=== PATIENT | female | born 1950 | race Caucasian/White ===

== ENCOUNTER → 2018-09-29 12:41 | Outpatient (CLI) | payer MEDICARE, SELFPAY ==
[2018-10-01 11:48] LABS: HPV Reflexed? NOT INDICATED
== END ==
PROVIDERS: Family Provider Internal Medicine Infectious Disease; PCP Internal Medicine Infectious Disease; Referring Provider Obstetrics & Gynecology; Visit Provider Obstetrics & Gynecology
DX: Z01.419 Encounter for gynecological examination (general) (routine) without abnormal findings (principal)
CPT/HCPCS: 87624; 88175; G0145

== ENCOUNTER → 2021-11-19 | Outpatient (CLI) | payer MEDICARE, SELFPAY ==
--- NOTE | 2021-11-19 07:07 | ECHOD_ITS ---
Reason For Study: Arrhythmia Procedure This was a 2D Doppler, Color Flow transthoracic echocardiogram. The exam was of adequate technical quality. Exam performed in department. Left Ventricle Normal LV size. Apical false tendon noted. Left ventricular systolic function is normal. The estimated ejection fraction is 60 %. Diastolic function is indeterminate. No regional wall motion abnormalities noted. Right Ventricle Normal RV size. Normal systolic function. Atria Normal left atrium. Normal right atrium. No doppler evidence for ASD. Mitral Valve There is no mitral annular calcification. Normal mitral valve. Mild (1+) mitral valve insufficiency. Tricuspid Valve Normal tricuspid valve. Trivial tricuspid valve insufficiency. Unable to estimate RV systolic pressure due to insufficient tricuspid regurgitant envelope. Aortic Valve Trisinus/trileaflet aortic valve. Moderate focal aortic valve calcification. Pulmonic Valve The pulmonic valve is not well visualized. Trivial pulmonic valve insufficiency. Great Vessels Normal sized aortic root. Pericardium/Pleural No pericardial effusion. MMode/2D Measurements & Calculations LVIDd: 4.5 cm IVSd: 0.94 cm Ao root diam: 3.2 cm LVIDs: 2.9 cm LVPWd: 0.91 cm RVDd: 2.5 cm FS: 35.4 % LAV(MOD-bp): 35.9 ml LVAd ap4: 25.7 cm2 LVAd ap2: 23.1 cm2 LAV(MOD-bp) Indexed: 20.4 ml/m2 LVLd ap4: 7.1 cm LVLd ap2: 7.1 cm LAV(MOD-sp2): 35.5 ml EDV(MOD-sp4): 77.2 ml EDV(MOD-sp2): 63.6 ml LAV(MOD-sp4): 36.0 ml EDV(sp4-el): 78.7 ml EDV(sp2-el): 63.5 ml LVAs ap4: 14.6 cm2 LVAs ap2: 13.4 cm2 LVLs ap4: 6.1 cm LVLs ap2: 6.2 cm ESV(MOD-sp4): 30.4 ml ESV(MOD-sp2): 25.7 ml ESV(sp4-el): 29.5 ml ESV(sp2-el): 24.5 ml EF(MOD-sp4): 60.6 % EF(MOD-sp2): 59.6 % EF(sp4-el): 62.5 % SV(MOD-sp4): 46.8 ml SV(MOD-sp2): 37.9 ml SV(sp4-el): 49.1 ml LA dimension(2D): 3.7 cm LA A4 area: 14.5 cm2 RA A4 area: 10.5 cm2 Time Measurements MV dec time: 0.19 sec Doppler Measurements & Calculations MV E max tommy: 86.9 cm/sec Lat Peak E' Tommy: 8.2 cm/sec Med Peak E' Tommy: 7.5 cm/sec MV A max tommy: 86.9 cm/sec E/E' lat: 10.5 E/E' med: 11.6 MV E/A: 1.0 MV dec slope: 454.5 cm/sec2 Ao V2 max: 135.6 cm/sec LV V1 max: 114.3 cm/sec Ao max P.4 mmHg LV V1 max P.2 mmHg Ao V2 mean: 92.9 cm/sec LV V1 mean P.8 mmHg Ao mean P.0 mmHg LV V1 mean: 79.5 cm/sec Ao V2 VTI: 32.9 cm LV V1 VTI: 26.6 cm PA V2 max: 106.9 cm/sec PA V2 mean: 74.6 cm/sec ECHO/Echo Complete Interpretation Summary Left ventricular systolic function is normal. The estimated ejection fraction is 60 %. Apical false tendon noted. Mild (1+) mitral valve insufficiency. Trivial tricuspid valve insufficiency. Moderate focal aortic valve calcification. Trivial pulmonic valve insufficiency. Unable to estimate RV systolic pressure due to insufficient tricuspid regurgita nt envelope. Diastolic function is indeterminate. Ordering Physician: Kevin De Leon Referring Physician: Poly Barrow Performed By: Sonya Kerr RDCS
== END | disposition home or self-care (01) ==
PROVIDERS: PCP Internal Medicine Infectious Disease; Referring Provider Internal Medicine Cardiovascular Disease; Visit Provider Internal Medicine Cardiovascular Disease
DX: R00.2 Palpitations (principal); I45.5 Other specified heart block; R00.0 Tachycardia, unspecified; E78.00 Pure hypercholesterolemia, unspecified; R94.31 Abnormal electrocardiogram [ECG] [EKG]
CPT/HCPCS: 78452; 93017; 93306; A9500; A4216

== ENCOUNTER → 2022-04-01 | Outpatient (CLI) | payer MEDICARE, SELFPAY ==
--- NOTE | 2022-04-01 13:26 | VDUE_ITS ---
Reason For Study: LUE SWELLING Right Proximal Left Proximal Right subclavian vein is spontaneous, widely Left jugular vein is spontaneous, widely patent, phasic, with no intraluminal patent, phasic, with no intraluminal echogenicity noted. echogenicity noted. Left Arm Left axillary vein is spontaneous, patent, phasic, competent, compressible and demonstrates augmentation. Left brachial vein is compressible. Left cephalic vein is compressible. Left basilic vein is compressible. Left Lower Arm Left radial vein is compressible. Left ulnar vein is compressible. VL/Venous Duplex US, Unilateral Interpretation Summary No evidence for acute deep venous thrombosis[left] upper extremity with patent and compressible cephalic and basilic veins. Normal flow patterns right subclavian vein Ordering Physician: Nay Welsh Referring Physician: Poly Barrow Performed By: Felicita Rios, RDHEATHER, RVT ???
== END | disposition home or self-care (01) ==
LOC: CVS 13:25
PROVIDERS: PCP Internal Medicine Infectious Disease; Visit Provider Nurse Practitioner Gerontology
DX: M79.89 Other specified soft tissue disorders (principal)
CPT/HCPCS: 36415; 80048; 93971

== ENCOUNTER → 2022-04-01 | Outpatient (CLI) | payer MEDICARE, SELFPAY ==
[2022-04-01 15:14] LABS: Anion Gap 9 (5-15); BUN 23 mg/dL (7-18); BUN/Creat Ratio 23.8 RATIO (10-20); Calcium,Total 9.3 mg/dL (8.5-10.1); Chloride 103 mmol/L (98-107); Creatinine, Serum 0.96 mg/dL (0.55-1.02); EST Glomerular Filtration Rate 61 mL/min (>60); Est Glom Filt Rate - Afr Amer 74 mL/min (>60); Glucose 128 mg/dL (74-106); Potassium 3.6 mmol/L (3.5-5.1); Sodium Level 138 mmol/L (136-145)
== END | disposition home or self-care (01) ==
LOC: LAB 12:13
PROVIDERS: PCP Internal Medicine Infectious Disease; Referring Provider Nurse Practitioner Gerontology; Visit Provider Nurse Practitioner Gerontology
DX: E87.6 Hypokalemia (principal)
CPT/HCPCS: 36415; 80048

== ENCOUNTER → 2024-04-06 | Outpatient (CLI) | payer MEDICARE, SELFPAY ==
[2024-04-06 14:58] LABS: Absolute Lymphocyte Count 2.53 X10^3/uL (0.83-4.51); Absolute Neutrophil Count 4.9 X10^3/uL (2.0-7.7); Basophil# 0.06 X10^3/uL; Basophil% 0.7 % (0-1); Eosinophil# 0.41 X10^3/uL; Eosinophils% 4.8 % (0-5); Hematocrit 35.9 % (37-47); Lymphocyte # 2.53 X10^3/ul (0.83-4.51); Lymphocyte % 29.8 % (19-41); Mean Corp Hgb Conc 30.6 g/dL (32-36); Mean Corpuscular Hgb 23.8 pg (27.0-32.0); Mean Corpuscular Volume 77.5 fL (81-99); Mean Platelet Vol. 10.7 fl (6.2-12.0); Monocyte# 0.61 X10^3/uL; Monocyte% 7.2 % (0-10); NRBC Flagged by Analyzer 0 % (0-5); Neutrophil # 4.86 X10^3/uL (2.7-7.7); Neutrophil % 57.1 % (47-70); Platelet Count 325 K/mm3 (150-450); RBC Distribution Width CV 16.1 % (11.6-14.6); RBC Distribution Width SD 45.3 fl (35.1-43.9); Red Blood Count 4.63 M/mm3 (4.2-5.4); White Blood Count 8.5 K/mm3 (4.4-11.0)
[2024-04-06 15:39] LABS: Anion Gap 3 (5-15); BUN 29 mg/dL (7-18); BUN/Creat Ratio 35.5 RATIO (10-20); Calcium,Total 9.5 mg/dL (8.5-10.1); Chloride 105 mmol/L (98-107); Creatinine, Serum 0.82 mg/dL (0.55-1.02); EST Glomerular Filtration Rate 73 mL/min (>60); Est Glom Filt Rate - Afr Amer 89 mL/min (>60); Glucose 102 mg/dL (74-106); Potassium 3.9 mmol/L (3.5-5.1); Sodium Level 138 mmol/L (136-145)
== END | disposition home or self-care (01) ==
LOC: LAB 14:37
PROVIDERS: PCP Internal Medicine Infectious Disease; Referring Provider Nurse Practitioner Family; Visit Provider Nurse Practitioner Family
DX: R00.2 Palpitations (principal); E11.9 Type 2 diabetes mellitus without complications; R00.0 Tachycardia, unspecified; E03.9 Hypothyroidism, unspecified; E87.6 Hypokalemia
CPT/HCPCS: 36415; 80048; 83735; 84443; 85025

== ENCOUNTER → 2024-04-08 | Outpatient (CLI) | payer MEDICARE, SELFPAY | END | disposition home or self-care (01) | LOC: PSN 08:15 | PROVIDERS: PCP Internal Medicine Infectious Disease; Referring Provider Nurse Practitioner Family; Visit Provider Nurse Practitioner Family | DX: R00.2 Palpitations (principal); I48.0 Paroxysmal atrial fibrillation; R00.0 Tachycardia, unspecified | CPT/HCPCS: 93225; 93226 ==

== ENCOUNTER → 2024-11-08 | Outpatient (CLI) | payer MEDICARE, SELFPAY ==
[2024-11-08 14:40] LABS: Hematocrit 34.5 % (37-47); Hemoglobin 10.4 g/dL (12.0-15.0); Immature Granulocytes Count 0.030 X10^3/uL (0.0-0.0); Mean Corp Hgb Conc 30.1 g/dL (32-36); Mean Corpuscular Volume 75.2 fL (81-99); Mean Platelet Vol. 10.6 fl (6.2-12.0); NRBC Flagged by Analyzer 0 % (0-5); Platelet Count 348 K/mm3 (150-450); RBC Distribution Width CV 17.0 % (11.6-14.6); RBC Distribution Width SD 45.3 fl (35.1-43.9); Red Blood Count 4.59 M/mm3 (4.2-5.4); White Blood Count 8.1 K/mm3 (4.4-11.0)
[2024-11-08 16:33] LABS: Anion Gap 15 (5-15); BUN 16 mg/dL (4-19); BUN/Creat Ratio 20.1 RATIO (10-20); Calcium,Total 9.6 mg/dL (7.6-11.0); Carbon Dioxide 22.9 mmol/L (21.0-32.0); Chloride 102 mmol/L (98-108); Glucose 140 mg/dL (70-99); Potassium 3.7 mmol/L (3.3-5.1)
== END | disposition home or self-care (01) ==
LOC: LAB 14:10
PROVIDERS: PCP Internal Medicine Infectious Disease; Referring Provider Nurse Practitioner Gerontology; Visit Provider Nurse Practitioner Gerontology
DX: R00.0 Tachycardia, unspecified (principal); R00.2 Palpitations
CPT/HCPCS: 36415; 80048; 84443; 85025

== ENCOUNTER → 2024-11-25 | Outpatient (CLI) | payer MEDICARE, SELFPAY ==
--- NOTE | 2024-11-25 15:51 | ECHOD_ITS ---
Reason For Study Reason For Study: MURMUR Procedure This was a 2D Doppler, Color Flow transthoracic echocardiogram. Exam performed in department. Left Ventricle Normal LV size. The estimated ejection fraction is 55 %. Stage 1 diastolic dysfunction. No regional wall motion abnormalities noted. Right Ventricle Normal RV size. Normal systolic function. Atria Normal left atrium. Normal right atrium. Mitral Valve Normal mitral valve. Tricuspid Valve Normal tricuspid valve. Aortic Valve Normal aortic valve. Trisinus/trileaflet aortic valve. Pulmonic Valve Normal pulmonic valve. Great Vessels Normal aortic root. The pulmonary artery is normal size. Inferior vena cava collapse with respiration. Pericardium/Pleural No pericardial effusion. MMode/2D Measurements & Calculations LVIDd: 4.5 cm IVSd: 0.86 cm Ao root diam: 3.0 cm LVIDs: 3.0 cm LVPWd: 0.93 cm RVDd: 2.2 cm FS: 33.8 % LAV(MOD-bp): 47.6 ml LVAd ap4: 21.0 cm2 SV(MOD-sp4): 33.4 ml LAV(MOD-bp) Indexed: 27.5 ml/m2 LVLd ap4: 6.0 cm SI(MOD-sp4): 19.4 ml/m2 LAV(MOD-sp2): 43.9 ml EDV(MOD-sp4): 61.8 ml LAV(MOD-sp4): 46.0 ml EDV(sp4-el): 62.6 ml LVAs ap4: 12.9 cm2 LVLs ap4: 5.0 cm ESV(MOD-sp4): 28.3 ml ESV(sp4-el): 28.3 ml EF(MOD-sp4): 54.2 % EF(sp4-el): 54.9 % SV(sp4-el): 34.4 ml LA A4 area: 16.9 cm2 LA dimension(2D): 4.0 cm RA A4 area: 9.9 cm2 Time Measurements MV dec time: 0.16 sec Doppler Measurements & Calculations MV E max tommy: 82.7 cm/sec Lat Peak E' Tommy: 10.2 cm/sec Med Peak E' Tommy: 8.6 cm/sec MV A max tommy: 103.7 cm/sec E/E' lat: 8.1 E/E' med: 9.6 MV E/A: 0.80 MV V2 max: 108.9 cm/sec MV P1/2t max tommy: 90.1 cm/sec Ao V2 max: 156.2 cm/sec MV max P.7 mmHg MV P1/2t: 46.1 msec Ao max P.8 mmHg MV V2 mean: 60.1 cm/sec Ao V2 mean: 113.8 cm/sec MV mean P.7 mmHg MV dec slope: 571.7 cm/sec2 Ao mean P.5 mmHg MV V2 VTI: 24.1 cm MVA(P1/2t): 4.8 cm2 Ao V2 VTI: 30.0 cm AV (velocity ratio): 0.70 LV V1 max: 100.5 cm/sec PA V2 max: 115.1 cm/sec PI end-d tommy: 129.2 cm/sec LV V1 max P.0 mmHg PA V2 mean: 84.2 cm/sec LV V1 mean P.0 mmHg LV V1 mean: 66.8 cm/sec LV V1 VTI: 20.9 cm ECHO/Echo Complete Interpretation Summary Normal LV size. The estimated ejection fraction is 55 %. Stage 1 diastolic dysfunction. Structurally normal valves. Ordering Physician: Nay Welsh Referring Physician: Poly Barrow Performed By: Felicita Rios RDCS, RVT
== END | disposition home or self-care (01) ==
LOC: CVS 15:50
PROVIDERS: PCP Internal Medicine Infectious Disease; Referring Provider Nurse Practitioner Gerontology; Visit Provider Nurse Practitioner Gerontology
DX: R01.1 Cardiac murmur, unspecified (principal)
CPT/HCPCS: 93306

== ENCOUNTER → 2024-12-02 | Outpatient (CLI) | payer MEDICARE, SELFPAY ==
--- OUTSIDE RECORDS SUMMARY | 2024-12-02 07:51 | XMS RPT_ITS | CCD ---
Author Organization [facility] Care Team Providers Care Predictive Maintenance Specialist Name Role Phone Dr. Poly Sutherland Primary Care Provider [phone] Maranda Vargas Attending Provider Unavailable Dr. Poly Sutherland Referring Provider Dr. Kevin De Leon Attending Provider [phone] Dr. Kevin De Leon Referring Provider Dr. Kevin De Leon Other Provider Dr. Poly Sutherland Primary Care Provider [phone] Poly Sutherland Referring Provider [phone] Blaise TAO, DRUG INSPECTOR-C Nay Attending Provider Dr. Jose F Ignacio Attending Provider Poly Sutherland MD Primary Care Provider DR POLY SUTHERLAND MD Primary Care Physician Poly Sutherland MD Primary Care Provider Dr. Poly Sutherland MD Primary Care Provider Dr. Poly Sutherland MD Referring Provider [phone] Blaise TAO-CNay Attending Provider ERASMO TAO, GABRIELLE BARKER Attending Unavaila FRANTZ Khan DO Unavailable DR POLY SUTHERLAND MD Primary Care Unavailable MILES, CHRISTEL Attending Unavailable POLY SUTHERLAND Primary Care Unavailable POLY SUTHERLAND Primary Care Unavailable MILES, CHRISTEL Attending Unavailable MILES, CHRISTEL Attending Unavailable POLY SUTHERLAND Primary Care Unavailable MILES, CHRISTEL Attending Unavailable POLY SUTHERLAND Primary Care Unavailable Blaise CABRALC, aNy Referring Provider [phone] MILES, CHRISTEL [facility] Primary Care Unavailable MILES, CHRISTEL BAG MACHINE OPERATOR Attending Unavailable POLY SUTHERLAND MD Consulting Unavailable MILES, CHRISTEL BAG MACHINE OPERATOR Admitting Unavailable PROVIDER, UNKNOWN Consulting Unavailable PROVIDER, UNKNOWN Consulting Unavailable PROVIDER, UNKNOWN Consulting Unavailable MILES, CHRISTEL BAG MACHINE OPERATOR Admitting Unavailable MILES, CHRISTEL BAG MACHINE OPERATOR Primary Care Unavailable MILES, CHRISTEL BAG MACHINE OPERATOR Attending Unavailable POLY SUTHERLAND MD Consulting Unavailable PROVIDER, UNKNOWN Consulting Unavailable PROVIDER, UNKNOWN Consulting Unavailable PROVIDER, UNKNOWN Consulting Unavailable POLY SUTHERLAND MD Consulting Unavailable ERASMO, GABRIELLE M Primary Care Unavailable ERASMO, GABRIELLE M Admitting Unavailable ERASMO, GABRIELLE M Attending Unavailable PROVIDER, UNKNOWN Consulting Unavailable PROVIDER, UNKNOWN Consulting Unavailable PROVIDER, UNKNOWN Consulting Unavailable MILES, CHRISTEL BAG MACHINE OPERATOR Admitting Unavailable MILES, CHRISTEL BAG MACHINE OPERATOR Primary Care Unavailable MILES, CHRISTEL BAG MACHINE OPERATOR Attending Unavailable POLY SUTHERLAND MD Consulting Unavailable PROVIDER, UNKNOWN Consulting Unavailable PROVIDER, UNKNOWN Consulting Unavailable PROVIDER, UNKNOWN Consulting Unavailable OPLY SUTHERLAND MD Primary Care Unavailable POLY SUTHERLAND MD Admitting Unavailable POLY SUTHERLAND MD Consulting Unavailable POLY SUTHERLAND MD Attending Unavailable PROVIDER, UNKNOWN Consulting Unavailable PROVIDER, UNKNOWN Consulting Unavailable PROVIDER, UNKNOWN Consulting Unavailable POLY SUTHERLAND MD Admitting Unavailable POLY SUTHERLAND MD Primary Care Unavailable POLY SUTHERLAND MD Consulting Unavailable POLY SUTHERLAND MD Attending Unavailable PROVIDER, UNKNOWN Consulting Unavailable PROVIDER, UNKNOWN Consulting Unavailable PROVIDER, UNKNOWN Consulting Unavailable POLY SUTHERLAND MD Primary Care Unavailable POLY SUTHERLAND MD Admitting Unavailable POLY SUTHERLAND MD Consulting Unavailable POLY SUTHERLAND MD Attending Unavailable PROVIDER, UNKNOWN Consulting Unavailable PROVIDER, UNKNOWN Consulting Unavailable PROVIDER, UNKNOWN Consulting Unavailable POLY SUTHERLAND MD Consulting Unavailable ERASMO, GABRIELLE M Primary Care Unavailable ERASMO, GABRIELLE M Admitting Unavailable ERASMO, GABRIELLE M Attending Unavailable PROVIDER, UNKNOWN Consulting Unavailable PROVIDER, UNKNOWN Consulting Unavailable PROVIDER, UNKNOWN Consulting Unavailable POLY SUTHERLAND MD Consulting Unavailable ERASMO, GABRIELLE M Admitting Unavailable ERASMO, GABRIELLE M Primary Care Unavailable ERASMO, GABRIELLE M Attending Unavailable PROVIDER, UNKNOWN Consulting Unavailable PROVIDER, UNKNOWN Consulting Unavailable PROVIDER, UNKNOWN Consulting Unavailable POLY SUTHERLAND MD Primary Care Unavailable POLY SUTHERLAND MD Admitting Unavailable POLY SUTHERLAND MD Consulting Unavailable POLY SUTHERLAND MD Attending Unavailable PROVIDER, UNKNOWN Consulting Unavailable PROVIDER, UNKNOWN Consulting Unavailable PROVIDER, UNKNOWN Consulting Unavailable POLY SUTHERLAND MD Primary Care Unavailable POLY SUTHERLAND MD Admitting Unavailable POLY SUTHERLAND MD Consulting Unavailable POLY SUTHERLAND MD Attending Unavailable GABRIELLE ZIMMERMAN Referring Unavailable PROVIDER, UNKNOWN Consulting Unavailable PROVIDER, UNKNOWN Consulting Unavailable PROVIDER, UNKNOWN Consulting Unavailable POLY SUTHERLAND MD Consulting Unavailable MIKE ZIMMERMANIDI M Admitting Unavailable ERASMO GABRIELLE M Attending Unavailable ERASMO GABRIELLE M Primary Care Unavailable PROVIDER, UNKNOWN Consulting Unavailable PROVIDER, UNKNOWN Consulting Unavailable PROVIDER, UNKNOWN Consulting Unavailable POLY SUTHERLAND MD Referring Unavailable POLY SUTHERLAND MD Consulting Unavailable ML HANKINS DO Attending Unavailable ML HANKINS DO Admitting Unavailable ML HANKINS DO Primary Care Unavailable PROVIDER, UNKNOWN Consulting Unavailable PROVIDER, UNKNOWN Consulting Unavailable PROVIDER, UNKNOWN Consulting Unavailable Omran, Yasser Primary Care Unavailable Roof DRUG INSPECTOR, Gordy H Attending Unavailable Omran, Yasser Primary Care Unavailable Axel, Jesse Attending Unavailable Roof DRUG INSPECTOR, Gordy H Referring Unavailable Omran, Yasser Referring Unavailable Welsh DRUG INSPECTOR, Nay Attending Unavailable Omran, Yasser Primary Care Unavailable Omran, Yasser Referring Unavailable Omran, Yasser Primary Care Unavailable Welsh DRUG INSPECTOR, Nay Attending Unavailable Welsh DRUG INSPECTOR, Nay Referring Unavailable Omran, Yasser Primary Care Unavailable Welsh DRUG INSPECTOR, Nay Attending Unavailable Welsh DRUG INSPECTOR, Nay Attending Unavailable Omran, Yasser Primary Care Unavailable Welsh DRUG INSPECTOR, Nay Referring Unavailable Omran, Yasser Primary Care Unavailable Welsh DRUG INSPECTOR, Nay Attending Unavailable Welsh DRUG INSPECTOR, Nay Referring Unavailable Omran, Yasser Primary Care Unavailable Roof DRUG INSPECTOR, Gordy H Attending Unavailable Roof DRUG INSPECTOR, Gordy H Referring Unavailable Omran, Yasser Primary Care Unavailable Roof DRUG INSPECTOR, Gordy H Attending Unavailable Roof DRUG INSPECTOR, Gordy H Referring Unavailable Axel, Belton Attending Unavailable Omran, Yasser Primary Care Unavailable Welsh DRUG INSPECTOR, Nay Attending Unavailable Omran, Yasser Primary Care Unavailable Allergies Allergy Classification Reported Allergen(s) Allergy Type Date of Onset Reaction(s) Facility (20 sources) Azithromycin; Translations: [azithromycin] Drug Allergy 3 Rash [facility] Work Phone: (20 sources) Erythromycin; Translations: [ERYTHROMYCIN BASE] Drug Allergy 3 Rash and Hives [facility] Work Phone: (1 source) Azithromycin Drug Allergy [facility] Repository (1 source) Erythromycin Drug Allergy [facility] Repository (1 source) Azithromycin Drug Allergy 5 [facility] Repository (1 source) Erythromycin Drug Allergy 5 [facility] Repository Medications Current Medications Medication Drug Class(es) Dates Sig (Normalized) Sig (Original) aspirin 81 mg delayed release oral tablet (20 sources) Platelet Aggregation Inhibitor, Nonsteroidal Anti-inflammatory Drug Start: 10-28-2021 Aspirin (Adult Low Dose Aspirin) 81 mg tablet,delayed release (DR/EC) Active 81 mg PO DAILY October 28, 2021 12:00am atenolol 50 mg oral tablet (20 sources) beta-Adrenergic Ashley Start: 10-29-2021 take 25 mg by mouth once daily Atenolol Active 25 MG PO DAILY October 29, 2021 3:51pm Start: 10-28-2021 End: 10-29-2021 take 1 tablet by mouth once daily Atenolol 50 mg tablet Discontinued 50 mg PO DAILY October 28, 2021 12:00am October 29, 2021 4:55pm Start: 11-17-2009 take 1 dose by mouth once beth y atenolol Dose : 25 mg =, PO, Daily, 0 Refill(s), current med (Hx) Start Date: 11/17/09 Status: Ordered Repeat number: 1 Start: 08-23-2008 Atenolol 50 mg tablet Active 25 mg PO DAILY October 29, 2021 4:51pm cholecalciferol 0.025 mg oral tablet (8 sources) Vitamin D Start: 11-08-2024 take 1 tablet by mouth every other day Cholecalciferol (Vitamin D3) 25 mcg (1,000 unit) tablet Active 25 ug PO .qod November 08, 2024 1:31pm Start: 10-28-2021 End: 11-08-2024 take 1 tablet by mouth once daily Cholecalciferol (Vitamin D3) 25 mcg (1,000 unit) tablet Discontinued 25 ug PO DAILY October 28, 2021 12:00am November 08, 2024 1:32pm clobetasol propionate 0.5 mg/ml topical cream (19 sources) Corticosteroid Start: 01-19-2023 clobetasol (TE MOVATE) 0.05 % cream Apply to affected area 1-3x/week for maintenance. 60 g 01/19/2023 Active Start: 10-28-2021 End: 10-29-2021 Clobetasol 0.05 % ointment D iscontinued 1 NMA TOPICAL DAILY as needed October 28, 2021 12:00am October 29, 2021 3:43pm estradiol 0.01 mg vaginal insert (20 sources) Estrogen Start: 07-11-2024 Yuvafem 10 mcg vaginal insert 0 Refill(s) Start Date: 07/11/24 Status: Ordered Repeat number: 1 Start: 12-04-2023 End: 01-22-2024 Estradiol (YUVAFEM) 10 mcg v aginal tablet Use 1 tablet vaginally once daily for 7 days. 7 tablet 12/04/2023 01/22/2024 Discontinued Start: 10-29-2021 End: 12-03-2024 Estradiol (Yuvafem) 10 mcg t ablet Active 10 ug VAGINAL TWICE A WEEK October 29, 2021 12:00am Start: 10-29-2021 Estradiol (Yuv afem) 10 mcg tablet Active 10 MCG VAGINAL TWICE A WEEK October 28, 2021 11:00pm fluconazole 150 mg oral tablet (11 sources) Azole Antifungal Start: 10-29-2021 End: 04-01-2022 Fluconazole 150 mg tablet Active 150 mg PO Q4D as needed April 01, 2022 12:43pm hydroCHLOROthiazide 25 mg oral tablet (20 sources) Thiazide Diuretic Start: 10-28-2021 take 1 tablet by mouth once daily Hydrochlorothiazide 25 mg tablet Active 25 mg PO DAILY October 28, 2021 12:00am ibuprofen 200 mg oral tablet (19 sources) Nonsteroidal Anti-inflammator y Drug Start: 10-28-2021 take 1 tablet by mouth every six hours as needed Ibuprofen (Advil) 200 mg tablet Active 200 mg PO EVERY 6 HOURS as needed October 28, 2021 12:00am ibuprofen (ADVIL ORAL) Take by mouth. Active ibuprofen (ADVIL ORAL) Take by mouth. 0 Active levothyroxine sodium 0.05 mg oral tablet (20 sources) l-Thyroxine Start: 07-11-2024 Synthroid 75 m cg (0.075 mg) oral tablet Dose : 75 mcg = 1 tab(s), Oral, qDay, # 30 tab(s), 0 Refill(s) Start Date: 07/11/24 Status: Ordered Quantity: 30.0 Unit: tab(s) Repeat number: 1 Start: 11-24-2022 SYNTHROID 75 m cg tablet 11/24/2022 Active Start: 10-28-2021 End: 09-19-2024 Levothyroxine 50 mcg tablet Discontinued 75 ug PO .COMPLEX September 04, 2022 11:19am September 19, 2024 3:16pm 75 mcg orally 1 tab daily except take 2 tabs on Thursday; LORazepam 0.5 mg oral tablet (20 sources) Benzodiazepine Start: 10-28-2021 take 1 tablet by mouth twice daily as needed Lorazepam 0.5 mg tablet Active 0.5 mg PO TWICE A DAY as needed October 28, 2021 12:00am lutein 20 mg oral capsule (7 sources) Start: 10-28-2021 take 1 capsule by mouth once daily Lutein 20 mg capsule Active 20 mg PO DAILY October 28, 2021 12:00am give with meal/snack metFORMIN hydrochloride 500 mg oral tablet (20 sources) Biguanide Start: 11-08-2024 take 2 tablets by mouth twice daily Metformin 500 mg tablet Active 1000 mg PO TWICE A DAY November 08, 2024 1:31pm Start: 12-25-2022 take 1 tablet by carito twice daily metFORMIN ER (GLUCOPHAGE XR) 500 mg 24 hr tablet Take 1,000 mg by mouth two times a day. 12/25/2022 Active Start: 10-28-2021 End: 11-08-2024 take 1 tablet by mouth twice daily Metformin 500 mg tablet Discontinued 500 mg PO TWICE A DAY October 28, 2021 12:00am November 08, 2024 1:32pm omega3/dha/epa/fish oil/vit D3 (OMEGA-3 PLUS VITAMIN D3 ORAL) (13 sources) omega3/dha/epa/f louisa oil/vit D3 (OMEGA-3 PLUS VITAMIN D3 ORAL) Take by mouth. Active omega3/dha/epa/f louisa oil/vit D3 (OMEGA-3 PLUS VITAMIN D3 ORAL) Take by mouth. 0 Active omeprazole 40 mg delayed release oral capsule (20 sources) Proton Pump Inhibitor Start: 10-28-2021 take 1 capsule by mouth once daily Omeprazole 40 mg capsule,delayed release(DR/EC) Active 40 mg PO DAILY October 28, 2021 12:00am potassium chloride 20 meq oral tablet (20 sources) Start: 07-11-2024 Potassium Chlo ride (Eqv-K-Tab) 20 mEq oral tablet, extended release Dose : 20 mEq = 1 tab(s), Oral, BID, # 60 tab(s), 0 Refill(s) Start Date: 07/11/24 Status: Ordered Quantity: 60.0 Unit: tab(s) Repeat number: 1 Start: 10-28-2021 take 1 tablet by carito th twice daily Potassium Chloride 20 mEq tablet extended release Active 20 meq PO TWICE A DAY October 28, 2021 12:00am rosuvastatin calcium 5 mg oral tablet (20 sources) HMG-CoA Reductase Inhibitor Start: 07-11-2024 rosuvastatin 5 mg or al tablet Dose : 5 mg = 1 tab(s), Oral, Daily, 0 Refill(s) Start Date: 07/11/24 Status: Ordered Repeat number: 1 Start: 09-04-2022 take 5 mg by mouth once daily Rosuvastatin 20 mg tablet Active 5 mg PO DAILY September 04, 2022 11:19am Start: 10-29-2021 End: 09-04-2022 take 1 tablet by mouth once daily Rosuvastatin 20 mg tablet Discontinued 20 mg PO DAILY October 29, 2021 12:00am September 04, 2022 11:19am Start: 10-28-2021 End: 10-29-2021 take 1 tablet by mouth once daily Rosuvastatin 5 mg tablet Discontinued 5 mg PO DAILY October 28, 2021 12:00am October 29, 2021 3:42pm sulfamethoxazole 800 mg / trimethoprim 160 mg oral tablet (6 sources) Dihydrofolate Reductase Inhibitor Antibacterial, Sulfonamide Antimicrobial Start: 02-04-2024 End: 08-05-2024 take 1 tablet by mouth every twelve hours sulfamethoxazole-trimethoprim (BACTRIM DS) 800-160 mg per tablet Take 1 tablet by mouth every 12 hours. 02/04/2024 08/05/2024 Discontinued (Other) triamcinolone acetonide 1 mg/ml topical cream (19 sources) Corticosteroid Start: 10-29-2021 Triamcinolone Acetonide 0.1 % cream Active 1 NMA TOPICAL DAILY as needed October 29, 2021 12:00am triamcinolone (K ENALOG) 0.1 % lotion Apply to affected area as needed. Active ubidecarenone 100 mg oral capsule (9 sources) Start: 10-28-2021 take 10 capsules by mouth once daily Coenzyme Q10 100 mg capsule Active 100 mg PO DAILY October 28, 2021 12:00am End: 01-22-2024 ubidecarenone Q-10 (CO Q-10) 10 mg cap Take by mouth two times a day. 01/22/2024 Discontinued Vitamin D3 25 mcg (1000 intl units) oral capsule (1 source) Start: 07-11-2024 Vitamin D3 25 mcg (1000 intl units) oral capsule Dose : 25 mcg = 1 cap(s), Oral, Daily, 0 Refill(s) Start Date: 07/11/24 Status: Ordered Repeat number: 1 Completed/Discontinued Medications Medication Drug Class(es) Dates Sig (Normalized) Sig (Original) clobetasol propionate/emoll (CLOBETASOL E TOPICAL) (3 sources) End: 01-22-2024 clobetasol propionate/emoll (CLOBETASOL E TOPICAL) Apply to affected area. 01/22/2024 Discontinued clobetasol propi billy/emoll (CLOBETASOL E TOPICAL) Apply to affected area. Active clobetasol propi billy/emoll (CLOBETASOL E TOPICAL) Apply to affected area. 0 Active cloNIDine hydrochloride 0.1 mg oral tablet (3 sources) Central alpha-2 Adrenergic Agonist End: 01-22-2024 cloNIDine HCl (CATAPRES) 0.1 mg tablet Take 0.1 mg by mouth as needed. 01/22/2024 Discontinued metroNIDAZOLE 0.0075 mg/mg vaginal gel (5 sources) Nitroimidazole Antimicrobial Start: 08-08-2024 End: 08-13-2024 metroNIDAZOLE (METROGEL) 0.75 % (37.5mg/5 gram) Vaginal Gel Use 1 applicatorful vaginally daily at bedtime for 5 days. 70 g 08/08/2024 08/13/2024 Start: 02-22-2024 End: 02-27-2024 metroNIDAZOLE (METROGEL VAGI NAL) 0.75 % (37.5mg/5 gram) Vaginal Gel Use 1 Applicatorful vaginally daily at bedtime for 5 days. 70 g 02/22/2024 02/27/2024 Active Start: 02-22-2024 End: 02-22-2024 take 1 tablet by mouth twice daily metroNIDAZOLE (FLAGYL) 500 mg tablet Take 1 tablet by mouth two times a day for 7 days. 14 tablet 02/22/2024 02/22/2024 Discontinued Start: 01-23-2024 End: 01-30-2024 take 1 tablet by mouth twice daily metroNIDAZOLE (FLAGYL) 500 mg tablet Take 1 tablet by mouth two times a day for 7 days. 14 tablet 01/23/2024 01/30/2024 Active Start: 12-07-2023 End: 12-14-2023 take 1 tablet by mouth twice daily metroNIDAZOLE (FLAGYL) 500 mg tablet Indications: Bacterial vaginosis Take 1 tablet by mouth two times a day for 7 days. 14 tablet 12/07/2023 12/14/2023 Active vit C/vit E acet/lutein/min (OCUVITE LUTEIN ORAL) (3 sources) End: 01-22-2024 vit C/vit E acet/lutein/min (OCUVITE LUTEIN ORAL) Take by mouth. 01/22/2024 Discontinued vit C/vit E acet /lutein/min (OCUVITE LUTEIN ORAL) Take by mouth. Active vit C/vit E acet /lutein/min (OCUVITE LUTEIN ORAL) Take by mouth. 0 Active Problems Active Problems Problem Classification Problem Date Documented Date Episodic/Chronic Acute cerebrovascular disease (6 sources) Cerebrovascular accident; Translations: [Cerebral infarction, unspecified] 10-28-2021 Chronic Asthma (6 sources) Asthma; Translations: [Unspecified asthma, uncomplicated] 10-28-2021 Chronic Cardiac dysrhythmias (20 sources) Palpitations; Translations: [Palpitations] Onset: 11-08-2024 Episodic Conduction disorders (15 sources) Sinus node dysfunction; 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 specified heart block] Onset: 11-08-2024 Chronic Deficiency and other anemia (1 source) Anemia, unspecified; Translations: [Anemia, unspecified] Onset: 11-16-2024 Episodic Diabetes mellitus with complications (3 sources) Type 2 diabetes mellitus with hyperglycemia; Translations: [Type 2 diabetes mellitus with hyperglycemia] Onset: 08-19-2024 Chronic Diabetes mellitus without complication (10 sources) Type 2 diabetes mellitus; Translations: [Type 2 diabetes mellitus without complications] Onset: 04-28-2024 10-28-2021 Chronic Disorders of lipid metabolism (20 sources) Pure hypercholesterolemia; Translations: [Pure hypercholesterolemia, unspecified] Onset: 08-18-2002 Chronic Esophageal disorders (6 sources) Gastroesophageal reflux disease; Translations: [Gastro-esophageal reflux disease without esophagitis] 10-28-2021 Chronic Essential hypertension (13 sources) Essential hypertension; Translations: [Essential (primary) hypertension] Onset: 08-18-2002 10-29-2023 Chronic Fluid and electrolyte disorders (11 sources) Hypokalemia; Translations: [Hypokalemia] Episodic Heart valve disorders (2 sources) Cardiac murmur, unspecified; Translations: [Cardiac murmur, unspecified] Onset: 11-08-2024 Episodic Inflammatory diseases of female pelvic organs (1 source) Bacterial vaginosis; Translations: [Acute vaginitis] 12-07-2023 Episodic Menopausal disorders (13 sources) Menopausal symptom; Translations: [Menopausal and female climacteric states] Onset: 08-18-2002 10-29-2023 Chronic Nutritional deficiencies (1 source) Vitamin D deficiency, unspecified; Translations: [Vitamin D deficiency, unspecified] Onset: 08-19-2024 Chronic Other circulatory disease (4 sources) Elevated blood pressure; Translations: [Elevated blood-pressure reading, without diagnosis of hypertension] 09-04-2022 Episodic Other female genital disorders (2 sources) Vaginal irritation; 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 specified noninflammatory disorders of vagina] 12-04-2023 Episodic Other female genital disorders (2 sources) Vulval irritation; 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 specified noninflammatory disorders of vulva and perineum] 01-22-2024 Episodic Other female genital disorders (1 source) Pruritus of vagina; 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 specified noninflammatory disorders of vagina] 08-05-2024 Episodic Residual codes; unclassified (5 sources) Edema of right upper arm; Translations: [Localized edema] 04-01-2022 Episodic Residual codes; unclassified (2 sources) Localized edema; Translations: [Edema] Episodic Thyroid disorders (13 sources) Hypothyroidism; Translations: [Hypothyroidism, unspecified] Onset: 05-16-2024 10-28-2021 Chronic Unclassified (2 sources) Dense breasts, unspecified; Translations: [Dense breasts, unspecified] Onset: 05-10-2024 Unclassified (1 source) Unspecified lump in the right breast, overlapping quadrants; Translations: [Unspecified lump in the right breast, overlapping quadrants] Onset: 05-10-2024 Past or Other Problems Problem Classification Problem Date Documented Date Episodic/Chronic Allergic reactions (13 sources) Radiation-induced dermatosis; 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 skin changes due to chronic exposure to nonionizing radiation] Onset: 03-25-2006 10-29-2023 Episodic Other circulatory disease (13 sources) Non-neoplastic nevus; Translations: [Nevus, non-neoplastic] Onset: 03-25-2006 10-29-2023 Episodic Other circulatory disease (13 sources) Disorder of capillaries; Translations: [Disease of capillaries, unspecified] Onset: 03-25-2006 10-29-2023 Episodic Other female genital disorders (1 source) Other specified noninflammatory disorders of vagina; Translations: [Vaginal itching] Onset: 08-05-2024 Episodic Other lower respiratory disease (13 sources) Cough; Translations: [Cough] Onset: 01-02-2006 10-29-2023 Episodic Other screening for suspected conditions (not mental disorders or infectious disease) (7 sources) Patient encounter status; Translations: [Encounter for screening mammogram for malignant neoplasm of breast] Onset: 05-06-2024 01-22-2024 Episodic Other skin disorders (13 sources) Actinic keratosis; Translations: [Actinic keratosis] Onset: 03-25-2006 10-29-2023 Episodic Other skin disorders (13 sources) Disorder of skin pigmentation; Translations: [Disorder of pigmentation, unspecified] Onset: 03-25-2006 10-29-2023 Episodic Residual codes; unclassified (3 sources) Procedure and treatment not carried out due to patient leaving prior to being seen by health care provider; Translations: [Procedure and treatment not carried out due to patient leaving prior to being seen by health care provider] Onset: 05-04-2024 Episodic Unclassified (1 source) Dense breasts, unspecified; Translations: [Dense breasts, unspecified] Onset: 05-10-2024 Results Test Name Value Interpretation Reference Range Facil itlucrecia Echo Completeon 11-25-2024 Echo Complete [facility] [place] [address] Echo Complete 11/25/24 1557 MR#: [id number] Acct: [id number] Name: GEMA ROMERO Rep #: [id number] : [id number] 73 From: Jesse Reyna MD Attending Dr: Nay Welsh DRUG INSPECTOR-C Status: JIM CLOUD Ordering Dr: Nay Welsh DRUG INSPECTOR DRUG INSPECTOR-C Date: 11/25/24 Location: [facility] Sex: F C Admitted: Reason For Study Reason For Study: MURMUR Procedure This was a 2D Doppler, Color Flow transthoracic echocardiogram. Exam performed in department. Left Ventricle Normal LV size. The estimated ejection fraction is 55 %. Stage 1 diastolic dysfunction. No regional wall motion abnormalities noted. Right Ventricle Normal RV size. Normal systolic function. Atria Normal left atrium. Normal right atrium. Mitral Valve Normal mitral valve. Tricuspid Valve Normal tricuspid valve. Aortic Valve Normal aortic valve. Trisinus/trileaflet aortic valve. Pulmonic Valve Normal pulmonic valve. Great Vessels Normal aortic root. The pulmonary artery is normal size. Inferior vena cava collapse with respiration. Pericardium/Pleural No pericardial effusion. MMode/2D Measurements Calculations LVIDd: 4.5 cm IVSd: 0.86 cm Ao root diam: 3.0 cm LVIDs: 3.0 cm LVPWd: 0.93 cm RVDd: 2.2 cm FS: 33.8 % LAV(MOD-bp): 47.6 ml LVAd ap4: 21.0 cm2 SV(MOD-sp4): 33.4 ml LAV(MOD-bp) Indexed: 27.5 ml/m2 LVLd ap4: 6.0 cm SI(MOD-sp4): 19.4 ml/m2 LAV(MOD-sp2): 43.9 ml EDV(MOD-sp4): 61.8 ml LAV(MOD-sp4): 46.0 ml EDV(sp4-el): 62.6 ml LVAs ap4: 12.9 cm2 LVLs ap4: 5.0 cm ESV(MOD-sp4): 28.3 ml ESV(sp4-el): 28.3 ml EF(MOD-sp4): 54.2 % EF(sp4-el): 54.9 % SV(sp4-el): 34.4 ml LA A4 area: 16.9 cm2 LA dimension(2D): 4.0 cm RA A4 area: 9.9 cm2 Time Measurements MV dec time: 0.16 sec Doppler Measurements Calculations MV E max jose angel: 82.7 cm/sec Lat Peak E' Jose Angel: 10.2 cm/sec Med Peak E' Jose Angel: 8.6 cm/sec MV A max jose angel: 103.7 cm/sec E/E' lat: 8.1 E/E' med: 9.6 MV E/A: 0.80 MV V2 max: 108.9 cm/sec MV P1/2t max jose angel: 90.1 cm/sec Ao V2 max: 156.2 cm/sec MV max P.7 mmHg MV P1/2t: 46.1 msec Ao max P.8 mmHg MV V2 mean: 60.1 cm/sec Ao V2 mean: 113.8 cm/sec MV mean P.7 mmHg MV dec slope: 571.7 cm/sec2 Ao mean P.5 mmHg MV V2 VTI: 24.1 cm MVA(P1/2t): 4.8 cm2 Ao V2 VTI: 30.0 cm AV (velocity ratio): 0.70 LV V1 max: 100.5 cm/sec PA V2 max: 115.1 cm/sec PI end-d jose angel: 129.2 cm/sec LV V1 max P.0 mmHg PA V2 mean: 84.2 cm/sec LV V1 mean P.0 mmHg LV V1 mean: 66.8 cm/sec LV V1 VTI: 20.9 cm ECHO/Echo Complete Interpretation Summary Normal LV size. The estimated ejection fraction is 55 %. Stage 1 diastolic dysfunction. Structurally normal valves. Ordering Physician: Nay Welsh Referring Physician: Poly Sutherland Performed By: Felicita Rios, JAZZ, RVT 11/28/24 133 Date Jesse Reyna MD CC: DRUG INSPECTOR-C Nay Welsh; Dr. Poly Sutherland MD Date Dictated: 11/25/241556 Date Transcribed: 11/28/241330 [place]: Signed Normal [facility] FOLATESon 11-16-2024 FOLATES 14.1 ng/ml Normal 8.6 - 58.9 [facility] Comment on above: Performed By: #### 2 [id number] #### [address] [address] IRON AND TIBCon 11-16-2024 %SATURATION 5 % Normal [facility] Comment on above: Performed By: #### 2 [id number] #### [address] [address] Iron [Mass/Vol] 22 ug/dL Low 50 - 170 [facility] Comment on above: Performed By: #### 2 76468 #### [address] [address] TIBC 480 ug/dl High 250 - 450 [facility] Comment on above: Performed By: #### 2 63947 #### [address] [address] UIBC >450 High 155 - 355 [facility] Comment on above: Performed By: #### 2 06852 #### [facility],[address] [place] [address] VITAMIN B-12on 11-16-2024 Cobalamin (Vitamin B12) [Mass/Vol] 331 pg/mL Normal 193 - 986 [facility] Comment on above: Performed By: #### 2 36794 ####[facility],[address] [place], [place] [id number] 3D MAMM UNILAT RT DIAGNOSTIC on 11-08-2024 3D MAMM UNILAT RT DIAGNOSTIC [address] [address] Patient: GEMA ROMERO Phone#: : 1950 Age: 73 Gender: F Pt. Type: Out Account: [id number] Location: [facility] Ordering: CHRISTEL SANCHES Exam Date: 11/08/2024/10:11 Family Phys: POLY SUTHERLAND Charge Code: [id number] Physician: [place] Order #: [id number] Dose#: PROCEDURE: RIGHT DIAGNOSTIC BREAST TOMOSYNTHESIS MAMMOGRAM WITH CAD COMPARISON: [facility], RT UNILAT DIAGNOSTIC, 05/10/2024, 10:04. INDICATIONS: Six month follow-up. BREAST COMPOSITION: The breasts are extremely dense, which lowers the sensitivity of mammography FINDINGS: DIAGNOSTIC CATEGORY 3--PROBABLY BENIGN: FINDING(S) HAS A HIGH PROBABILITY OF A BENIGN; RIGHT BREAST: FOCAL CALCIFICATIONS, characterized by amorphous mildly suspicious morphology, posterior depth, seen only on the craniocaudal view in the lateral position, and 5- 10 in number. RECOMMENDATIONS: SHORT TERM FOLLOW-UP DIAGNOSTIC MAMMOGRAM RIGHT BREAST IN 6 MONTHS at the time of annual bilateral screening. PLEASE NOTE: A NORMAL MAMMOGRAM DOES NOT EXCLUDE THE POSSIBILITY OF BREAST CANCER. A CLINICALLY SUSPICIOUS PALPABLE LUMP SHOULD BE BIOPSIED. THIS FACILITY UTILIZES A REMINDER SYSTEM TO ENSURE THAT ALL PATIENTS RECEIVE REMINDER LETTERS FOR APPOINTMENTS. THIS INCLUDES REMINDERS FOR ROUTINE MAMMOGRAMS, DIAGNOSITC MAMMOGRAMS, OR OTHER BREAST IMAGING INTERVENTIONS WHEN APPROPRIATE. THIS PATIENT WILL BE PLACED IN THE APPROPRIATE REMINDER SYSTEM. Dictated by: Vee Huynh MD on 11/08/2024 at 12:54 Approved by: Vee Huynh MD on 11/08/2024 at 12:58 Normal [facility] Absolute lymphocyte countOrd ered By: Nay Welsh on 11-08-2024 Lymphocytes Auto (Unsp spec) [#/Vol] 2.09 10*3/uL 0.83-4.51 [facility] Absolute neutrophil countOrd ered By: Nay Welsh on 11-08-2024 Neutrophils (Bld) [#/Vol] 4.9 10*3/uL 2.0-7.7 [facility] Anion gap in Serum or Plasma Ordered By: Nay Welsh on 11-08-2024 Anion gap [Moles/Vol] 15 mmol/L 5-15 [facility] Automated lymphocyte count a s percentage of total leukocytesOrdered By: Nay Welsh on 11-08-2024 Lymphocytes/100 WBC Auto (Unsp spec) 25.9 % 19-41 [facility] BUN/creatinine ratioOrdered By: Nay Welsh on 11-08-2024 Urea nitrogen/Creatinine [Mass ratio] 20.1 mg/mg High 10-20 [facility] Basic Metabolic Profile (BMP )on 11-08-2024 BUN/CRE 20.1 RATIO High 10- [facility] Comment on above: Performed By: #### L 100.0100, L501.9520, L500.2500 #### [facility] [address] [place], [address] Calcium [Mass/Vol] 9.6 mg/dL Normal 7.6-11.0 [facility] Comment on above: Performed By: #### L 100.0100, L501.9520, L500.2500 #### [facility] [address] [place], [address] Chloride [Moles/Vol] 102 mmol/L Normal 98-108 [facility] Comment on above: Performed By: #### L 100.0100, L501.9520, L500.2500 #### [facility] [address] [place], [address] CO2 [Moles/Vol] 22.9 mmol/L Normal 21.0-32.0 [facility] Comment on above: Performed By: #### L 100.0100, L501.9520, L500.2500 #### [facility] [address] [place], [address] Creatinine [Mass/Vol] 0.79 mg/dL Normal 0.70-1.20 [facility] Comment on above: Performed By: #### L 100.0100, L501.9520, L500.2500 #### [facility] [address] [place], [address] GAP 15 Normal 5-15 [facility] Comment on above: Performed By: #### L 100.0100, L501.9520, L500.2500 #### [facility] [address] [place], [address] GFR/1.73 sq M.predicted among non-blacks MDRD (S/P/Bld) [Vol rate/Area] 80 mL/min/{1.73_m2} Normal >60 [facility] Comment on above: Result Comment: mL/m in/1.73m2 CKD-EPI Creatinine Equation (2020) Performed By: #### L 100.0100, L501.9520, L500.2500 #### [facility] [address] [place], [address] Glucose [Mass/Vol] 140 mg/dL High 70-99 [facility] Comment on above: Performed By: #### L 100.0100, L501.9520, L500.2500 #### [facility] [address] [place], [address] Potassium [Moles/Vol] 3.7 mmol/L Normal 3.3-5.1 [facility] Comment on above: Performed By: #### L 100.0100, L501.9520, L500.2500 #### [facility] [address] [place], [address] Sodium [Moles/Vol] 140 mmol/L Normal 133-145 [facility] Comment on above: Performed By: #### L 100.0100, L501.9520, L500.2500 #### [facility] [address] [place], [address] Urea nitrogen [Mass/Vol] 16 mg/dL Normal 4-19 [facility] Comment on above: Performed By: #### L 100.0100, L501.9520, L500.2500 #### [facility] [address] [place], [address] Basophil percentageOrdered B y: Nay Welsh on 11-08-2024 Basophils/100 WBC (Bld) 0.6 % 0-1 [facility] CBC W/Diff, Automatedon 10-19 Absolute Lymph 2.09 X10 3/uL Normal 0.83-4.51 [facility] Comment on above: Performed By: #### L 100.0100, L501.9520, L500.2500 #### [facility] [address] [place], [address] Absolute Neut 4.9 X10 3/uL Normal 2.0-7.7 [facility] Comment on above: Performed By: #### L 100.0100, L501.9520, L500.2500 #### [facility] [address] [place], [address] Basophils/100 WBC (Bld) 0.6 % Normal 0-1 [facility] Comment on above: Performed By: #### L 100.0100, L501.9520, L500.2500 #### [facility] [address] [place], [address] Eosinophils/100 WBC (Bld) 4.1 % Normal 0-5 [facility] Comment on above: Performed By: #### L 100.0100, L501.9520, L500.2500 #### [facility] [address] [place], [address] Erythrocyte distribution width (RBC) [Ratio] 17.0 % High 11.6-14.6 [facility] Comment on above: Performed By: #### L 100.0100, L501.9520, L500.2500 #### [facility] [address] [place], [address] Hematocrit (Bld) [Volume fraction] 34.5 % Low 37-47 [facility] Comment on above: Performed By: #### L 100.0100, L501.9520, L500.2500 #### [facility] [address] [place], [address] Hemoglobin (Bld) [Mass/Vol] 10.4 g/dL Low 12.0-15.0 [facility] Comment on above: Performed By: #### L 100.0100, L501.9520, L500.2500 #### [facility] [address] [place], [address] IG% 0.400 Normal 0.0-0.9 [facility] Comment on above: Result Comment: IG% - Immature Granulocytes (promyelocytes, myelocytes and metamyelocytes) > 1% indicates that a LEFT SHIFT is Present. Performed By: #### L 100.0100, L501.9520, L500.2500 #### [facility] [address] [place], [address] Lymphocytes/100 WBC (Bld) 25.9 % Normal 19-41 [facility] Comment on above: Performed By: #### L 100.0100, L501.9520, L500.2500 #### [facility] [address] [place], [address] MCH (RBC) [Entitic mass] 22.7 pg Low 27.0-32.0 [facility] Comment on above: Performed By: #### L 100.0100, L501.9520, L500.2500 #### [facility] [address] [place], [address] MCHC (RBC) [Mass/Vol] 30.1 g/dL Low 32-36 [facility] Comment on above: Performed By: #### L 100.0100, L501.9520, L500.2500 #### [facility] [address] [place], [address] MCV (RBC) [Entitic vol] 75.2 fL Low 81-99 [facility] Comment on above: Performed By: #### L 100.0100, L501.9520, L500.2500 #### [facility] [address] [place], [address] Monocytes/100 WBC (Bld) 7.7 % Normal 0-10 [facility] Comment on above: Performed By: #### L 100.0100, L501.9520, L500.2500 #### [facility] [address] [place], [address] Neutrophils/100 WBC (Bld) 61.3 % Normal 47-70 [facility] Comment on above: Performed By: #### L 100.0100, L501.9520, L500.2500 #### [facility] [address] [place], [address] Nucleated RBC (Bld) [#/Vol] 0 10*3/uL Normal 0-5 [facility] Comment on above: Performed By: #### L 100.0100, L501.9520, L500.2500 #### [facility] [address] [place], [address] Platelet mean volume (Bld) [Entitic vol] 10.6 fL Normal 6.2-12.0 [facility] Comment on above: Performed By: #### L 100.0100, L501.9520, L500.2500 #### [facility] [address] [place], [address] Platelets (Bld) [#/Vol] 348 10*3/uL Normal 150-450 [facility] Comment on above: Performed By: #### L 100.0100, L501.9520, L500.2500 #### [facility] [address] [place], [address] RBC (Bld) [#/Vol] 4.59 10*6/uL Normal 4.2-5.4 [facility] Comment on above: Performed By: #### L 100.0100, L501.9520, L500.2500 #### [facility] [address] [place], [address] RDW SD 45.3 fl High 35.1-43.9 [facility] Comment on above: Performed By: #### L 100.0100, L501.9520, L500.2500 #### [facility] [address] [place], [address] WBC (Bld) [#/Vol] 8.1 10*3/uL Normal 4.4-11.0 [facility] Comment on above: Performed By: #### L 100.0100, L501.9520, L500.2500 #### [facility] [address] [place], [address] [facility] ([id number]) 1950 F Date Time Provider Department 11/08/24 CHRISTEL SANCHES OBFAIHT During your visit today, we recorded the following information about you: Janelle Rivera LPN 11/08/2024 2:23 PM Signed Right diagnostic mammogram and right breast ultrasound results received from [facility]. Results scanned into chart and copy to provider to review. Christel Sanches APRN.CNP 11/08/2024 3:38 PM Signed Orders filed. Please faxed to [facility]. Christel Sanches APRN.Bing Weber RN 11/08/2024 3:44 PM Signed Order faxed to [facility]. Bing Kellogg RN Allergies As of Date: 11/08/2024 Noted Allergy Reaction AZITHROMYCIN 08/18/2002 2 - Rash Comments: z pack nausea ERYTHROMYCIN BASE 08/18/2002 Comments: nausea Date Reviewed: 08/05/2024 Reviewed by: Macy Wright MA - Fully Assessed Reason for Visit: Results [95] Primary Visit Diagnosis:Category 3 mammography result with short follow-up interval suggested for probably benign finding [R92.8] Order(s):US BREAST LTD RIGHT [[id number]] Order #: [id number] FUTURE BOB DIAGNOSTIC RIGHT [[id number]] Order #: [id number] FUTURE Prescriptions as of 11/08/2024 - LORazepam (ATIVAN) 0.5 mg 0.5 mg as needed. - ibuprofen (ADVIL ORAL) Take by mouth. - triamcinolone (KENALOG) 0.1 % lotion Apply to affected area as needed. - Estradiol (YUVAFEM) 10 mcg vaginal tablet Use 1 tablet vaginally two times a week. - omeprazole (PRILOSEC) 40 mg capsule - potassium chloride 20 mEq TbER - metFORMIN ER (GLUCOPHAGE XR) 500 mg 24 hr tablet Take 1,000 mg by mouth two times a day. - SYNTHROID 75 mcg tablet - hydroCHLOROthiazide 25 mg tablet - rosuvastatin (CRESTOR) 5 mg tablet Take 5 mg by mouth once daily. - aspirin, enteric coated (ASPIRIN, ENTERIC COATED) 81 mg EC tablet Take 81 mg by mouth once daily. - omega3/dha/epa/fish oil/vit D3 (OMEGA-3 PLUS VITAMIN D3 ORAL) Take by mouth. - clobetasol (TEMOVATE) 0.05 % cream Apply to affected area 1-3x/week for maintenance. - ATENOLOL 50 MG TAB Take 25 mg by mouth once daily. 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 [place], [place] [address] OFFICE VISIT Date of Service: 11/08/24 MR#: [id number] Acct: [id number] Name: GEMA ROMERO Rep #: [id number] : 1950 Provider: RUDY aparicio Age/Sex: 73/F Location: [facility] Status: Signed HPI HPI History of Present Illness Details: This is a 73-year-old white female who presents to the office today for a cardiovascular follow-up visit. She was seen previously for concerns of palpitations and findings of an abnormal event monitor raising concerns of a sinus pause. The patient states that she has been evaluated for concerns of palpitations and feelings of an increased heart rate with feelings of being jittery and somewhat dizzy . She was evaluated in her local emergency department on 08-30-2021. At that time her evaluation with respect to laboratory studies was reported as unremarkable. She had an ECG performed at that time that demonstrated sinus rhythm with no acute ECG changes. A chest x-ray was reported as no acute changes. She states she underwent evaluation with a transthoracic echocardiogram in 2009 during evaluation for CVA. According to a report from [facility] in [place], [place], she was evaluated for a CVA. There is a comment in the report that she had a transthoracic echocardiogram performed. Her LVEF was reported at 60 to 65%, the left atrium was normal, there was no PFO present. She believes that she underwent evaluation with a diagnostic cardiac catheterization in the past as well for chest pain. This was also performed at [facility] several years ago. To the best of her knowledge this was unremarkable as it did not lead to additional cardiac diagnostic studies or procedures at the time. She did have an event monitor. Reviewing the event monitor rhythm strips available it appears that she has underlying sinus rhythm with episodes of PACs/repetitive PACs and brief episodes of a slightly irregular narrow complex rhythm potentially compatible with an ectopic atrial rhythm, PVCs, and an approximate 3.6-second pause. The official recording states that her underlying rhythm was thought to be atrial fibrillation and there were no pauses present. The symptoms she reported with respect to skipped beats and heart racing sensations appeared to occur with sinus rhythm, sinus tachycardia, PVCs, and episode of the somewhat irregular narrow complex rhythm that lasted approximately 6 beats in duration, however, the episode appearing compatible with a sinus pause lasting approximately 3.6 seconds and the duration was auto recorded. This episode appeared to occur at approximately 4:30 PM. She states she may have been taking a nap during that time. From a cardiac standpoint, the patient is doing well. She does acknowledge faster heart rates over the last few weeks, and worsening. She states her heart rate has been in the 140's and 170's per her apple watch. She does acknowledge occasional fluttering sensation in her epigastric area. She denies chest pain, pressure or heaviness. She does have SOB with faster heart rates. She denies Orthopnea, and PND. She does not have bleeding issues; no blood in urine, stool, or nosebleeds. She does acknowledge occasional fatigue. She denies myalgias, or claudication. She does not have edema, or sudden weight gain. She denies lightheadedness, dizziness, syncopal or near syncopal episodes, and headaches. Intake Vital Signs 09/19/24 07:03 11/08/24 07:40 Height 5 ft 1 in 5 ft 1 in Weight: 162 lb BMI 30.6 BP 166/86 H Blood Pressure Location Lt brachial Position Sitting Respiration 18 Pulse 78 Pulse Source Monitor Pulse Oximetry (%) 96 Intake Visit Reasons: Tachycardia/See Clinical Note Pt Escort Required: No Is patient in pain?: No Allergies azithromycin (From Zithromax) Allergy (Unknown, Verified 11/08/24 16:17) Rash erythromycin base Allergy (Unknown, Verified 11/08/24 16:17) Rash and Hives Medications ???Medication ???Instructions ???Recorded ???Confirmed ???Type aspirin 81 mg tablet,delayed 81 mg PO DAILY 10/28/21 11/08/24 H istory release (Adult Low Dose Aspirin) coenzyme Q10 100 mg capsule 100 mg PO DAILY 10/28/21 11/08/24 History hydrochlorothiazide 25 mg tablet 25 mg PO DAILY 10/28/21 11/08/24 H istory ibuprofen 200 mg tablet (Advil) 200 mg PO Q6H PRN 10/28/21 5 History lorazepam 0.5 mg tablet 0.5 mg PO BID PRN 10/28/21 5 History lutein 20 mg capsule 20 mg PO DAILY 10/28/21 11/08/24 H istory omeprazole 40 mg capsule,delayed 40 mg PO DAILY 10/28/21 11/08/24 H istory release potassium chloride 20 mEq 20 meq PO BID 10/28/21 11/08/24 Hi story tablet,extended release atenolol 50 mg tablet 25 mg PO DAILY 10/29/21 11/08/24 H istory es (more content not included)... Normal [facility] Chloride assayOrdered By: Mj Welsh on 11-08-2024 Chloride [Moles/Vol] 102 mmol/L 98-108 [facility] Eosinophil percentageOrdered By: Nay Welsh on 11-08-2024 Eosinophils/100 WBC (Bld) 4.1 % 0-5 [facility] Erythrocyte distribution wid th ratioOrdered By: Nay Welsh on 11-08-2024 Erythrocyte distribution width (RBC) [Ratio] 17.0 % High 11.6-14.6 [facility] Erythrocyte distribution wid th standard deviationOrdered By: Nay Welsh on 11-08-2024 Erythrocyte distribution width (RBC) [Ratio] 45.3 fl High 35.1-43.9 [facility] Glomerular filtration rate ( GFR) estimation/1.73 sq m using serum, plasma, or whole bOrdered By: Nay Welsh on 11-08-2024 GFR/1.73 sq M.predicted among non-blacks MDRD (S/P/Bld) [Vol rate/Area] 80 mL/min/{1.73_m2} >60 [facility] Comment on above: mL/min/1.73m2 CKD-EP I Creatinine Equation (2020) Hematocrit Auto (Bld) [Volum e fraction]Ordered By: Nay Welsh on 11-08-2024 Hematocrit (Bld) [Volume fraction] 34.5 % Low 37-47 [facility] Hemoglobin measurementOrdere d By: Nay Welsh on 11-08-2024 Hemoglobin (Bld) [Mass/Vol] 10.4 g/dL Low 12.0-15.0 [facility] Immature granulocytes/100 WB C Auto (Bld)Ordered By: Nay Welsh on 11-08-2024 Immature granulocytes/100 WBC (Bld) 0.400 % 0.0-0.9 [facility] Comment on above: IG% - Immature Granu locytes (promyelocytes, myelocytes and metamyelocytes) > 1% indicates that a LEFT SHIFT is Present. MCV (mean corpuscular volume ) determinationOrdered By: Nay Welsh on 11-08-2024 MCV (RBC) [Entitic vol] 75.2 fL Low 81-99 [facility] Mean corpuscular hemoglobin (MCH) determinationOrdered By: Nay Welsh on 11-08-2024 MCH (RBC) [Entitic mass] 22.7 pg Low 27.0-32.0 [facility] Mean corpuscular hemoglobin concentration (MCHC) determinationOrdered By: Nay Welsh on 11-08-2024 MCHC (RBC) [Mass/Vol] 30.1 g/dL Low 32-36 [facility] Mean platelet volume determi nationOrdered By: Nay Welsh on 11-08-2024 Platelet mean volume (Bld) [Entitic vol] 10.6 fL 6.2-12.0 [facility] Monocyte percentageOrdered B y: Nay Welsh on 11-08-2024 Monocytes/100 WBC (Bld) 7.7 % 0-10 [facility] Neutrophil percentageOrdered By: Nay Welsh on 11-08-2024 Neutrophils/100 WBC (Bld) 61.3 % 47-70 [facility] Nucleated red blood cell per centageOrdered By: Nay Welsh on 11-08-2024 Nucleated RBC/100 WBC (Bld) [Ratio] 0 % 0-5 [facility] Platelet countOrdered By: Mj Welsh on 11-08-2024 Platelets (Bld) [#/Vol] 348 10*3/uL 150-450 [facility] Potassium measurement (mass/ volume)Ordered By: Nay Welsh on 11-08-2024 Potassium (Unsp spec) [Mass/Vol] 3.7 mmol/L 3.3-5.1 [facility] RBC Auto (Bld) [#/Vol]Ordere d By: Nay Welsh on 11-08-2024 RBC (Bld) [#/Vol] 4.59 10*6/uL 4.2-5.4 [facility] Serum creatinine measurement (mass/volume)Ordered By: Nay Welsh on 11-08-2024 Creatinine [Mass/Vol] 0.79 mg/dL 0.70-1.20 [facility] Serum glucose measurement (m ass/volume)Ordered By: Nay Welsh on 11-08-2024 Glucose [Mass/Vol] 140 mg/dL High 70-99 [facility] Serum or plasma calcium nir urement (mass/volume)Ordered By: Nay Welsh on 11-08-2024 Calcium [Mass/Vol] 9.6 mg/dL 7.6-11.0 [facility] Serum or plasma urea nitroge n measurement (mass/volume)Ordered By: Nay Welsh on 11-08-2024 Urea nitrogen [Mass/Vol] 16 mg/dL 4-19 [facility] Sodium levelOrdered By: Tawny Welsh on 11-08-2024 Sodium [Moles/Vol] 140 mmol/L 133-145 [facility] TSH DL <= 0.005 mIU/L QnOrde red By: Nay Welsh on 11-08-2024 TSH Qn 1.490 uIU/mL 0.300-4.200 [facility] Thyroid Stim Hormone (TSH)on 11-08-2024 TSH 1.490 uIU/mL Normal 0.300-4.200 [facility] Comment on above: Performed By: #### L 100.0100, L501.9520, L500.2500 #### [facility] [address] [place], [address] US BREAST RT UNILATERAL COMP LETEon 11-08-2024 US BREAST RT UNILATERAL [facility] [address] [place], [place] [address] Patient: GEMA ROMERO Phone#: : 1950 Age: 73 Gender: F Pt. Type: Out Account: [id number] Location: [facility] Ordering: CHRISTEL SANCHES Exam Date: 11/08/2024/10:28 Family Phys: POLY SUTHERLAND Charge Code: [id number] Physician: [place] Order #: [id number] Dose#: PROCEDURE: ULTRASOUND BREAST RT COMPARISON: None. INDICATIONS: Follow up mamm TECHNIQUE: Breast ultrasound was performed, with evaluation focusing on all four quadrants. FINDINGS: DIAGNOSTIC CATEGORY 3--PROBABLY BENIGN: FINDING(S) HAS A HIGH PROBABILITY OF A BENIGN; RIGHT BREAST: Non-specific dilated subareolar ducts with no visible mass. No significant suspicious finding. RECOMMENDATIONS: SHORT TERM FOLLOW-UP DIAGNOSTIC MAMMOGRAM RIGHT BREAST IN 6 MONTHS to follow-up calcifications seen on diagnostic mammogram. PLEASE NOTE: A NORMAL MAMMOGRAM DOES NOT EXCLUDE THE POSSIBILITY OF BREAST CANCER. A CLINICALLY SUSPICIOUS PALPABLE LUMP SHOULD BE BIOPSIED. Dictated by: Vee Huynh MD on 11/08/2024 at 12:58 Approved by: Vee Huynh MD on 11/08/2024 at 13:00 Normal [facility] White blood cell (WBC) count Ordered By: Nay Welsh on 11-08-2024 WBC (Bld) [#/Vol] 8.1 10*3/uL 4.4-11.0 [facility] T4-FREE (FREE THYROXINE)on 0 10-11-2024 Free T4 [Mass/Vol] 1.48 ng/dL High 0.76 - 1.46 [facility] Comment on above: Result Comment: P otential of falsely elevated results when biotin concentrations are > 10 ng/mL. Performed By: #### 2 96193 #### [facility],[address] [place] [address] TSHon 10-11-2024 TSH Qn 2.97 m[IU]/L Normal 0.35 - 3.74 [facility] Comment on above: Performed By: #### 2 95929 ####[facility],[address] [place] [address] CNPNon 09-27-2024 CNPN Telephone (OBGWSR) GEMA ROMERO ([id number]) 1950 F Date Time Provider Department 09/27/24 CHRISTEL SANCHES During your visit today, we recorded the following information about you: Lucrecia Lucero 09/27/2024 2:59 PM Signed Patient calling to report that she was advised to have repeat diagnostic mammogram performed six months later around 11/03/24). Please submit necessary order then fax to [facility] at [phone]. Please notify patient when order has been faxed so she may follow up with [facility] schedulers. Ghislaine Monahan RN 09/27/2024 3:18 PM Signed Radiology order form to to sign. Click on link below to view last [facility] mammogram result. Ghislaine Monahan RN View External Imaging - Mammography [ID [id number]] Ghislaine Monahan RN 09/27/2024 3:26 PM Signed Order signed by and faxed to [facility]. Left detailed message on identified voicemail that order was faxed to [place]. Ghislaine Monahan RN Allergies As of Date: 09/27/2024 Noted Allergy Reaction AZITHROMYCIN 08/18/2002 2 - Rash Comments: z pack nausea ERYTHROMYCIN BASE 08/18/2002 Comments: nausea Date Reviewed: 08/05/2024 Reviewed by: Macy Wright MA - Fully Assessed Reason for Visit: Orders [681] Cmt: Repeat Diagnostic Mammogram Prescriptions as of 09/27/2024 - LORazepam (ATIVAN) 0.5 mg 0.5 mg as needed. - ibuprofen (ADVIL ORAL) Take by mouth. - triamcinolone (KENALOG) 0.1 % lotion Apply to affected area as needed. - Estradiol (YUVAFEM) 10 mcg vaginal tablet Use 1 tablet vaginally two times a week. - omeprazole (PRILOSEC) 40 mg capsule - potassium chloride 20 mEq TbER - metFORMIN ER (GLUCOPHAGE XR) 500 mg 24 hr tablet Take 1,000 mg by mouth two times a day. - SYNTHROID 75 mcg tablet - hydroCHLOROthiazide 25 mg tablet - rosuvastatin (CRESTOR) 5 mg tablet Take 5 mg by mouth once daily. - aspirin, enteric coated (ASPIRIN, ENTERIC COATED) 81 mg EC tablet Take 81 mg by mouth once daily. - omega3/dha/epa/fish oil/vit D3 (OMEGA-3 PLUS VITAMIN D3 ORAL) Take by mouth. - clobetasol (TEMOVATE) 0.05 % cream Apply to affected area 1-3x/week for maintenance. - ATENOLOL 50 MG TAB Take 25 mg by mouth once daily. 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 [place] [address] OFFICE VISIT Date of Service: 09/19/24 MR#: [id number] Acct: [id number] Name: GEMA ROMERO Rep #: [id number] : 1950 Provider: RUDY aparicio Age/Sex: 73/F Location: [facility] Status: Signed HPI HPI History of Present Illness Details: This is a 73-year-old white female who presents to the office today for a cardiovascular follow-up visit. She was seen previously for concerns of palpitations and findings of an abnormal event monitor raising concerns of a sinus pause. The patient states that she has been evaluated for concerns of palpitations and feelings of an increased heart rate with feelings of being jittery and somewhat dizzy . She was evaluated in her local emergency department on 08-30-2021. At that time her evaluation with respect to laboratory studies was reported as unremarkable. She had an ECG performed at that time that demonstrated sinus rhythm with no acute ECG changes. A chest x-ray was reported as no acute changes. She states she underwent evaluation with a transthoracic echocardiogram in 2009 during evaluation for CVA. According to a report from [facility] in [place], [place], she was evaluated for a CVA. There is a comment in the report that she had a transthoracic echocardiogram performed. Her LVEF was reported at 60 to 65%, the left atrium was normal, there was no PFO present. She believes that she underwent evaluation with a diagnostic cardiac catheterization in the past as well for chest pain. This was also performed at [facility] several years ago. To the best of her knowledge this was unremarkable as it did not lead to additional cardiac diagnostic studies or procedures at the time. She did have an event monitor. Reviewing the event monitor rhythm strips available it appears that she has underlying sinus rhythm with episodes of PACs/repetitive PACs and brief episodes of a slightly irregular narrow complex rhythm potentially compatible with an ectopic atrial rhythm, PVCs, and an approximate 3.6-second pause. The official recording states that her underlying rhythm was thought to be atrial fibrillation and there were no pauses present. The symptoms she reported with respect to skipped beats and heart racing sensations appeared to occur with sinus rhythm, sinus tachycardia, PVCs, and episode of the somewhat irregular narrow complex rhythm that lasted approximately 6 beats in duration, however, the episode appearing compatible with a sinus pause lasting approximately 3.6 seconds and the duration was auto recorded. This episode appeared to occur at approximately 4:30 PM. She states she may have been taking a nap during that time. From a cardiac standpoint, the patient is doing well. She does have occasional palpitations. She describes this as a fast heart beat. She states this usually occurs with exertion. She denies chest pain, pressure or heaviness. She does have occasional SOB with exertion-this is nothing new or worsening. She denies Orthopnea, and PND. She does not have bleeding issues; no blood in urine, stool, or nosebleeds. She denies any decrease in energy level, myalgias, or claudication. She does not have edema, or sudden weight gain. She denies lightheadedness, dizziness, syncopal or near syncopal episodes, and headaches. Intake Vital Signs 11/30/23 15:13 09/19/24 07:03 Height 5 ft 1 in 5 ft 1 in Weight: 164 lb BMI 30.9 BP 129/81 H Blood Pressure Location Lt brachial Position Sitting Respiration 18 Pulse 83 Pulse Source Monitor Pulse Oximetry (%) 92 Intake Visit Reasons: 9 M Pt Escort Required: No Is patient in pain?: No Allergies azithromycin (From Zithromax) Allergy (Unknown, Verified 09/19/24 15:07) Rash erythromycin base Allergy (Unknown, Verified 09/19/24 15:07) Rash and Hives Medications ???Medication ???Instructions ???Recorded ???Confirmed ???Type aspirin 81 mg tablet,delayed 81 mg PO DAILY 10/28/21 09/19/24 H istory release (Adult Low Dose Aspirin) cholecalciferol (vitamin D3) 25 25 mcg PO DAILY 10/28/21 09/19/24 History mcg (1,000 unit) tablet coenzyme Q10 100 mg capsule 100 mg PO DAILY 07/11/22 06/02/25 History hydrochlorothiazide 25 mg tablet 25 mg PO DAILY 10/28/21 09/19/24 H istory ibuprofen 200 mg tablet (Advil) 200 mg PO Q6H PRN 10/28/21 5 History lorazepam 0.5 mg tablet 0.5 mg PO BID PRN 10/28/21 5 History lutein 20 mg capsule 20 mg PO DAILY 10/28/21 09/19/24 H istory metformin 500 mg tablet 500 mg PO BID 10/28/21 09/19/24 Hi story omeprazole 40 mg capsule,delayed 40 mg PO DAILY 10/28/21 09/19/24 H istory release potassium chloride 20 mEq 20 meq PO BID 10/28/21 09/19/24 Hi story tablet,extended release ateno (more content not included)... Normal [facility] CBC + DIFFon 08-19-2024 BANDS 1 % Normal 0 - 5 [facility] Comment on above: Performed By: #### 2 17449 ####[place] [address] Baso # 0.02 x10EE3/UL Normal 0.00 - 0.10 [facility] Comment on above: Performed By: #### 2 66464 ####[place] [address] Basophils/100 WBC (Bld) 0.3 % Normal 0.0 - 2.0 [facility] Comment on above: Performed By: #### 2 74950 ####[place] [address] CBC + DIFF Normal [facility] Comment on above: Result Comment: CBC- COMPLETE BLOOD COUNT Performed By: #### 2 80414 ####[place] [address] CELL COUNT 100 Normal [facility] Comment on above: Performed By: #### 2 44710 ####[place] [address] EO 3.0 % Normal 0.0 - 7.0 [facility] Comment on above: Performed By: #### 2 98448 ####[place] [address] EO # 0.28 x10EE3/UL Normal 0.00 - 0.50 [facility] Comment on above: Performed By: #### 2 98907 ####[place] [address] Eosinophils/100 WBC (Bld) 4.3 % Normal 0.0 - 7.0 [facility] Comment on above: Performed By: #### 2 30509 ####[place] [address] Erythrocyte distribution width (RBC) [Ratio] 16.6 % High 12.0 - 15.6 [facility] Comment on above: Performed By: #### 2 16493 ####[place] [address] Hematocrit (Bld) [Volume fraction] 32.7 % Low 34.0 - 46.0 [facility] Comment on above: Performed By: #### 2 37856 ####[place] [address] Hemoglobin (Bld) [Mass/Vol] 11.1 g/dL Low 12.0 - 16.0 [facility] Comment on above: Performed By: #### 2 21918 ####[facility],[address] [place], [place] [address] Lymph # 1.96 x10EE3/UL Normal 0.80 - 2.80 [facility] Comment on above: Performed By: #### 2 77797 ####[place] [id number] Lymphocytes/100 WBC (Bld) 30.0 % Normal 20.0 - 45.0 [facility] Comment on above: Performed By: #### 2 32659 ####[facility],[address] [place] [address] Lymphocytes/100 WBC (Bld) 30 % Normal 20 - 45 [facility] Comment on above: Performed By: #### 2 91788 ####[facility],[address] [place] [address] MANUAL DIFF SEE BELOW Normal [facility] Comment on above: Performed By: #### 2 87994 ####[facility],[address] [place] [address] MCH (RBC) [Entitic mass] 25 pg Low 27 - 33 [facility] Comment on above: Performed By: #### 2 42389 ####[facility],[address] [place] [address] MCHC 34 X10 3 Normal 32 - 36 [facility] Comment on above: Performed By: #### 2 44678 ####[facility],[address] [place] [address] MCV (RBC) [Entitic vol] 72 fL Low 80 - 99 [facility] Comment on above: Performed By: #### 2 72018 ####[facility],[address] [place] [address] MICROCYTES 1+ Normal [facility] Comment on above: Performed By: #### 2 43421 ####[facility],[address] [place] [address] [place] # 0.46 x10EE3/UL Normal 0.20 - 1.00 [facility] Comment on above: Performed By: #### 2 68289 ####[facility],[address] [place] [address] MONOS 7 % Normal 0 - 10 [facility] Comment on above: Performed By: #### 2 90692 ####[facility],[address] [place] [address] MONOS % 7.0 % Normal 0.0 - 10.0 [facility] Comment on above: Performed By: #### 2 62792 ####[facility],[address] [place] [address] 51774 Morphology Aniket (Bld) [Interp] SEE BELOW Normal [facility] Comment on above: Performed By: #### 2 77910 ####[facility],[address] [place] [address] 23994 Neut # 3.81 x10EE3/UL Normal 1.50 - 7.10 [facility] Comment on above: Performed By: #### 2 78008 ####[facility],[address] [place] [address] 44566 Neutrophils/100 WBC (Bld) 58.4 % Normal 46.0 - 76.0 [facility] Comment on above: Performed By: #### 2 45342 ####[facility],[address] [place] [address] 97301 PLATELET 334 x10EE3/UL Normal 150 - 450 [facility] Comment on above: Performed By: #### 2 81286 ####[facility],[address] [place] [address] 87102 Platelet mean volume (Bld) [Entitic vol] 9.2 fL Normal 6.6 - 10.5 [facility] Comment on above: Result Comment: AUTO MATED DIFFERENTIAL Performed By: #### 2 19716 ####[facility],[address] [place] [address] 48143 RBC 4.53 x 10EE6/UL Normal 4.10 - 5.30 [facility] Comment on above: Performed By: #### 2 53195 ####[facility],[address] [place] [address] 90718 SEGS 59 % Normal 46 - 76 [facility] Comment on above: Performed By: #### 2 73552 ####[facility],[address] [place] [address] 63814 WBC 6.5 x 10EE3/UL Normal 4.5 - 10.8 [facility] Comment on above: Performed By: #### 2 89446 ####[facility],[address] [place] [address] 31050 CMP with eGFRon 08-19-2024 AGE 73 years Normal [facility] Comment on above: Performed By: #### 2 13756 ####[facility],[address] [place] [address] 39212 Albumin [Mass/Vol] 3.4 g/dL Normal 3.4 - 5.0 [facility] Comment on above: Performed By: #### 2 56036 ####[facility],[address] [place] [address] 06691 Albumin/Globulin [Mass ratio] 0.8 {ratio} Low 0.9 - 1.6 [facility] Comment on above: Performed By: #### 2 25880 ####[facility],[address] [place] [address] 73039 ALK PHOS 68 U/L Normal 46 - 116 [facility] Comment on above: Performed By: #### 2 36132 ####[facility],[address] [place] [address] 76472 ALT [Catalytic activity/Vol] 21 U/L Normal 16 - 63 [facility] Comment on above: Performed By: #### 2 63709 ####[facility],[address] [place] [address] 07344 Anion gap [Moles/Vol] 13 mmol/L Normal 10 - 20 [facility] Comment on above: Performed By: #### 2 23371 ####[facility],[address] [place] [address] 74922 AST [Catalytic activity/Vol] 18 U/L Normal 13 - 39 [facility] Comment on above: Performed By: #### 2 20203 ####[facility],[address] [place] [address] 02318 B/C RATIO 25 ratio Normal 0 - 30 [facility] Comment on above: Performed By: #### 2 05065 ####[facility],[address] [place] [address] 86131 Bilirubin [Mass/Vol] 0.5 mg/dL Normal 0.2 - 1.0 [facility] Comment on above: Performed By: #### 2 83406 ####[facility],[address] [place] [address] 57372 Calcium [Mass/Vol] 9.1 mg/dL Normal 8.5 - 10.1 [facility] Comment on above: Performed By: #### 2 72986 ####[facility],[address] [place] [address] 68486 Chloride [Moles/Vol] 102 mmol/L Normal 98 - 107 [facility] Comment on above: Performed By: #### 2 90739 ####[facility],[address] [place] [address] 63323 CMP with eGFR Normal [facility] Comment on above: Result Comment: COMP REHENSIVE METABOLIC PANEL Performed By: #### 2 61649 ####[facility],[address] [place] [address] 26425 CO2 [Moles/Vol] 29.6 mmol/L Normal 21.0 - 32.0 [facility] Comment on above: Performed By: #### 2 31682 ####[facility],[address] [place] [address] 76339 Creatinine [Mass/Vol] 0.85 mg/dL Normal 0.55 - 1.02 [facility] Comment on above: Performed By: #### 2 22309 ####[facility],[address] [place] [address] 07906 GFR/1.73 sq M.predicted among non-blacks MDRD (S/P/Bld) [Vol rate/Area] mL/min/{1.73_m2} Normal 60 - 999 [facility] Comment on above: Performed By: #### 2 52066 ####[facility],[address] [place] [address] 56126 Result Comment: ACCO RDING TO THE NATIONAL KIDNEY DISEASE EDUCATION PROGRAM(NKDE), A NORMAL eGFR IS A VALUE GREATER THAN OR EQUAL TO 60 ML/MIN/1.73 SQ METERS. CHRONIC KIDNEY DISEASE: <60mL/MIN/1.73 SQ METERS KIDNEY FAILURE: <15mL/MIN/1.73 SQ METERS THIS TEST SHOULD ONLY BE USED FOR PATIENTS 18 YEARS OF AGE AND OLDER. Globulin (S) [Mass/Vol] 4.1 g/dL High 1.5 - 3.8 [facility] Comment on above: Performed By: #### 2 23986 ####[address] [address] Glucose [Mass/Vol] 99 mg/dL Normal 74 - 106 [facility] Comment on above: Performed By: #### 2 86571 ####[address] [address] Potassium [Moles/Vol] 3.7 mmol/L Normal 3.5 - 5.1 [facility] Comment on above: Performed By: #### 2 88977 ####[facility],[address] [place] [address] 82503 Protein [Mass/Vol] 7.5 g/dL Normal 6.4 - 8.2 [facility] Comment on above: Performed By: #### 2 07269 ####[facility],[address] [place] [address] 30747 Sodium [Moles/Vol] 141 mmol/L Normal 136 - 145 [facility] Comment on above: Performed By: #### 2 28696 ####[facility],[address] [place] [address] 96953 Urea nitrogen [Mass/Vol] 21 mg/dL High 7 - 18 [facility] Comment on above: Performed By: #### 2 13859 ####[address] [address] HEMOGLOBIN A1C (POM)on 08-19 Glucose [Mass/Vol] 148.5 mg/dL High 0.0 - 0.0 [facility] Comment on above: Result Comment: BLDo HEMOGLOBIN A1C REFERENCE RANGESBLDo Suggested Diagnosis HbA1c(%) HbA1C (mmol/mol Diabetic >/=6.5 >/=48 Prediabetes 5.7 - 6.4 39 - 47 Normal <5.7 <39 Performed By: #### 2 16867 ####[facility],[address] [place] [address] 41717 HbA1c (Bld) [Mass fraction] 6.8 % High 0.0 - 6.5 [facility] Comment on above: Performed By: #### 2 43489 ####[facility],[address] [place] [address] 64415 LIPID PROFILEon 08-19-2024 Cholesterol [Mass/Vol] 220 mg/dL Normal 0 - 240 [facility] Comment on above: Performed By: #### 2 91961 #### [facility],[address] [place] [address] 83348 Cholesterol in HDL [Mass/Vol] 57 mg/dL Normal 40 - 60 [facility] Comment on above: Performed By: #### 2 57169 #### [facility],[address] [place] [address] 17529 Cholesterol in LDL [Mass/Vol] 128 mg/dL Normal 0 - 129 [facility] Comment on above: Performed By: #### 2 80306 #### [facility],[address] [place] [address] 84916 Cholesterol.total/Chol esterol in HDL [Mass ratio] 3.9 {ratio} Normal 0.0 - 5.0 [facility] Comment on above: Performed By: #### 2 91576 #### [facility],[address] [place] [address] 63532 Lipid 1996 panel Normal [facility] Comment on above: Result Comment: LIPI D PROFILE Performed By: #### 2 85005 #### [facility],[address] [place], [place] [address] Triglyceride [Mass/Vol] 173 mg/dL High 0 - 150 [facility] Comment on above: Performed By: #### 2 38169 #### [facility],[address] [place], [place] [address] T4-FREE (FREE THYROXINE)on 0 08-19-2024 Free T4 [Mass/Vol] 1.28 ng/dL Normal 0.76 - 1.46 [facility] Comment on above: Result Comment: P otential of falsely elevated results when biotin concentrations are > 10 ng/mL. Performed By: #### 2 98751 #### [facility],[address] [place] [address] TSHon 08-19-2024 TSH Qn 4.37 m[IU]/L High 0.35 - 3.74 [facility] Comment on above: Performed By: #### 2 20478 ####[facility],[address] [place] [address] URINALYSISon 08-19-2024 Amorphous 2+ Normal [facility] Comment on above: Performed By: #### 2 09882 #### [facility],[address] [place] [address] Bacteria 1+ Normal [facility] Comment on above: Performed By: #### 2 10903 #### [facility],[address] [place], [place] [address] Bilirubin Ql (U) Negative Normal NORMAL: NEGATIVE [facility] Comment on above: Performed By: #### 2 84146 #### [facility],[address] [place] [address] Casts NONE Normal [facility] Comment on above: Performed By: #### 2 77108 #### [facility],[address] [place] [address] 23034 Clarity (U) very cloudy Normal NORMAL: CLEAR [facility] Comment on above: Performed By: #### 2 09505 #### [facility],[address] [place] [address] 35096 Color (U) yellow Normal NORMAL: YELLOW [facility] Comment on above: Performed By: #### 2 19286 #### [facility],[address] [place] [address] 73969 Crystals LM Nom (Urine sed) NONE Normal [facility] Comment on above: Performed By: #### 2 25801 #### [facility],[address] [place] [address] 94099 Epi Cells OCC Normal [facility] Comment on above: Performed By: #### 2 52006 #### [facility],[address] [place], [place] [address] Glucose Ql (U) NORM Normal NORMAL: NORMAL [facility] Comment on above: Performed By: #### 2 83882 #### [facility],[address] [place] [address] 04347 Hemoglobin Ql (U) Negative Normal NORMAL: NEGATIVE [facility] Comment on above: Performed By: #### 2 13704 #### [facility],[address] [place] [address] 53248 Ketone Negative Normal NORMAL: NEGATIVE [facility] Comment on above: Performed By: #### 2 26098 #### [facility],[address] [place] [address] 86021 Leukocytes 100 Abnormal NORMAL: NEGATIVE [facility] Comment on above: Performed By: #### 2 17097 #### [facility],[address] [place] [address] 85793 Mucous NONE Normal [facility] Comment on above: Performed By: #### 2 79974 #### [facility],[address] [place] [address] 83843 Nitrite Ql (U) Negative Normal NORMAL: NEGATIVE [facility] Comment on above: Performed By: #### 2 10710 #### [facility],[address] [place] [address] pH (U) 6 [pH] Normal NORMAL: 5.0-8.0 [facility] Comment on above: Performed By: #### 2 03042 #### [facility],[address] [place] [address] Protein Ql (U) 15 Abnormal NORMAL: NEGATIVE [facility] Comment on above: Performed By: #### 2 06349 #### [facility],[address] [place] [address] Rbc NONE Normal 0-3/hpf [facility] Comment on above: Performed By: #### 2 09841 #### [facility],[address] [place] [address] Sp Fine 1.025 Normal NORMAL: 1.010-1.030 [facility] Comment on above: Performed By: #### 2 62677 #### [facility],[address] [place] [address] Specimen Type R Normal [facility] Comment on above: Performed By: #### 2 28686 #### [facility],[address] [place] [address] Urinalysis dipstick W Reflex Microscopic panel (U) SEE BELOW Normal [facility] Comment on above: Result Comment: MICR OSCOPIC Performed By: #### 2 05913 #### [facility],[address] [place] [address] Urobilinog NORM Normal NORMAL: NORMAL [facility] Comment on above: Performed By: #### 2 [id number] #### [facility],[address] [place] [address] Wbc 1-5 Normal 0-5/hpf [facility] Comment on above: Performed By: #### 2 [id number] #### [facility],[address] [place] [address] Yeast NONE Normal [facility] Comment on above: Performed By: #### 2 [id number] #### [facility],[address] [place] [address] 38084 URINE MICROALBUMIN W/CREATIN INE, RANDOMon 08-19-2024 CREATININE UR 167.98 mg/dl Normal [facility] Comment on above: Performed By: #### 2 [id number] #### [facility],[address] [place] [address] 33675 MICROALBUMIN UR 4.6 mg/dL Normal 0.1 - 11.6 [facility] Comment on above: Performed By: #### 2 [id number] #### [facility],[address] [place] [address] 02688 UACR 27 mg/g Normal [facility] Comment on above: Performed By: #### 2 [id number] #### [facility],[address] [place] [address] 67057 VITAMIN D, 25 HYDROXYon VitD 57.90 ng/mL Normal 30.00 - 100 [facility] Comment on above: Result Comment: 25-O HD3 indicates both endogenous production and supplementation. 25-OHD2 is an indicator of exogenous sources, such as diet or supplementation. Therapy is based on measurement of Total 25-OHD, with levels <20 ng/mL indicative of Vitamin D deficiency, while levels between 20 ng/mL and 30 ng/mL suggest insufficiency. Optimal levels are >=30ng/mL. Vitamin D, 25-OH D3 Not Established Vitamin D, 25-OH D2 Not Established Performed By: #### 2 [id number] ####[facility],[address] [place] [address] 32827 BACTERIAL VAGINOSIS NAATon 0 08-05-2024 Lactobacillus crispatus+gasseri+estuardo enii + Gardnerella vaginalis + Atopobium vaginae rRNA LACI+probe Ql (Vag fld) Detected Abnormal Not detected [facility] Comment on above: Order Comment: Speci men Type: SWABOrdering Facility: [facility] Address: [address] [place], [place] [address] [address] Performed By: #### B VAMP, CVTV ####[facility] [id number] [place] [address] [place] CINDY/TRICHOMONAS NAATon 0 08-05-2024 C. glabrata RNA LACI+probe Ql (Vag fld) Not detected Normal Not detected [facility] Comment on above: Order Comment: Speci men Type: SWABOrdering Facility: [facility] Address: [address] [place] [address] Performed By: #### Bertin VAMP, CVTV ####[facility] LABIA [id number] [place] [address] [place] Cindy sp DNA LACI+probe Ql (Vag fld) Not detected Normal Not detected [facility] Comment on above: Order Comment: Speci men Type: SWABOrdering Facility: [facility] Address: [address] [place] [address] Result Comment: The Cindy species group target includes C. albicans, C. tropicalis, C. parapsilosis, and C. dubliniensis. Performed By: #### Bertin VAMP, CVTV ####[facility] [id number] [address] [place] T. vaginalis DNA LACI+probe Ql (Unsp spec) Not detected Normal Not detected [facility] Comment on above: Order Comment: Speci men Type: SWABOrdering Facility: [facility] Address: [address] [place] [address] Performed By: #### Bertin VAMP, CVTV ####[facility] [id number] [place] [address] [place] CNOVon 08-05-2024 CNOV Office Visit (OBGYWM ) GEMA ROMERO ([id number]) 1950 F Date Time Provider Department 08/05/24 8:00 AM CHRISTEL SANCHES OBGYWJayne During your visit today, we recorded the following information about you: Blood pressure Weight 126/78 73.5 kg Christel Sanches APRN.CNP 08/05/2024 8:24 AM Signed Gema Romero is a 73 year old female who presents for vaginal pruritis for several week(s). Vaginal discharge: none. Itching: YES Dyspareunia: N/A Fever/chills: No Abdominal pain: No Bladder: Negative for dysuria or frequency Bowel: No blood in stool, pain with BM, tarry stool, persistent diarrhea or constipation Are you currently taking any medications to treat vaginitis: No Do you use feminine sprays, douches or deodorants: No Past medical, surgical, social history, medications and allergies reviewed and updated. OBJECTIVE: SENSITIVE EXAM: The sensitive examination was discussed with the Patient or Patient's Authorized Table Games Supervisor. As applicable, any other physician, advance practice provider, medical student, or other health professional student that will be observing or involved in the sensitive examination for educational or training purposes was discussed with the Patient or Authorized Table Games Supervisor. The Patient or Authorized Table Games Supervisor has agreed to proceed with the sensitive examination. (Sensitive examination includes inspection and/or palpation of the breasts, pelvis, prostate and anorectal regions). BP 126/78 Wt 162 lb (73.5kg) GENERAL: Well developed, well nourished in no apparent distress PELVIC: external genitalia normal, normal Bartholin's glands, urethra, Smyr[place]'s glands, no vulvar lesions, physiologic discharge present, normal appearing perineal body and perianal region ASSESSMENT/PLAN: 1. Vaginal itching - ICD9: 698.1, ICD10: N89.8 Will notify patient of test results. - CINDY/TRICHOMONAS NAAT - BACTERIAL VAGINOSIS NAAT If BV+ want metrogel Clobetasol 2x/day x 2 wks, then 3x/wk, if irritation is not resolving will try estrace cream externally Christel Sanches APRN.CNP Medical Decision Making: Problems: Low: Acute, uncomplicated illness or injury Data: Unique test(s) ordered: 2 Risk: Moderate: Drug management Medical Decision Making Level: 3 - Low Allergies As of Date: 08/05/2024 Noted Allergy Reaction AZITHROMYCIN 08/18/2002 2 - Rash Comments: z pack nausea ERYTHROMYCIN BASE 08/18/2002 Comments: nausea Date Reviewed: 08/05/2024 Reviewed by: Macy Wright MA - Fully Assessed Reason for Visit: Vaginal Problem [117] Primary Visit Diagnosis:Vaginal itching [N89.8] Order(s):CINDY/TRIC HOMONAS NAAT [SQCVTV] Order #: [id number] BACTERIAL VAGINOSIS NAAT [SQBVAMP] Order #: [id number] Prescriptions as of 08/05/2024 - LORazepam (ATIVAN) 0.5 mg 0.5 mg as needed. - ibuprofen (ADVIL ORAL) Take by mouth. - triamcinolone (KENALOG) 0.1 % lotion Apply to affected area as needed. - Estradiol (YUVAFEM) 10 mcg vaginal tablet Use 1 tablet vaginally two times a week. - omeprazole (PRILOSEC) 40 mg capsule - potassium chloride 20 mEq TbER - metFORMIN ER (GLUCOPHAGE XR) 500 mg 24 hr tablet Take 1,000 mg by mouth two times a day. - SYNTHROID 75 mcg tablet - hydroCHLOROthiazide 25 mg tablet - rosuvastatin (CRESTOR) 5 mg tablet Take 5 mg by mouth once daily. - aspirin, enteric coated (ASPIRIN, ENTERIC COATED) 81 mg EC tablet Take 81 mg by mouth once daily. - omega3/dha/epa/fish oil/vit D3 (OMEGA-3 PLUS VITAMIN D3 ORAL) Take by mouth. - clobetasol (TEMOVATE) 0.05 % cream Apply to affected area 1-3x/week for maintenance. - ATENOLOL 50 MG TAB Take 25 mg by mouth once daily. 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 Pathology Reports Accession: Collected Date/Time: Received Date/Time: Pathologist: [id number] 07/11/2024 10:50 EDT 07/11/2024 12:30 EDT HAMIDA MAN MD Non-Web Operations Administrator Cytology Report CLINICAL INFORMATION: right thyroid nodule DIAGNOSTIC CATEGORY: BENIGN. Consistent with chronic lymphocytic (Brenden) thyroiditis. SPECIMEN: Thyroid FNA, RML GROSS DESCRIPTION: # of Monolayers: 1 # of spray fixed Smears: 2 # of air dried smears :2 Volume (ml) 30 Color: fixed clear pink needle rinse in CytoLyt Afirma sample collected for reflex testing SUGGESTION/EDUCATIONA L NOTES: This specimen was evaluated using criteria described in The [employer] System for Reporting Thyroid Cytopathology, Second Edition (2018). The following risk of malignancy rates are estimates based on published studies and includes data extrapolation. Individual institutions may have different rates. Actual management may depend on other factors (e.g., clinical. Sonographic) besides the FNA interpretation. Diagnostic Category Risk of Usual management malignancy (%) Non diagnostic or Unsatisfactory 5-10 Repeat FNA with US guidance Benign 0-3 Clinical and US follow up Atypia of Undetermined 10-30 Repeat FNA, molecular Significance testing or lobectomy Follicular neoplasm or Suspicious 25-40 Molecular testing, for follicular neoplasm lobectomy Suspicious for Malignancy 50-75 Near-total thyroidectomy or lobectomy Malignant 97-99 Near-total thyroidectomy or lobectomy Verified by Pathology Report verified by [facility] Screened by: TC MURILLO Electronically signed by HAMIDA MAN Sign-Out Date: 07/12/2024 10:30 Performing Lab: [facility], [address] [place] [address] Pathology Dept Disclaimer If ancillary studies were utilized, the following Laboratory Developed Test (LDT) disclaimer will apply: Under CLIA requirements, [facility]ology Laboratory is qualified to perform high complexity testing. For all ancillary stains, positive and negative controls stain Pathology Reports Accession: Collected Date/Time: Received Date/Time: Pathologist: [id number] 07/11/2024 10:50 EDT 07/11/2024 12:30 EDT HAMIDA MAN MD Disclaimer appropriately. Performance characteristics of immunohistochemical and chromogenic in-situ hybridization tests have been determined by [facility]ology Laboratory. These tests are used for clinical purposes, They should not be regarded as investigational or for research. Normal [facility] THYROIDon 05-16-2024 THYROID [place] [address] Patient: GEMA ROMERO Phone#: : 1950 Age: 73 Gender: F Pt. Type: Out Account: [id number] Location: [facility] Ordering: GABRIELLE ZIMMERMAN Exam Date: 05/16/2024/11:28 Family Phys: POLY SUTHERLAND Charge Code: [id number] Physician: [place] Order #: [id number] Dose#: PROCEDURE: THYROID ULTRASOUND COMPARISON: [facility], THYROID, 05/12/2022, 10:31. INDICATIONS: Nontoxic multinodular goiter. TECHNIQUE: High-resolution ultrasound was performed of the thyroid gland. FINDINGS: RIGHT LOBE: Thyroid is heterogeneous in echogenicity. Small nodule in the upper thyroid measures 13 x 8 x 8 mm, previously 8 x 7 x 7 mm, TR 4 nodule. Heterogeneous nodule in the mid thyroid measures 19 x 16 x 16 mm, TR 4 nodule. Right thyroid measures 4.5 x 1.4 x 1.6 cm. LEFT LOBE: Left lobe is heterogeneous in echogenicity. It measures 4.3 x 2.1 x 1.4 cm ISTHMUS: Heterogenius echogenicity of the thyroid isthmus. Isthmus measures 0.5 cm. OTHER: None. CONCLUSION: 1. Two right TR 4 nodules. Recommend fine needle aspiration. Dictated by: Vee Huynh MD on 05/16/2024 at 17:39 Approved by: Vee Huynh MD on 05/16/2024 at 17:50 Normal [facility] MAMM DIGITAL UNILAT DIAGNOST IC RTon 05-10-2024 MAMM DIGITAL UNILAT DIAGNOSTIC RT [place] [address] Patient: GEMA ROMERO Phone#: : 1950 Age: 73 Gender: F Pt. Type: Out Account: [id number] Location: [facility] Ordering: CHRISTEL SANCHES Exam Date: 05/10/2024/10:04 Family Phys: POLY SUTHERLAND Charge Code: [id number] Physician: [place] Order #: [id number] Dose#: PROCEDURE: MAMM RT UNILAT DIGITAL DIAGNOSITC WITH CAD COMPARISON: [facility], , 3D BILAT SCREEN, 02/12/2023, 13:35. [facility], 3D BILAT SCREEN, 05/06/2024, 9:03. INDICATIONS: Calcifications. BREAST COMPOSITION: Extremely dense, which lowers the sensitivity of mammography. FINDINGS: DIAGNOSTIC CATEGORY 3--PROBABLY BENIGN: FINDING(S) HAS A HIGH PROBABILITY OF A BENIGN; RIGHT BREAST: FOCAL CALCIFICATIONS, characterized by coarse benign-appearing morphology, mid-breast depth, 3 o'clock position, and <5 in number. RIGHT BREAST: FOCAL CALCIFICATIONS, characterized by amorphous mildly suspicious morphology, mid-breast depth, seen only on the craniocaudal view in the lateral position, and 5- 10 in number. RECOMMENDATIONS: SHORT TERM FOLLOW-UP DIAGNOSTIC MAMMOGRAM RIGHT BREAST IN 6 MONTHS. PLEASE NOTE: A NORMAL MAMMOGRAM DOES NOT EXCLUDE THE POSSIBILITY OF BREAST CANCER. A CLINICALLY SUSPICIOUS PALPABLE LUMP SHOULD BE BIOPSIED. THIS FACILITY UTILIZES A REMINDER SYSTEM TO ENSURE THAT ALL PATIENTS RECEIVE REMINDER LETTERS FOR APPOINTMENTS. THIS INCLUDES REMINDERS FOR ROUTINE MAMMOGRAMS, DIAGNOSITC MAMMOGRAMS, OR OTHER BREAST IMAGING INTERVENTIONS WHEN APPROPRIATE. THIS PATIENT WILL BE PLACED IN THE APPROPRIATE REMINDER SYSTEM. Dictated by: Vee Huynh MD on 05/10/2024 at 20:20 Approved by: Vee Huynh MD on 05/10/2024 at 20:24 Normal [facility] 3D MAMM BILAT SCREENon 05-06 3D MAMM BILAT SCREEN [place] [id number] Patient: GEMA ROMERO Phone#: : 1950 Age: 73 Gender: F Pt. Type: Out Account: [id number] Location: 052 Ordering: CHRISTEL SANCHES Exam Date: 05/06/2024/9:03 Family Phys: POLY SUTHERLAND Charge Code: [id number] Physician: [place] Order #: [id number] Dose#: PROCEDURE: BILATERAL SCREENING BREAST TOMOSYNTHESIS MAMMOGRAM WITH CAD COMPARISON: [facility], 3D BILAT SCREEN, 11/26/2021, 11:02. [facility], 3D BILAT SCREEN, 02/12/2023, 13:35. INDICATIONS: Screening. BREAST COMPOSITION: Extremely dense, which lowers the sensitivity of mammography. FINDINGS: DIAGNOSTIC CATEGORY 0--INCOMPLETE: NEED ADDITIONAL IMAGING EVALUATION. RIGHT BREAST: FOCAL CALCIFICATIONS, characterized by uncertain morphology, mid-breast depth, 8 o'clock position, and 5-10 in number. LEFT BREAST: No significant suspicious finding. No significant change has occurred. RECOMMENDATIONS: ADDITIONAL MAMMOGRAPHIC VIEWS REQUIRED: RIGHT BREAST --We will call the patient back for additional views and issue an additional report. PLEASE NOTE: A NORMAL MAMMOGRAM DOES NOT EXCLUDE THE POSSIBILITY OF BREAST CANCER. A CLINICALLY SUSPICIOUS PALPABLE LUMP SHOULD BE BIOPSIED. THIS FACILITY UTILIZES A REMINDER SYSTEM TO ENSURE THAT ALL PATIENTS RECEIVE REMINDER LETTERS FOR APPOINTMENTS. THIS INCLUDES REMINDERS FOR ROUTINE MAMMOGRAMS, DIAGNOSITC MAMMOGRAMS, OR OTHER BREAST IMAGING INTERVENTIONS WHEN APPROPRIATE. THIS PATIENT WILL BE PLACED IN THE APPROPRIATE REMINDER SYSTEM. Dictated by: Vee Huynh MD on 05/06/2024 at 14:31 Approved by: Vee Huynh MD on 05/06/2024 at 14:56 [facility] ED MED ADMINISTRATION DETAIL on 05-04-2024 ED MED ADMINISTRATION DETAIL Gate Guard Medication Administration Record [address] [address] [id number] 05/04/2024 Patient: GEMA ROMERO Sex: Female : 1950 Age: 73y MEASUREMENTS: Wt: 71.2 kg, Ht/Liu: 61.0 in, BMI: 29.66 ALLERGIES: Erythrocin, Zithromax Z-Pierce Medication Ordered Medication Administration Date/Time 1 of 1 Normal [facility] ED NURSES CLINICAL NOTEon ED NURSES CLINICAL NOTE Nurse Narrative Nurse Clinical Narrative [place] [address] [facility] [place] [address] [id number] 05/04/2024 Patient: GEMA ROMERO Sex: Female : 1950 Age: 73y Disposition: Left W/O Being Seen Disposition Decision Time: 15:05/04/2024 Departure Time: 15:05/04/2024 TRIAGE Arrived by private vehicle. Historian: patient. Accompanied by family. Triage time: 15:02 05/04/2024. Acuity: LEVEL 3. Chief Complaint: MIGRAINE HEADACHE and (aura, double vision). This started today Thursday. SEPSIS SCREEN: NEGATIVE. SIRS criteria negative. No possible sources of infection. -- 15:05/04/24 MICHAELA Ugarte R.N. 15:05/04/24. BP: 169/83 MAP: 112. HR: 76. RR: 17. O2 saturation: 97% Temperature: 98.1 F. Pain level now 8/10. Describes the pain as throbbing. -- 15:05/04/24 MICHAELA Ugarte R.N. Measurements: 15:05/04/24 Wt: 71.2 kg, Ht/Liu: 61.0 in, BMI: 29.66 -- 15:05/04/24 MICHAELA Ugarte R.N. Medications: Synthroid 75 mcg tablet: 1 tablet once a day. -- 15:05/04/24 MICHAELA Ugarte R.N. rosuvastatin 5 mg tablet: 1 tablet once a day. -- 15:12 05/04/24 MICHAELA Ugarte R.N. potassium chloride ER 20 mEq tablet,extended release: 1 tablet twice a day. -- 15:05/04/24 MICHAELA Ugarte R.N. 1 of 3 Nurse Narrative omeprazole 40 mg capsule,delayed release: 1 capsule once a day. -- 15:12 05/04/24 MICHAELA Ugarte R.N. metformin ER 500 mg tablet,extended release 24 hr: 1000 mg twice a day. -- 15:12 05/04/24 MICHAELA Ugarte R.N. hydrochlorothiazide 25 mg tablet: 1 tablet once a day. -- 15:05/04/24 MICHAELA Ugarte R.N. atenolol 25 mg tablet: 1 tablet once a day. -- 15:05/04/24 MICHAELA Ugarte R.N. Allergies: Erythrocin -- 15:05/04/24 MICHAELA Ugarte R.N. Zithromax Z-Pierce -- 15:05/04/24 MICHAELA Ugarte R.N. Home Medications/Allergy Information Source: patient -- 15:05/04/24 MICHAELA Ugarte R.N. Problems: Hypertension -- 15:05/04/24 MICHAELA Ugarte R.N. Diabetes Mellitus -- 15:05/04/24 MICHAELA Ugarte R.N. Migraine Headache -- 15:05/04/24 MICHAELA Ugarte R.N. CVA - Cerebrovascular Accident -- 15:05/04/24 MICHAELA Ugarte R.N. Gastroesophageal Reflux Disease -- 15:05/04/24 MICHAELA Ugarte R.N. Hypothyroidism -- 15:05/04/24 MICHAELA Ugarte R.N. ADDITIONAL SURGERIES: Tubal Ligation -- 15:05/04/24 MICHAELA Ugarte R.N. Carpal Tunnel Surgery. right -- 15:05/04/24 MICHAELA Ugarte R.N. History 15:02 05/04/24. PAST MEDICAL HX: Immunizations: up-to-date. No menstrual periods. SOCIAL HX: Never smoker. No alcohol use or drug use. The patient has not traveled outside the [place] Infectious disease exposure: No infectious disease exposure. ABUSE ASSESSMENT: The patient answered yes to the question(s) Do you feel safe in your home? and no to the question(s) Are you afraid to go home?. Abuse denied. No suspicion of abuse. 2 of 3 Nurse Narrative SELF HARM ASSESSMENT: Self harm assessment was performed. The patient answered no to the question(s) Have you recently felt down, depressed, or hopeless? and Do you have thoughts of harming or killing yourself?. FALL RISK ASSESSMENT: Fall risk assessment completed. Risk factors identified include patient age greater than 65 years. -- 15:05/04/24 MICHAELA Ugarte R.N. Interventions 15:02 05/04/24. Advanced care plan (Full Code). -- 15:05/04/24 MICHAELA Ugarte R.N. DISPOSITION / DISCHARGE Departure time: 15:35 05/04/2024. Condition at departure: unchanged. The patient left the Emergency Department without being seen by a physician. The patient appears to be alert and oriented x4. The patient stated is leaving due to personal reasons. The patient left the Emergency Department ambulatory and via private vehicle. -- 15:54 05/04/24 MICHAELA Ugarte R.N. (Electronically signed by Shanna Ugarte R.N. 05/04/24 15:54:52 EST) Generated by [facility] 3 of 3 [facility] ED ORDER SHEET (CPOE ONLY)on 05-04-2024 ED ORDER SHEET (CPOE ONLY) Order Sheet Order Sheet [address] [address] [id number] 05/04/2024 Patient: GEMA ROMERO Sex: Female : 1950 Age: 73y MEASUREMENTS: Wt: 71.2 kg, Ht/Liu: 61.0 in, BMI: 29.66 ALLERGIES: Erythrocin, Zithromax Z-Pierce MEDICATION/IV/DRIP/FL UID ORDERS Order Description Priority Entered Acknowledged Completed LAB ORDERS Order Description Priority Entered Acknowledged Collected Completed DIAGNOSTIC STUDY ORDERS Order Description Priority Entered Acknowledged Completed STAFF ORDERS Order Description Priority Entered Acknowledged Collected Completed 1 of 1 [facility] ED SUPER BILLon 05-04-2024 [facility] [address] [place] [address] [id number] 05/04/2024 Patient: GEMA ROMERO Sex: Female : 1950 Age: 73y Item Professional Category Description Facility Code Code Quantity Fee Total Grand Total $0.00 1 of 1 Normal [facility] ED VISIT SUMMARYon ED VISIT SUMMARY Visit Overview Visit Overview [facility] [address] [place] [address] [id number] 05/04/2024 Patient: GEMA ROMERO Sex: Female : 1950 Age: 73y 05/04/2024 03:54 PM EST ED Arrival:15:02 05/04/2024 EST Status: Recent Travel:no Language:eng Adv Directive: Isolation Status: Ethnicity:N Fall Risk:risk Infectious Disease Exposure:no Measurements:5'1 / 154.9 Self-Harm Status:risk Sepsis Screen:negative cm 157.0 lb / 71.2 kg Chief Complaint:MIGRAINE HEADACHE, (aura, double vision), and (Thursday ) ALLERGIES Erythrocin Zithromax Z-Pierce HOME MEDICATIONS atenolol 25 mg tablet: 1 tablet once a day. hydrochlorothiazide 25 mg tablet: 1 tablet once a day. metformin ER 500 mg tablet,extended release 24 hr: 1000 mg twice a day. omeprazole 40 mg capsule,delayed release: 1 capsule once a day. potassium chloride ER 20 mEq tablet,extended release: 1 tablet twice a day. 1 of 3 Visit Overview rosuvastatin 5 mg tablet: 1 tablet once a day. Synthroid 75 mcg tablet: 1 tablet once a day. PAST MEDICAL HISTORY / PROBLEMS CVA - Cerebrovascular Accident Diabetes Mellitus Gastroesophageal Reflux Disease Hypertension Hypothyroidism Immunizations: up-to-date Migraine Headache No menstrual periods PAST SURGICAL HISTORY Carpal Tunnel Surgery. right Tubal Ligation SOCIAL HISTORY Smoking status: No Alcohol use: No Drug use: No ED COURSE MEDICATIONS GIVEN IN EMERGENCY DEPARTMENT IV SITE INFORMATION INTAKE OUTPUT REASSESMENT (most recent) VITAL SIGNS First Vitals Last Vitals 2 of 3 Visit Overview First Vitals Last Vitals Temp 15:04 05/04/24 98.1 F Temp 15:04 05/04/24 98.1 F BP 15:04 05/04/24 169/83 BP 15:04 05/04/24 169/83 HR 15:04 05/04/24 76 HR 15:04 05/04/24 76 RR 15:04 05/04/24 17 RR 15:04 05/04/24 17 O2 Sat 15:04 05/04/24 97% O2 Sat 15:04 05/04/24 97% Pain 15:04 05/04/24 8 Pain 15:04 05/04/24 8 ETCO2 15:04 05/04/24 ETCO2 15:04 05/04/24 GCS 15:04 05/04/24 GCS 15:04 05/04/24 RTS 15:04 05/04/24 RTS 15:04 05/04/24 PROCEDURES NURSING INTERVENTIONS LABS / STUDIES CLINICAL IMPRESSION 3 of 3 Normal [facility] ED VITALS FLOW SHEETon 05-04 ED VITALS FLOW SHEET Vitals Vital Sign Flow Sheet [address] [address] [id number] 05/04/2024 Patient: GEMA ROMERO Sex: Female : 1950 Age: 73y Measurements Wt: 71.2 kg, Ht/Liu: 61.0 in, BMI: 29.66 Measured Time BP MAP HR RR O2Sat ETCO2 Temp Pain GCS RTS 15:04 05/04/2024 169/83 112 76 17 97% 98.1 F 8 1 of 1 Normal [facility] BMP with eGFRon 04-28-2024 AGE 73 years Normal [facility] Comment on above: Performed By: #### 2 [id number] #### [facility],[address] [place] [address] Anion gap [Moles/Vol] 13 mmol/L Normal 10 - 20 [facility] Comment on above: Performed By: #### 2 [id number] #### [facility],[address] [place] [address] BMP with eGFR Normal [facility] Comment on above: Result Comment: BASI C METABOLIC PANEL Performed By: #### 2 [id number] #### [facility],[address] [place] [address] Calcium [Mass/Vol] 9.2 mg/dL Normal 8.5 - 10.1 [facility] Comment on above: Performed By: #### 2 [id number] #### [facility],[address] [place], [place] [id number] Chloride [Moles/Vol] 100 mmol/L Normal 98 - 107 [facility] Comment on above: Performed By: #### 2 [id number] #### [facility],[address] [place], [place] [id number] CO2 [Moles/Vol] 29.3 mmol/L Normal 21.0 - 32.0 [facility] Comment on above: Performed By: #### 2 [id number] #### [facility],[address] [place], [place] [address] Creatinine [Mass/Vol] 0.79 mg/dL Normal 0.55 - 1.02 [facility] Comment on above: Performed By: #### 2 [id number] #### [facility],[address] [place], [place] [address] GFR/1.73 sq M.predicted among non-blacks MDRD (S/P/Bld) [Vol rate/Area] mL/min/{1.73_m2} Normal 60 - 999 [facility] Comment on above: Performed By: #### 2 [id number] #### [facility],[address] [place] [address] Result Comment: ACCO RDING TO THE NATIONAL KIDNEY DISEASE EDUCATION PROGRAM(NKDE), A NORMAL eGFR IS A VALUE GREATER THAN OR EQUAL TO 60 ML/MIN/1.73 SQ METERS. CHRONIC KIDNEY DISEASE: <60mL/MIN/1.73 SQ METERS KIDNEY FAILURE: <15mL/MIN/1.73 SQ METERS THIS TEST SHOULD ONLY BE USED FOR PATIENTS 18 YEARS OF AGE AND OLDER. Glucose [Mass/Vol] 110 mg/dL High 74 - 106 [facility] Comment on above: Performed By: #### 2 [id number] #### [facility],[address] [place] [address] Potassium [Moles/Vol] 3.4 mmol/L Low 3.5 - 5.1 [facility] Comment on above: Performed By: #### 2 17988 #### [facility],[address] [place], [place] [address] Sodium [Moles/Vol] 139 mmol/L Normal 136 - 145 [facility] Comment on above: Performed By: #### 2 54501 #### [facility],[address] [place], [place] [address] Urea nitrogen [Mass/Vol] 19 mg/dL High 7 - 18 [facility] Comment on above: Performed By: #### 2 90658 #### [facility],[address] [place], [place] [address] HEMOGLOBIN A1C (POM)on 04-28 Glucose [Mass/Vol] 142.7 mg/dL High 0.0 - 0.0 [facility] Comment on above: Result Comment: BLDo HEMOGLOBIN A1C REFERENCE RANGESBLDo Suggested Diagnosis HbA1c(%) HbA1C (mmol/mol Diabetic >/=6.5 >/=48 Prediabetes 5.7 - 6.4 39 - 47 Normal <5.7 <39 Performed By: #### 2 [id number] #### [facility],[address] [place], [place] [address] HbA1c (Bld) [Mass fraction] 6.6 % High 0.0 - 6.5 [facility] Comment on above: Performed By: #### 2 99246 #### [facility],[address] [place], [place] [address] SGOT (AST)on 04-28-2024 AST [Catalytic activity/Vol] 16 U/L Normal 13 - 39 [facility] Comment on above: Performed By: #### 2 89227 ####[facility],[address] [place] [address] SGPT (ALT)on 04-28-2024 ALT [Catalytic activity/Vol] 16 U/L Normal 16 - 63 [facility] Comment on above: Performed By: #### 2 15686 #### [facility],[address] [place] [address] T4-FREE (FREE THYROXINE)on 0 04-28-2024 Free T4 [Mass/Vol] 1.25 ng/dL Normal 0.76 - 1.46 [facility] Comment on above: Result Comment: P otential of falsely elevated results when biotin concentrations are > 10 ng/mL. Performed By: #### 2 96085 #### [address] [address] TSHon 04-28-2024 TSH Qn 2.60 m[IU]/L Normal 0.35 - 3.74 [facility] Comment on above: Performed By: #### 2 19891 #### [facility],[address] [place] [address] URINE MICROALBUMIN, RANDOMon 04-28-2024 MICROALBUMIN UR 4.3 mg/dL Normal 0.1 - 11.6 [facility] Comment on above: Performed By: #### 2 43164 #### [address] [address] VITAMIN D, 25 HYDROXYon VitD 58.20 ng/mL Normal 30.00 - 100 [facility] Comment on above: Result Comment: 25-O HD3 indicates both endogenous production and supplementation. 25-OHD2 is an indicator of exogenous sources, such as diet or supplementation. Therapy is based on measurement of Total 25-OHD, with levels <20 ng/mL indicative of Vitamin D deficiency, while levels between 20 ng/mL and 30 ng/mL suggest insufficiency. Optimal levels are >=30ng/mL. Vitamin D, 25-OH D3 Not Established Vitamin D, 25-OH D2 Not Established Performed By: #### 2 [id number] ####[facility],[address] [facility] [address] Basic Metabolic Profile (BMP )on 04-06-2024 BUN/CRE 35.5 RATIO High 10-20 [facility] Comment on above: Performed By: #### L 500.2500, L501.9520, L501.5200, L100.0100 #### [facility] [address] [place], [address] CA,Total 9.5 mg/dL Normal 8.5-10.1 [facility] Comment on above: Performed By: #### L 500.2500, L501.9520, L501.5200, L100.0100 #### [facility] [address] [place], [address] Chloride [Moles/Vol] 105 mmol/L Normal 98-107 [facility] Comment on above: Performed By: #### L 500.2500, L501.9520, L501.5200, L100.0100 #### [facility] [address] [place], [address] CO2 [Moles/Vol] 29.0 mmol/L Normal 21.0-32.0 [facility] Comment on above: Performed By: #### L 500.2500, L501.9520, L501.5200, L100.0100 #### [facility] [address] [place], [address] Creatinine [Mass/Vol] 0.82 mg/dL Normal 0.55-1.02 [facility] Comment on above: Result Comment: The validity of the calculated GFR GFRAA in patients over 70 years has not been determined. Clinical correlation is essential. Performed By: #### L 500.2500, L501.9520, L501.5200, L100.0100 #### [facility] [address] [place], [address] EST GFR - AA 89 mL/min Normal >60 [facility] Comment on above: Result Comment: Afri can [place] GFR Calc Performed By: #### L 500.2500, L501.9520, L501.5200, L100.0100 #### [facility] [address] [place], [address] GAP 3 Low 5-15 [facility] Comment on above: Performed By: #### L 500.2500, L501.9520, L501.5200, L100.0100 #### [facility] [address] [place], [address] GFR/1.73 sq M.predicted among non-blacks MDRD (S/P/Bld) [Vol rate/Area] 73 mL/min/{1.73_m2} Normal >60 [facility] Comment on above: Result Comment: Non- GFR Calc Performed By: #### L 500.2500, L501.9520, L501.5200, L100.0100 #### [facility] [address] [place], [address] Glucose [Mass/Vol] 102 mg/dL Normal 74-106 [facility] Comment on above: Result Comment: Fast ing Glucose result from 100 to 125 mg/dL suggests IMPAIRED HOMEOSTASIS per A.D.A. criteria. Performed By: #### L 500.2500, L501.9520, L501.5200, L100.0100 #### [facility] [address] [place], [address] Potassium [Moles/Vol] 3.9 mmol/L Normal 3.5-5.1 [facility] Comment on above: Performed By: #### L 500.2500, L501.9520, L501.5200, L100.0100 #### [facility] [address] [place], [address] Sodium [Moles/Vol] 138 mmol/L Normal 136-145 [facility] Comment on above: Performed By: #### L 500.2500, L501.9520, L501.5200, L100.0100 #### [facility] [address] [place], [address] Urea nitrogen [Mass/Vol] 29 mg/dL High 7-18 [facility] Comment on above: Performed By: #### L 500.2500, L501.9520, L501.5200, L100.0100 #### [facility] [address] [place], [address] CBC W/Diff, Automatedon 03-20 Absolute Lymph 2.53 X10 3/uL Normal 0.83-4.51 [facility] Comment on above: Performed By: #### L 500.2500, L501.9520, L501.5200, L100.0100 #### [facility] [address] [place], [address] Absolute Neut 4.9 X10 3/uL Normal 2.0-7.7 [facility] Comment on above: Performed By: #### L 500.2500, L501.9520, L501.5200, L100.0100 #### [facility] [address] [place], [address] Basophils/100 WBC (Bld) 0.7 % Normal 0-1 [facility] Comment on above: Performed By: #### L 500.2500, L501.9520, L501.5200, L100.0100 #### [facility] [address] [place], [address] Eosinophils/100 WBC (Bld) 4.8 % Normal 0-5 [facility] Comment on above: Performed By: #### L 500.2500, L501.9520, L501.5200, L100.0100 #### [facility] [address] [place], [address] Erythrocyte distribution width (RBC) [Ratio] 16.1 % High 11.6-14.6 [facility] Comment on above: Performed By: #### L 500.2500, L501.9520, L501.5200, L100.0100 #### [facility] [address] [place], [address] Hematocrit (Bld) [Volume fraction] 35.9 % Low 37-47 [facility] Comment on above: Performed By: #### L 500.2500, L501.9520, L501.5200, L100.0100 #### [facility] [address] [place], [address] Hemoglobin (Bld) [Mass/Vol] 11.0 g/dL Low 12.0-15.0 [facility] Comment on above: Performed By: #### L 500.2500, L501.9520, L501.5200, L100.0100 #### [facility] [address] [place], [address] IG% 0.400 Normal 0.0-0.9 [facility] Comment on above: Result Comment: IG% - Immature Granulocytes (promyelocytes, myelocytes and metamyelocytes) > 1% indicates that a LEFT SHIFT is Present. Performed By: #### L 500.2500, L501.9520, L501.5200, L100.0100 #### [facility] [address] [place], [address] Lymphocytes/100 WBC (Bld) 29.8 % Normal 19-41 [facility] Comment on above: Performed By: #### L 500.2500, L501.9520, L501.5200, L100.0100 #### [facility] [address] [place], [address] MCH (RBC) [Entitic mass] 23.8 pg Low 27.0-32.0 [facility] Comment on above: Performed By: #### L 500.2500, L501.9520, L501.5200, L100.0100 #### [facility] [address] [place], [address] MCHC (RBC) [Mass/Vol] 30.6 g/dL Low 32-36 [facility] Comment on above: Performed By: #### L 500.2500, L501.9520, L501.5200, L100.0100 #### [facility] [address] [place], [address] MCV (RBC) [Entitic vol] 77.5 fL Low 81-99 [facility] Comment on above: Performed By: #### L 500.2500, L501.9520, L501.5200, L100.0100 #### [facility] [address] [place], [address] Monocytes/100 WBC (Bld) 7.2 % Normal 0-10 [facility] Comment on above: Performed By: #### L 500.2500, L501.9520, L501.5200, L100.0100 #### [facility] [address] [place], [address] Neutrophils/100 WBC (Bld) 57.1 % Normal 47-70 [facility] Comment on above: Performed By: #### L 500.2500, L501.9520, L501.5200, L100.0100 #### [facility] [address] [place], [address] Nucleated RBC (Bld) [#/Vol] 0 10*3/uL Normal 0-5 [facility] Comment on above: Performed By: #### L 500.2500, L501.9520, L501.5200, L100.0100 #### [facility] [address] [place], [address] Platelet mean volume (Bld) [Entitic vol] 10.7 fL Normal 6.2-12.0 [facility] Comment on above: Performed By: #### L 500.2500, L501.9520, L501.5200, L100.0100 #### [facility] [address] [place], [address] Platelets (Bld) [#/Vol] 325 10*3/uL Normal 150-450 [facility] Comment on above: Performed By: #### L 500.2500, L501.9520, L501.5200, L100.0100 #### [facility] [address] [place], [address] RBC (Bld) [#/Vol] 4.63 10*6/uL Normal 4.2-5.4 [facility] Comment on above: Performed By: #### L 500.2500, L501.9520, L501.5200, L100.0100 #### [facility] [address] [place], [address] RDW SD 45.3 fl High 35.1-43.9 [facility] Comment on above: Performed By: #### L 500.2500, L501.9520, L501.5200, L100.0100 #### [facility] [address] [place], [address] WBC (Bld) [#/Vol] 8.5 10*3/uL Normal 4.4-11.0 [facility] Comment on above: Performed By: #### L 500.2500, L501.9520, L501.5200, L100.0100 #### [facility] [address] [place], [address] Magnesiumon 04-06-2024 Magnesium [Mass/Vol] 2.0 mg/dL Normal 1.6-2.6 [facility] Comment on above: Performed By: #### L 500.2500, L501.9520, L501.5200, L100.0100 #### [facility] [address] [place], [place], [address] Thyroid Stim Hormone (TSH)on 04-06-2024 TSH 3.060 uIU/mL Normal 0.358-3.740 [facility] Comment on above: Performed By: #### L 500.2500, L501.9520, L501.5200, L100.0100 #### [facility] [address] [place], [address] CNPVannessa 03-02-2024 CNPN Telephone (OBGYWM) GEMA ROMERO ([id number]) 1950 F Date Time Provider Department 03/02/24 CHRISTEL SANCHES OBMARTINAWJayne During your visit today, we recorded the following information about you: Christel Sanches APRN.CNP 03/02/2024 8:10 AM Signed Please let the patient know that her vulvar biopsy showed plasma cell vulvitis. I would like her to use the clobetasol cream twice a day for 2 weeks just to that area, then 3 times a week. If this does not help with the irritation to let me know and we can try a different steroid cream. Christel Sanches APRN.Jamia Shane RN 03/02/2024 8:43 AM Signed Left message for patient to call office. MARCEL Ramirez Lindsey, RN 03/02/2024 8:59 AM Signed Patient notified of results, verbalizes understanding of instructions. Shaniqua Saunders RN Allergies As of Date: 03/02/2024 Noted Allergy Reaction AZITHROMYCIN 08/18/2002 2 - Rash Comments: z pack nausea ERYTHROMYCIN BASE 08/18/2002 Comments: nausea Date Reviewed: 02/19/2024 Reviewed by: Fariha Wolf LPN - Fully Assessed Reason for Visit: Results [95] Prescriptions as of 03/02/2024 - sulfamethoxazole-trim ethoprim (BACTRIM DS) 800-160 mg per tablet Take 1 tablet by mouth every 12 hours. - LORazepam (ATIVAN) 0.5 mg 0.5 mg as needed. - ibuprofen (ADVIL ORAL) Take by mouth. - triamcinolone (KENALOG) 0.1 % lotion Apply to affected area as needed. - Estradiol (YUVAFEM) 10 mcg vaginal tablet Use 1 tablet vaginally two times a week. - omeprazole (PRILOSEC) 40 mg capsule - potassium chloride 20 mEq TbER - metFORMIN ER (GLUCOPHAGE XR) 500 mg 24 hr tablet Take 1,000 mg by mouth two times a day. - SYNTHROID 75 mcg tablet - hydroCHLOROthiazide 25 mg tablet - rosuvastatin (CRESTOR) 5 mg tablet Take 5 mg by mouth once daily. - aspirin, enteric coated (ASPIRIN, ENTERIC COATED) 81 mg EC tablet Take 81 mg by mouth once daily. - omega3/dha/epa/fish oil/vit D3 (OMEGA-3 PLUS VITAMIN D3 ORAL) Take by mouth. - clobetasol (TEMOVATE) 0.05 % cream Apply to affected area 1-3x/week for maintenance. - ATENOLOL 50 MG TAB Take 25 mg by mouth once daily. 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 Advised they are still in process and we will contact her once we receive them. Advised there may be a delay in results if the pathology lab is behind. Bing Kellogg RN Allergies As of Date: 02/29/2024 Noted Allergy Reaction AZITHROMYCIN 08/18/2002 2 - Rash Comments: z pack nausea ERYTHROMYCIN BASE 08/18/2002 Comments: nausea Date Reviewed: 02/19/2024 Reviewed by: Fariha Wolf LPN - Fully Assessed Reason for Visit: Results [95] Prescriptions as of 03/01/2024 - sulfamethoxazole-trim ethoprim (BACTRIM DS) 800-160 mg per tablet Take 1 tablet by mouth every 12 hours. - LORazepam (ATIVAN) 0.5 mg 0.5 mg as needed. - ibuprofen (ADVIL ORAL) Take by mouth. - triamcinolone (KENALOG) 0.1 % lotion Apply to affected area as needed. - Estradiol (YUVAFEM) 10 mcg vaginal tablet Use 1 tablet vaginally two times a week. - omeprazole (PRILOSEC) 40 mg capsule - potassium chloride 20 mEq TbER - metFORMIN ER (GLUCOPHAGE XR) 500 mg 24 hr tablet Take 1,000 mg by mouth two times a day. - SYNTHROID 75 mcg tablet - hydroCHLOROthiazide 25 mg tablet - rosuvastatin (CRESTOR) 5 mg tablet Take 5 mg by mouth once daily. - aspirin, enteric coated (ASPIRIN, ENTERIC COATED) 81 mg EC tablet Take 81 mg by mouth once daily. - omega3/dha/epa/fish oil/vit D3 (OMEGA-3 PLUS VITAMIN D3 ORAL) Take by mouth. - clobetasol (TEMOVATE) 0.05 % cream Apply to affected area 1-3x/week for maintenance. - ATENOLOL 50 MG TAB Take 25 mg by mouth once daily. 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 To treat with Flagyl 500mg PO BID for 7 days. 1) No alcohol during treatment and for 24 hours after last dose. 2) No intercourse during treatment. 3) Probiotic by mouth once daily for 30 days or as needed. Christel Simpson, RELATIONSHIP BANKER.Bing Weber RN 02/22/2024 8:37 AM Signed Patient notified. Asking if there is a medication that she can use to treat the vagina rather than another round of Flagyl. Briefly discussed Metrogel. Please advise. MARCEL Frausto Renee, APRN.CNP 02/22/2024 10:01 AM Signed Yes, I sent in Metrogel. Christel Sanches APRN.Bing Weber RN 02/22/2024 10:09 AM Signed Patient notified. Bing Kellogg RN Allergies As of Date: 02/22/2024 Noted Allergy Reaction AZITHROMYCIN 08/18/2002 2 - Rash Comments: z pack nausea ERYTHROMYCIN BASE 08/18/2002 Comments: nausea Date Reviewed: 02/19/2024 Reviewed by: Fariha Wolf LPN - Fully Assessed Reason for Visit: Results [95] Order(s):metroNIDAZOL E (METROGEL VAGINAL) 0.75 % (37.5mg/5 gram) Vaginal GelUse 1 Applicatorful vaginally daily at bedtime for 5 days.Disp: 70 gRfl: 0 Prescriptions as of 02/22/2024 - metroNIDAZOLE (METROGEL VAGINAL) 0.75 % (37.5mg/5 gram) Vaginal Gel Use 1 Applicatorful vaginally daily at bedtime for 5 days. - sulfamethoxazole-trim ethoprim (BACTRIM DS) 800-160 mg per tablet Take 1 tablet by mouth every 12 hours. - LORazepam (ATIVAN) 0.5 mg 0.5 mg as needed. - ibuprofen (ADVIL ORAL) Take by mouth. - triamcinolone (KENALOG) 0.1 % lotion Apply to affected area as needed. - Estradiol (YUVAFEM) 10 mcg vaginal tablet Use 1 tablet vaginally two times a week. - omeprazole (PRILOSEC) 40 mg capsule - potassium chloride 20 mEq TbER - metFORMIN ER (GLUCOPHAGE XR) 500 mg 24 hr tablet Take 1,000 mg by mouth two times a day. - SYNTHROID 75 mcg tablet - hydroCHLOROthiazide 25 mg tablet - rosuvastatin (CRESTOR) 5 mg tablet Take 5 mg by mouth once daily. - aspirin, enteric coated (ASPIRIN, ENTERIC COATED) 81 mg EC tablet Take 81 mg by mouth once daily. - omega3/dha/epa/fish oil/vit D3 (OMEGA-3 PLUS VITAMIN D3 ORAL) Take by mouth. - clobetasol (TEMOVATE) 0.05 % cream Apply to affected area 1-3x/week for maintenance. - ATENOLOL 50 MG TAB Take 25 mg by mouth once daily. 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 METRONIDAZOLE 0.75 % (37.5 MG/5 GRAM* 70 g 0 02/22/2024 02/27/2024 Route: VAGINAL Sig: Use 1 Applicatorful vaginally daily at bedtime for 5 days. Medications Discontinued During This Encounter Prescriptions - metroNIDAZOLE (FLAGYL) 500 mg tablet (Discontinued) Take 1 tablet by mouth two times a day for 7 days. Encounter Status:Closed by BING KELLOGG on 02/22/24 Normal [facility] BACTERIAL VAGINOSIS NAATon 1 04-20-2023 Lactobacillus crispatus+gasseri+estuardo enii + Gardnerella vaginalis + Atopobium vaginae rRNA LACI+probe Ql (Vag fld) Positive Abnormal Negative for bacterial vaginosis [facility] Comment on above: Order Comment: Speci men Type: SWABOrdering Facility: [facility] Address: [address] [place] [address] Performed By: #### C VTV, BVAMP ####[facility] LABCLIA [id number] [place] [address] [place] CINDY/TRICHOMONAS NAATon 1 04-20-2023 C. glabrata RNA LACI+probe Ql (Vag fld) Negative Normal Negative for Cindy glabrata [facility] Comment on above: Order Comment: Speci men Type: SWABOrdering Facility: [facility] Address: [address] [place] [address] Performed By: #### C VTV, BVAMP ####[facility] [id number] [address] [place] Cindy sp DNA LACI+probe Ql (Vag fld) Negative Normal Negative for Cindy species [facility] Comment on above: Order Comment: Speci men Type: SWABOrdering Facility: [facility] Address: [address] [place] [address] Performed By: #### C VTV, BVAMP ####[facility] [id number] [address] [place] T. vaginalis DNA LACI+probe Ql (Unsp spec) Negative Normal Negative for Trichomonas vaginalis by amplification [facility] Comment on above: Order Comment: Speci men Type: SWABOrdering Facility: [facility] Address: [address] [place] [address] Performed By: #### C VTV, BVAMP ####[facility] [id number] [place] [address] [place] CNOVon 02-19-2024 CNOV Office Visit (OBGYWM ) CLOSE,GEMA L ([id number]) 1950 F Date Time Provider Department 02/19/24 2:30 PM CHRISTEL SANCHES OBGYWM During your visit today, we recorded the following information about you: Blood pressure Weight 130/76 73.8 kg Christel Sanches APRN.CNP 02/19/2024 3:31 PM Signed 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 Gema Romero is a 73 year old female who presents today for a vulvar biopsy. Indication: persistent pruritis. UNIVERSAL PROTOCOL / SAFETY CHECKLIST Procedure to be Performed:Vulvar Biopsy. Sign In: A Moment of CARE was completed. Personnel directly involved with the procedure wore the appropriate PPE (Personal Protective Equipment). Patient/Surrogate Stated/Verified: PATIENT VERIFIED(optional for EMERGENT procedures): Patient name, Date of , Relevant allergies, and The intended procedure Time Out Communication: Intended patient and procedure match the source documents. Consent documented and matches the intended procedure. Sign Out: SIGN OUT (optional for EMERGENT procedures): All specimen containers correctly labeled. No instruments, equipment or retained foreign bodies applicable. Post-procedure follow-up management communicated and Plan of Care Visit completed when applicable. PROCEDURE NOTE: GROSS LESIONS: Yes, skin discoloration BIOPSY: Area was cleansed with betadine and anesthetized with 1mL 1% lidocaine with 1:100,000 epi. 4mm [place] punch used to biopsy region. HEMOSTASIS: Obtained with silver nitrate and pressure Procedure Summary: Patient tolerated procedure well. ASSESSMENT: Vuvlar biopsy BV/yeast ordered for vaginal irritation due to recent antibiotics PLAN: Specimens labeled and sent to Pathology. Will notify patient of results in 1-2 weeks. Post-procedure instructions reviewed and written material given to the patient. Christel Sanches APRN.Fariha Simmons LPN 02/19/2024 2:33 PM Signed VULVAR BIOPSY PATIENT INSTRUCTIONS Many conditions may cause your group chief operator to suggest a vulvar biopsy including vulvar itching unresponsive to therapy, ulcerated lesions, pigmented lesions, and tumors. The biopsy result will assist your group chief operator to devise a treatment plan suitable to your condition. 1. Usually, there is a local discomfort, swelling, and skin discoloration. Using cold compresses overnight usually alleviates the discomfort considerably. Warm compresses thereafter can be used as needed. Prescribed analgesic (pain killers) are not necessary. You may use Advil, Tylenol, etc. for pain relief. 2. You may shower or take tub baths. 3. If sutures are used, they will dissolve in 7-14 days. 4. You should call the office if there is excessive bleeding, swelling, fever, chills, sweats, or difficulty walking. 5. Biopsy results will be available in 7-10 days. If you have not heard your results in 2 weeks please contact your physician. Allergies As of Date: 02/19/2024 Noted Allergy Reaction AZITHROMYCIN 08/18/2002 2 - Rash Comments: z pack nausea ERYTHROMYCIN BASE 08/18/2002 Comments: nausea Date Reviewed: 02/19/2024 Reviewed by: Fariha Wolf LPN - Fully Assessed Reason for Visit: vulvar biopsy [Other] Primary Visit Diagnosis:Vulvar irritation [N90.89] Other Visit Diagnosis:Vaginal irritation [N89.8] Order(s):SURGICAL PATHOLOGY [[id number]] Order #: [id number]. #:[id number] CINDY/TRICHOMONAS NAAT [SQCVTV] Order #: [id number]. #:[id number] BACTERIAL VAGINOSIS NAAT [SQBVAMP] Order #: [id number]. #:[id number] Prescriptions as of 02/19/2024 - sulfamethoxazole-trim ethoprim (BACTRIM DS) 800-160 mg per tablet Take 1 tablet by mouth every 12 hours. - LORazepam (ATIVAN) 0.5 mg 0.5 mg as needed. - ibuprofen (ADVIL ORAL) Take by mouth. - triamcinolone (KENALOG) 0.1 % lotion Apply to affected area as needed. - Estradiol (YUVAFEM) 10 mcg vaginal tablet Use 1 tablet vaginally two times a week. - omeprazole (PRILOSEC) 40 mg capsule - potassium chloride 20 mEq TbER - metFORMIN ER (GLUCOPHAGE XR) 500 mg 24 hr tablet Take 1,000 mg by mouth two times a day. - SYNTHROID 75 mcg tablet - hydroCHLOROthiazide 25 mg tablet - rosuvastatin (CRESTOR) 5 mg tablet Take 5 mg by mouth once daily. - aspirin, enteric coated (ASPIRIN, ENTERIC COATED) 81 mg EC tablet Take 81 mg by mouth once daily. - omega3/dha/epa/fish oil/vit D3 (OMEGA-3 PLUS VITAMIN D3 ORAL) Take by mouth. - clobetasol (TEMOVATE) 0.05 % cream Apply to affected area 1-3x/week for maintenance. - ATENOLOL 50 MG TAB Take 25 mg by mouth once daily. Problem List As Of Date 02/19/2024 Noted Resolved HYPERLIPIDEMIA NEC/NOS [E78.5] 08/18/2002 HYPERTENSION NOS [I10] 08/18/2002 SYMPTOMATIC FEMALE CLIMACTERIC STATE [N95.1] 08/18/2002 COUGH [R05.9] 01/02/2006 ACTINIC KERATOSIS [L57.0] 03/25/2006 LUNA ANGIOMA////NEVUS, NON-NEOPLASTIC [I78.1] (more content not included)... Normal [facility] SURGICAL PATHOLOGYon 024 CASE REPORT Normal [facility] Comment on above: Order Comment: Speci men Type: TISSUE SPECIMENOrdering Facility: [facility] Address: [address] [place] [address] Result Comment: Surg [facility] Pathology Report Case: [id number] Authorizing Provider: Christel Sanches APRN.BAG MACHINE OPERATOR Collected: 02/19/2024 03:13 PM Ordering Location: OB/Gynecology Received: 02/19/2024 04:27 PM Pathologist: Osorio Harkins MD Specimen: Vulva, Biopsy Performed By: #### S ####[facility] [id number] [address] [place] CLINICAL HISTORY persistent pruritis Normal [facility] Comment on above: Order Comment: Speci men Type: TISSUE SPECIMENOrdering Facility: [facility] Address: [address] [place] [address] Performed By: #### S ####[facility] [id number] [place] [address] [place] DIAGNOSIS COMMENT Normal [facility] Comment on above: Order Comment: Speci men Type: TISSUE SPECIMENOrdering Facility: [facility] Address: [address] [place] [address] Result Comment: Sect ions demonstrate a mildly spongiotic squamous mucosa with a relatively mild underlying lymphoplasmacytic infiltrate. A PAS stain was performed with appropriate controls on block A1. No fungi were identified.The histologic findings are nonspecific. The possibility of plasma cell vulvitis could be considered. Clinical correlation remains essential. Performed By: #### S ####[facility] [id number] [address] OF [facility] FINAL DIAGNOSIS Normal [facility] Comment on above: Order Comment: Speci men Type: TISSUE SPECIMENOrdering Facility: [facility] Address: [address] [place] [address] Result Comment: AArlene brooks, biopsy: - Mild spongiotic mucositis, see comment. Performed By: #### S ####[facility] [id number] [address] FINAL PERFORMING LAB Normal [facility] Comment on above: Order Comment: Speci men Type: TISSUE SPECIMENOrdering Facility: [facility] Address: [address] [place] [address] Result Comment: Diag nostic interpretation performed at [facility], [address] [place] [address] CLIA# [id number] Food Processor: Mikal Sanchez M.D. Performed By: #### S ####[facility] [id number] [address] OF [facility] GROSS DESCRIPTION Normal [facility] Comment on above: Order Comment: Speci men Type: TISSUE SPECIMENOrdering Facility: [facility] Address: [address] [place] [address] Result Comment: A. V ulva, Biopsy Received in formalin is a cylindrical segment of skin and subcutaneous tissue measuring 0.3 x 0.3 x 0.4 cm. On the skin surface there is a 0.1 cm, cavazos-white, flat area. The specimen is bisected. Totally submitted in one cassette. DB February 20, 2024 12:34 AM Gross examination performed at [facility], [address] [place] [address] Performed By: #### S ####[facility] [id number] [place] [id number] Awa 01-23-2024 CANDYN Telephone (UCTR) NICK,GEMA Perez ([id number]) 1950 F Date Time Provider Department 01/23/24 [facility] During your visit today, we recorded the following information about you: Christel Sanches APRN.CNP 01/23/2024 8:32 AM Signed BV positive. To treat with Flagyl 500mg PO BID for 7 days. 1) No alcohol during treatment and for 24 hours after last dose. 2) No intercourse during treatment. 3) Probiotic by mouth once daily for 30 days or as needed. Christel Sanches APRN.Bing Weber RN 01/25/2024 8:12 AM Signed Patient notified.Bing Kellogg RN Allergies As of Date: 01/23/2024 Noted Allergy Reaction AZITHROMYCIN 08/18/2002 2 - Rash Comments: z pack nausea ERYTHROMYCIN BASE 08/18/2002 Comments: nausea Date Reviewed: 01/22/2024 Reviewed by: Christel Sanches APRN.CNP - Fully Assessed Reason for Visit: Results [95] Order(s):metroNIDAZOL E (FLAGYL) 500 mg tabletTake 1 tablet by mouth two times a day for 7 days.Disp: 14 tabletRfl: 0 Prescriptions as of 01/25/2024 - metroNIDAZOLE (FLAGYL) 500 mg tablet Take 1 tablet by mouth two times a day for 7 days. - LORazepam (ATIVAN) 0.5 mg 0.5 mg as needed. - ibuprofen (ADVIL ORAL) Take by mouth. - triamcinolone (KENALOG) 0.1 % lotion Apply to affected area as needed. - Estradiol (YUVAFEM) 10 mcg vaginal tablet Use 1 tablet vaginally two times a week. - omeprazole (PRILOSEC) 40 mg capsule - potassium chloride 20 mEq TbER - metFORMIN ER (GLUCOPHAGE XR) 500 mg 24 hr tablet Take 1,000 mg by mouth two times a day. - SYNTHROID 75 mcg tablet - hydroCHLOROthiazide 25 mg tablet - rosuvastatin (CRESTOR) 5 mg tablet Take 5 mg by mouth once daily. - aspirin, enteric coated (ASPIRIN, ENTERIC COATED) 81 mg EC tablet Take 81 mg by mouth once daily. - omega3/dha/epa/fish oil/vit D3 (OMEGA-3 PLUS VITAMIN D3 ORAL) Take by mouth. - clobetasol (TEMOVATE) 0.05 % cream Apply to affected area 1-3x/week for maintenance. - ATENOLOL 50 MG TAB Take 25 mg by mouth once daily. 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 Encounter Status:Closed by BING KELLOGG on 01/25/24 [facility] BACTERIAL VAGINOSIS [facility] 1 Lactobacillus crispatus+gasseri+estuardo enii + Gardnerella vaginalis + Atopobium vaginae rRNA LACI+probe Ql (Vag fld) Positive Abnormal Negative for bacterial vaginosis [facility] Comment on above: Order Comment: Speci men Type: SWABOrdering Facility: [facility] Address: [address] [place] [address] Performed By: #### C VTV, BVAMP ####[facility] [id number] [place] [address] [place] CINDY/TRICHOMONAS NAATon 1 C. glabrata RNA LACI+probe Ql (Vag fld) Negative Normal Negative for Cindy glabrata [facility] Comment on above: Order Comment: Speci men Type: SWABOrdering Facility: [facility] Address: [address] [place] [address] Performed By: #### C VTV, BVAMP ####[facility] [id number] [place] [address] [place] Cindy sp DNA LACI+probe Ql (Vag fld) Negative Normal Negative for Cindy species [facility] Comment on above: Order Comment: Speci men Type: SWABOrdering Facility: [facility] Address: [address] [place] [address] Performed By: #### C VTV, BVAMP ####[facility] [id number] [place] [address] [place] T. vaginalis DNA LACI+probe Ql (Unsp spec) Negative Normal Negative for Trichomonas vaginalis by amplification [facility] Comment on above: Order Comment: Speci men Type: SWABOrdering Facility: [facility] Address: [address] [place] [address] Performed By: #### C VTV, BVAMP ####[facility] [id number] [place] [address] [place] CNOVon 01-22-2024 CNOV Office Visit (OBGYWM ) GEMA ROMERO ([id number]) 1950 F Date Time Provider Department 01/22/24 1:00 PM CHRISTEL SANCHES OBGYWM During your visit today, we recorded the following information about you: Blood pressure Weight Height 134/80 73.9 kg 1.545 m Christel Sanches APRN.CNP 01/22/2024 1:37 PM Signed Animal Science Professor offered: Patient declinesArlene Ribeiro is a 73 year old who presents for an annual gynecologic exam with complaints, vulvar irritation. Postmenopausal: Yes HRT use: Yes, unsure How lon yr. Last Pap: 08/04/2005 normal HPV: 08/01/2005 negative History of abnormal pap: No Last mammogram: 2022 normal @ [facility] History of abnormal mammogram: Yes breast biopsy Sexually active: No 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 LMP: Postmenopausal Age at Menarche: Age at First : Age at Menopause: Web Operations Administrator History Comments: Sexual Activity: Not Currently; Male; menopausal/tubal ligation Contraception: Surgical PAST MEDICAL HISTORY Diagnosis Date Other and unspecified hyperlipidemia Prediabetes Symptomatic menopausal or female climacteric states Unspecified essential hypertension Unspecified symptom associated with female genital organs 04/20/2002 vulvadynia PAST SURGICAL HISTORY Procedure Laterality Date BIOPSY BREAST OPEN INCISIONAL BX BREAST NEEDLE CORE W/O IMAGING GUIDANCE SPX DILATION AND CURETTAGE DXAND/THER NONOBSTETRIC LIG/TRNSXJ FLP TUBE ABDL/VAG APPR UNI/BI FAMILY HISTORY Problem Relation Age of Onset Coronary Artery Disease Father Colon Cancer Sister Heart disease Brother Diabetes Maternal Grandmother SOCIAL HISTORY Social History Tobacco Use Smoking status: Never Smokeless tobacco: Never Vaping Use Vaping status: Never Used Substance Use Topics Alcohol use: No Drug use: No REVIEW OF SYSTEMS Abdomen: No abdominal pain, nausea, vomiting, diarrhea, or constipation. No bloating, early satiety, indigestion, or increased flatulence. Bladder: No dysuria, gross hematuria, urinary frequency, urinary urgency, or incontinence Breast: No breast lumps, nipple d/c, overlying skin changes, redness or skin retraction Allergies and current medication updated:Yes SENSITIVE EXAM: The sensitive examination was discussed with the Patient or Patient's Authorized Table Games Supervisor. As applicable, any other physician, advance practice provider, medical student, or other health professional student that will be observing or involved in the sensitive examination for educational or training purposes was discussed with the Patient or Authorized Table Games Supervisor. The Patient or Authorized Table Games Supervisor has agreed to proceed with the sensitive examination. (Sensitive examination includes inspection and/or palpation of the breasts, pelvis, prostate and anorectal regions). EXAM: BP 134/80 Ht 5' .839 (1.55m) Wt 163 lb (73.9kg) BMI 30.97 kg/(m2). GENERAL: pleasant, female in no apparent distress HEENT: Normocephalic, atraumatic, mucus membranes moist, and no lesions NECK: Supple, full range of motion, no adenopathy, and thyroid normal DERMATOLOGY: Normal, without lesions, non-icteric, and non-hirsute BREAST: soft, non-tender, symmetric, no dominant mass, normal nipple-areolar complex, no lymphadenopathy, and no nipple discharge CHEST: Normal inspiratory effort ABDOMEN: soft, non-tender, and no masses PELVIC: external genitalia normal, normal Bartholin's glands, urethra, Smyr[place]'s glands, no cervical lesions, physiologic discharge present, normal appearing perineal body and perianal region, red discoloration at the 5 o'clock position on the inner left labia BIMANUAL: uterus normal size, shape and consistency, no adnexal masses, and non-tender RECTOVAGINAL: deferred. NEURO: alert and oriented x3,exam grossly non-focal EXTREMITIES: normal ASSESSMENT/PLAN: 1) Health maintenance: Pap/HPV screening no longer needed Mammogram ordered for [facility] Nutrition, exercise and routine health maintenance exams reviewed. Calcium/Vitamin D supplementation information provided. 2) Follow up one year or sooner as needed Pt is to schedule appt for vulvar biopsy Christel Sanches APRN.BAG MACHINE OPERATOR Allergies As of Date: 01/22/2024 Noted Allergy Reaction AZITHROMYCIN 08/18/2002 2 - Rash Comments: z pack nausea ERYTHROMYCIN BASE 08/18/2002 Comments: nausea Date Reviewed: 01/22/2024 Reviewed by: Christel Sanches APRN.BAG MACHINE OPERATOR - Fully Assessed Reason for Visit: Well Woman [1463] Primary Visit Diagnosis:Encounter for gynecological examination (general) (routine) without abnormal findings [Z01.419] Other Visit Diagnoses:Encounter for screening mammogram for breast cancer [Z12.31] Vulvar irritation [N90.89] Order(s):CINDY/TRIC HOMONAS NAAT [SQCVTV] Order #: [id number] BACTERIAL VAGINOSIS NAAT [SQBVAMP] Order #: 23 (more content not included)... Normal [facility] CBC + DIFFon 01-18-2024 Baso # 0.03 x10EE3/UL Normal 0.00 - 0.10 [facility] Comment on above: Performed By: #### 2 [id number] #### [place] [id number] Basophils/100 WBC (Bld) 0.4 % Normal 0.0 - 2.0 [facility] Comment on above: Performed By: #### 2 29866 #### [place] [address] CBC + DIFF Normal [facility] Comment on above: Result Comment: CBC- COMPLETE BLOOD COUNT Performed By: #### 2 88995 #### [facility],[address] [place] [address] EO # 0.31 x10EE3/UL Normal 0.00 - 0.50 [facility] Comment on above: Performed By: #### 2 34719 #### [facility],[address] [place] [address] 17925 Eosinophils/100 WBC (Bld) 4.6 % Normal 0.0 - 7.0 [facility] Comment on above: Performed By: #### 2 17325 #### [facility],[address],[place] [address] Erythrocyte distribution width (RBC) [Ratio] 18.3 % High 12.0 - 15.6 [facility] Comment on above: Performed By: #### 2 13667 #### [facility],[address] [place], [place] [id number] Hematocrit (Bld) [Volume fraction] 36.0 % Normal 34.0 - 46.0 [facility] Comment on above: Performed By: #### 2 00759 #### [facility],[address] [place], [place] [address] Hemoglobin (Bld) [Mass/Vol] 11.7 g/dL Low 12.0 - 16.0 [facility] Comment on above: Performed By: #### 2 44553 #### [facility],[address] [place], [place] [address] Lymph # 2.12 x10EE3/UL Normal 0.80 - 2.80 [facility] Comment on above: Performed By: #### 2 09878 #### [facility],[address] [place], [place] [address] Lymphocytes/100 WBC (Bld) 31.7 % Normal 20.0 - 45.0 [facility] Comment on above: Performed By: #### 2 02454 #### [facility],[address] [place] [address]3089 MANUAL DIFF N/A Normal [facility] Comment on above: Performed By: #### 2 42281 #### [facility],[address] [place] [address] 30585 MCH (RBC) [Entitic mass] 24 pg Low 27 - 33 [facility] Comment on above: Performed By: #### 2 08554 #### [facility],[address] [place] [address]5500 MCHC 32 X10 3 Normal 32 - 36 [facility] Comment on above: Performed By: #### 2 81813 #### [facility],[address] [place] [address] MCV (RBC) [Entitic vol] 74 fL Low 80 - 99 [facility] Comment on above: Performed By: #### 2 30156 #### [facility],[address] [place] [address] [address] [place] # 0.51 x10EE3/UL Normal 0.20 - 1.00 [facility] Comment on above: Performed By: #### 2 77080 #### [facility],[address] [place] [address]9564 MONOS % 7.7 % Normal 0.0 - 10.0 [facility] Comment on above: Performed By: #### 2 80744 #### [facility],[address] [place], [place] [address] Morphology Aniket (Bld) [Interp] N/A Normal [facility] Comment on above: Performed By: #### 2 50101 #### [facility],[address] [place] [address] Neut # 3.71 x10EE3/UL Normal 1.50 - 7.10 [facility] Comment on above: Performed By: #### 2 92716 #### [facility],[address] [place], [place] [address] Neutrophils/100 WBC (Bld) 55.6 % Normal 46.0 - 76.0 [facility] Comment on above: Performed By: #### 2 27692 #### [facility],[address] [place], [place] [address] PLATELET 340 x10EE3/UL Normal 150 - 450 [facility] Comment on above: Performed By: #### 2 78560 #### [facility],[address] [place] [address] 24741 Platelet mean volume (Bld) [Entitic vol] 9.3 fL Normal 6.6 - 10.5 [facility] Comment on above: Result Comment: AUTO MATED DIFFERENTIAL Performed By: #### 2 70548 #### [facility],[address] [place] [address] 33460 RBC 4.86 x 10EE6/UL Normal 4.10 - 5.30 [facility] Comment on above: Performed By: #### 2 75453 #### [facility],[address] [place] [address] 16340 WBC 6.7 x 10EE3/UL Normal 4.5 - 10.8 [facility] Comment on above: Performed By: #### 2 80548 #### [facility],[address] [place] [address] 28234 CMP with eGFRon 01-18-2024 AGE 73 years Normal [facility] Comment on above: Performed By: #### 2 49441 #### [facility],[address] [place] [address] 08749 Albumin [Mass/Vol] 3.3 g/dL Low 3.4 - 5.0 [facility] Comment on above: Performed By: #### 2 62896 #### [facility],[address] [place] [address] 42604 Albumin/Globulin [Mass ratio] 0.8 {ratio} Low 0.9 - 1.6 [facility] Comment on above: Performed By: #### 2 53130 #### [facility],[address] [place] [address] 87962 ALK PHOS 63 U/L Normal 46 - 116 [facility] Comment on above: Performed By: #### 2 45605 #### [facility],[address] [place] [address] 59242 ALT [Catalytic activity/Vol] 26 U/L Normal 16 - 63 [facility] Comment on above: Performed By: #### 2 44502 #### [facility],[address] [place] [address] 22693 Anion gap [Moles/Vol] 11 mmol/L Normal 10 - 20 [facility] Comment on above: Performed By: #### 2 39293 #### [facility],[address] [place] [address] 22341 AST [Catalytic activity/Vol] 17 U/L Normal 13 - 39 [facility] Comment on above: Performed By: #### 2 77348 #### [facility],[address] [place] [address] 88174 B/C RATIO 22 ratio Normal 0 - 30 [facility] Comment on above: Performed By: #### 2 38411 #### [facility],[address] [place] [address] 37355 Bilirubin [Mass/Vol] 0.4 mg/dL Normal 0.2 - 1.0 [facility] Comment on above: Performed By: #### 2 07402 #### [facility],[address] [place] [address] 24423 Calcium [Mass/Vol] 8.9 mg/dL Normal 8.5 - 10.1 [facility] Comment on above: Performed By: #### 2 96363 #### [facility],[address] [place] [address] 37246 Chloride [Moles/Vol] 102 mmol/L Normal 98 - 107 [facility] Comment on above: Performed By: #### 2 12955 #### [facility],[address] [place] [address] 15733 CMP with eGFR Normal [facility] Comment on above: Result Comment: COMP REHENSIVE METABOLIC PANEL Performed By: #### 2 58451 #### [facility],[address] [place] [address] 43222 CO2 [Moles/Vol] 26.8 mmol/L Normal 21.0 - 32.0 [facility] Comment on above: Performed By: #### 2 70087 #### [facility],[address] [place] [address] 86265 Creatinine [Mass/Vol] 0.97 mg/dL Normal 0.55 - 1.02 [facility] Comment on above: Performed By: #### 2 50044 #### [facility],[address] [place] [address] 15919 eGFR 57 ML/MINUTE Low 60 - 999 [facility] Comment on above: Performed By: #### 2 37542 #### [facility],[address] [place] [address] 73674 GFR/1.73 sq M.predicted among non-blacks MDRD (S/P/Bld) [Vol rate/Area] mL/min/{1.73_m2} Normal 60 - 999 [facility] Comment on above: Result Comment: ACCO RDING TO THE NATIONAL KIDNEY DISEASE EDUCATION PROGRAM(NKDE), A NORMAL eGFR IS A VALUE GREATER THAN OR EQUAL TO 60 ML/MIN/1.73 SQ METERS. CHRONIC KIDNEY DISEASE: <60mL/MIN/1.73 SQ METERS KIDNEY FAILURE: <15mL/MIN/1.73 SQ METERS THIS TEST SHOULD ONLY BE USED FOR PATIENTS 18 YEARS OF AGE AND OLDER. Performed By: #### 2 27836 #### [facility],[address] [place] [address] 97551 Globulin (S) [Mass/Vol] 4.4 g/dL High 1.5 - 3.8 [facility] Comment on above: Performed By: #### 2 22264 #### [facility],[address] [place] [address] 82436 Glucose [Mass/Vol] 109 mg/dL High 74 - 106 [facility] Comment on above: Performed By: #### 2 26176 #### [facility],[address] [place] [address] 32759 Potassium [Moles/Vol] 3.4 mmol/L Low 3.5 - 5.1 [facility] Comment on above: Performed By: #### 2 06428 #### [facility],[address] [place] [address] 74769 Protein [Mass/Vol] 7.7 g/dL Normal 6.4 - 8.2 [facility] Comment on above: Performed By: #### 2 34735 #### [facility],[address] [place] [address] 06003 Sodium [Moles/Vol] 136 mmol/L Normal 136 - 145 [facility] Comment on above: Performed By: #### 2 [id number] #### [facility],[address] [place] [address] 44657 Urea nitrogen [Mass/Vol] 21 mg/dL High 7 - 18 [facility] Comment on above: Performed By: #### 2 [id number] #### [facility],[address] [place] [address] 71592 HEMOGLOBIN A1C (POM)on 01-17 Glucose [Mass/Vol] 142.7 mg/dL High 0.0 - 0.0 [facility] Comment on above: Result Comment: BLDo HEMOGLOBIN A1C REFERENCE RANGESBLDo Suggested Diagnosis HbA1c(%) HbA1C (mmol/mol Diabetic >/=6.5 >/=48 Prediabetes 5.7 - 6.4 39 - 47 Normal <5.7 <39 Performed By: #### 2 [id number] ####[facility],[address] [place] [address] 00746 HbA1c (Bld) [Mass fraction] 6.6 % High 0.0 - 6.5 [facility] Comment on above: Performed By: #### 2 [id number] ####[facility],[address] [place] [address] 90100 LIPID PROFILEon 01-18-2024 Cholesterol [Mass/Vol] 216 mg/dL Normal 0 - 240 [facility] Comment on above: Performed By: #### 2 [id number] #### [facility],[address] [place] [address] 24285 Cholesterol in HDL [Mass/Vol] 53 mg/dL Normal 40 - 60 [facility] Comment on above: Performed By: #### 2 [id number] #### [facility],[address] [place] [address] 30392 Cholesterol in LDL [Mass/Vol] 119 mg/dL Normal 0 - 129 [facility] Comment on above: Performed By: #### 2 55276 #### [facility],[address] [place] [address] 73557 Cholesterol.total/Chol esterol in HDL [Mass ratio] 4.1 {ratio} Normal 0.0 - 5.0 [facility] Comment on above: Performed By: #### 2 51049 #### [facility],[address] [place] [address] 68857 Lipid 1996 panel Normal [facility] Comment on above: Result Comment: LIPI D PROFILE Performed By: #### 2 [id number] #### [facility],[address] [place] [address] 45817 Triglyceride [Mass/Vol] 221 mg/dL High 0 - 150 [facility] Comment on above: Performed By: #### 2 71841 #### [facility],[address] [place] [address] 19441 SGOT (AST)on 01-18-2024 AST [Catalytic activity/Vol] 17 U/L Normal 13 - 39 [facility] Comment on above: Performed By: #### 2 [id number] #### [facility],[address] [place] [address] 83994 SGPT (ALT)on 01-18-2024 ALT [Catalytic activity/Vol] 26 U/L Normal 16 - 63 [facility] Comment on above: Performed By: #### 2 72426 ####[facility],[address] [place] [address] 50055 T4-FREE (FREE THYROXINE)on 0 01-18-2024 Free T4 [Mass/Vol] 1.31 ng/dL Normal 0.76 - 1.46 [facility] Comment on above: Result Comment: P otential of falsely elevated results when biotin concentrations are > 10 ng/mL. Performed By: #### 2 [id number] ####[facility],[address] [place] [address] 59129 TSHon 01-18-2024 TSH Qn 2.43 m[IU]/L Normal 0.35 - 3.74 [facility] Comment on above: Performed By: #### 2 88464 ####[facility],[address] [place] [address] 98559 VITAMIN D, 25 HYDROXYon 12-21 VitD 52.10 ng/mL Normal 30.00 - 100 [facility] Comment on above: Result Comment: 25-O HD3 indicates both endogenous production and supplementation. 25-OHD2 is an indicator of exogenous sources, such as diet or supplementation. Therapy is based on measurement of Total 25-OHD, with levels <20 ng/mL indicative of Vitamin D deficiency, while levels between 20 ng/mL and 30 ng/mL suggest insufficiency. Optimal levels are >=30ng/mL. Vitamin D, 25-OH D3 Not Established Vitamin D, 25-OH D2 Not Established Performed By: #### 2 [id number] ####[address] [address] [facility] 12-07-2023 CANDYN Telephone (DUSTINGYWJayne) GEMA ROMERO ([id number]) 1950 F Date Time Provider Department 12/07/23 FUENTES COTTON During your visit today, we recorded the following information about you: Fuentes Cotton APRN.BAG MACHINE OPERATOR 12/07/2023 9:52 AM Signed Please notify patient: You tested positive for bacterial vaginosis. This is an imbalance of your normal bacteria. Your partner does not need treated. I will send a prescription for Flagyl 500mg by mouth twice a day for 7 days. 1) No alcohol during treatment and for 72 hours after last dose. 2) No intercourse during treatment. 3) Probiotic by mouth once daily for 30 days or as needed. Please let me know if you have any questions. Fuentes Cotton APRN.Shaniqua Calzada RN 12/07/2023 10:17 AM Signed Patient notified of results, verbalizes understanding of instructions. Shaniqua Saunders RN Allergies As of Date: 12/07/2023 Noted Allergy Reaction AZITHROMYCIN 08/18/2002 2 - Rash Comments: z pack nausea ERYTHROMYCIN BASE 08/18/2002 Comments: nausea Date Reviewed: 12/04/2023 Reviewed by: Kim Rios MA - Fully Assessed Reason for Visit: Results [95] Primary Visit Diagnosis:Bacterial vaginosis [N76.0, B96.89] Order(s):metroNIDAZOL E (FLAGYL) 500 mg tabletTake 1 tablet by mouth two times a day for 7 days.Disp: 14 tabletRfl: 0 Prescriptions as of 12/07/2023 - metroNIDAZOLE (FLAGYL) 500 mg tablet Take 1 tablet by mouth two times a day for 7 days. - LORazepam (ATIVAN) 0.5 mg 0.5 mg as needed. - cloNIDine HCl (CATAPRES) 0.1 mg tablet Take 0.1 mg by mouth as needed. - ibuprofen (ADVIL ORAL) Take by mouth. - triamcinolone (KENALOG) 0.1 % lotion Apply to affected area as needed. - Estradiol (YUVAFEM) 10 mcg vaginal tablet Use 1 tablet vaginally two times a week. - Estradiol (YUVAFEM) 10 mcg vaginal tablet Use 1 tablet vaginally once daily for 7 days. - omeprazole (PRILOSEC) 40 mg capsule - potassium chloride 20 mEq TbER - metFORMIN ER (GLUCOPHAGE XR) 500 mg 24 hr tablet Take 1,000 mg by mouth two times a day. - SYNTHROID 75 mcg tablet - hydroCHLOROthiazide 25 mg tablet - rosuvastatin (CRESTOR) 5 mg tablet Take 5 mg by mouth once daily. - aspirin, enteric coated (ASPIRIN, ENTERIC COATED) 81 mg EC tablet Take 81 mg by mouth once daily. - ubidecarenone Q-10 (CO Q-10) 10 mg cap Take by mouth two times a day. - omega3/dha/epa/fish oil/vit D3 (OMEGA-3 PLUS VITAMIN D3 ORAL) Take by mouth. - vit C/vit E acet/lutein/min (OCUVITE LUTEIN ORAL) Take by mouth. - clobetasol propionate/emoll (CLOBETASOL E TOPICAL) Apply to affected area. - clobetasol (TEMOVATE) 0.05 % cream Apply to affected area 1-3x/week for maintenance. - ATENOLOL 50 MG TAB Take 25 mg by mouth once daily. 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 Encounter Status:Closed by SHANIQUA SAUNDERS on 12/07/23 Normal [facility] BACTERIAL VAGINOSIS NAATon 0 12-04-2023 Lactobacillus crispatus+gasseri+estuardo enii + Gardnerella vaginalis + Atopobium vaginae rRNA LACI+probe Ql (Vag fld) Positive Abnormal Negative for bacterial vaginosis [facility] Comment on above: Order Comment: Speci men Type: SWABOrdering Facility: [facility] Address: [address] [place] [address] Performed By: #### C VTV, BVAMP ####[facility] LABCLIA [id number] [facility] [id number] [address] [place] CINDY/TRICHOMONAS NAATon 0 12-04-2023 C. glabrata RNA LACI+probe Ql (Vag fld) Negative Normal Negative for Cindy glabrata [facility] Comment on above: Order Comment: Speci men Type: SWABOrdering Facility: [facility] Address: [address] [place] [address] Performed By: #### C VTV, BVAMP ####[facility] [id number] [place] [address] [place] Cindy sp DNA LACI+probe Ql (Vag fld) Negative Normal Negative for Cindy species [facility] Comment on above: Order Comment: Speci men Type: SWABOrdering Facility: [facility] Address: [address] [place] [address] Performed By: #### C VTV, BVAMP ####[facility] [id number] [place] [address] [place] T. vaginalis DNA LACI+probe Ql (Unsp spec) Negative Normal Negative for Trichomonas vaginalis by amplification [facility] Comment on above: Order Comment: Speci men Type: SWABOrdering Facility: [facility] Address: [address] [place] [address] Performed By: #### C VTV, BVAMP ####[facility] LABCLIA [id number] [place] [address] [place] CNOVon 12-04-2023 CNOV Office Visit (OBGYWM ) GEMA ROMERO ([id number]) 1950 F Date Time Provider Department 12/04/23 2:15 PM CHRISTEL SANCHES OBGYWJayne During your visit today, we recorded the following information about you: Blood pressure Weight 134/80 76.7 kg Christel Sanches, CLAYTON.BAG MACHINE OPERATOR 12/04/2023 4:01 PM Signed Animal Science Professor offered: Patient declines. Gema Romero is a 72 year old female who presents for problem visit for vaginal itching. HPI: Patient is here for vaginal itching. She does not notice any abnormal discharge or fowl odor. She states that the itching is internally and external. Patient also states her clitoris is itching and swollen as well, she also has a little pain in this area as well. 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 LMP: Postmenopausal Age at Menarche: Age at First : Age at Menopause: Web Operations Administrator History Comments: Sexual Activity: Not Currently; Male; menopausal/tubal ligation Contraception: Surgical PAST MEDICAL HISTORY No date: Other and unspecified hyperlipidemia No date: Prediabetes No date: Symptomatic menopausal or female climacteric states No date: Unspecified essential hypertension 04/20/2002: Unspecified symptom associated with female genital organs Comment: vulvadynia PAST SURGICAL HISTORY No date: BIOPSY BREAST OPEN INCISIONAL No date: BX BREAST NEEDLE CORE W/O IMAGING GUIDANCE SPX No date: DILATION AND CURETTAGE DXAND/THER NONOBSTETRIC No date: LIG/TRNSXJ FLP TUBE ABDL/VAG APPR UNI/BI FAMILY HISTORY Problem Relation Age of Onset Coronary Artery Disease Father Colon Cancer Sister Heart disease Brother Diabetes Maternal Grandmother Social History Tobacco Use Smoking status: Never Smokeless tobacco: Never Vaping Use Vaping Use: Never used Substance Use Topics Alcohol use: No Drug use: No Current Outpatient Medications Medication Sig LORazepam (ATIVAN) 0.5 mg 0.5 mg as needed. cloNIDine HCl (CATAPRES) 0.1 mg tablet Take 0.1 mg by mouth as needed. ibuprofen (ADVIL ORAL) Take by mouth. triamcinolone (KENALOG) 0.1 % lotion Apply to affected area as needed. omeprazole (PRILOSEC) 40 mg capsule potassium chloride 20 mEq TbER metFORMIN ER (GLUCOPHAGE XR) 500 mg 24 hr tablet Take 1,000 mg by mouth two times a day. SYNTHROID 75 mcg tablet hydroCHLOROthiazide 25 mg tablet rosuvastatin (CRESTOR) 5 mg tablet Take 5 mg by mouth once daily. aspirin, enteric coated (ASPIRIN, ENTERIC COATED) 81 mg EC tablet Take 81 mg by mouth once daily. ubidecarenone Q-10 (CO Q-10) 10 mg cap Take by mouth two times a day. omega3/dha/epa/fish oil/vit D3 (OMEGA-3 PLUS VITAMIN D3 ORAL) Take by mouth. Estradiol (YUVAFEM) 10 mcg vaginal tablet Use 1 tablet vaginally two times a week. clobetasol (TEMOVATE) 0.05 % cream Apply to affected area 1-3x/week for maintenance. ATENOLOL 50 MG TAB Take 25 mg by mouth once daily. vit C/vit E acet/lutein/min (OCUVITE LUTEIN ORAL) Take by mouth. (Patient not taking: Reported on 12/04/2023) clobetasol propionate/emoll (CLOBETASOL E TOPICAL) Apply to affected area. (Patient not taking: Reported on 12/04/2023) No current facility-administered medications for this visit. Allergies As of Date: 12/04/2023 Allergen Noted Reaction AZITHROMYCIN 08/18/2002 Rash ERYTHROMYCIN BASE 08/18/2002 Fully Assessed 12/04/2023 REVIEW OF SYSTEMS Expanded ROS: N/A Allergies and current medication updated:Yes EXAM: BP 134/80 Wt 169 lb (76.7kg) GENERAL: pleasant, female in no apparent distress HEENT: Normocephalic, atraumatic, mucus membranes moist, and no lesions CHEST: Normal inspiratory effort PELVIC: redness to the labia NEURO: alert and oriented x3,exam grossly non-focal EXTREMITIES: normal ASSESSMENT/PLAN: 1. Vaginal irritation - ICD9: 623.9, ICD10: N89.8 Will notify patient of test results. - CINDY/TRICHOMONAS NAAT - BACTERIAL VAGINOSIS NAAT Yuvafem daily x 7 days, then 2x/wk Clobetasol 2x/day x7 days then 2-3x/wk Christel Sanches APRN.CANDY Medical Decision Making: Problems: Low: Acute, uncomplicated illness or injury Data: Unique test(s) ordered: 2 Risk: Moderate: Drug management Medical Decision Making Level: 3 - Low Allergies As of Date: 12/04/2023 Noted Allergy Reaction AZITHROMYCIN 08/18/2002 2 - Rash Comments: z pack nausea ERYTHROMYCIN BASE 08/18/2002 Comments: nausea Date Reviewed: 12/04/2023 Reviewed by: Kim Rios MA - Fully Assessed Primary Visit Diagnosis:Vaginal irritation [N89.8] Order(s):Estradiol (YUVAFEM) 10 mcg vaginal tabletUse 1 tablet vaginally two times a week.Disp: 24 tabletRfl: 3 Estradiol (YUVAFEM) 10 mcg vaginal tabletUse 1 tablet vaginally once daily for 7 days.Disp: 7 tabletRfl: 0 CINDY/TRICHOMONAS NAAT [SQCVTV] Order #: [id number]. #:[id number] BACTERIAL VAGINOSIS NAAT [SQBVAMP] Order #: [id number] (more content not included)... Normal [facility] TCANCon 06-26-2022 Test cancelled: cbc Normal [facility] (MD) Comment on above: Performed By: #### T CAN #### [facility] [address] [place] [address] Basophil percentageon 2021 Chloride [Moles/Vol] 103 mmol/L 98-107 [facility] Work Phone: Glucose [Mass/Vol] 128 mg/dL 74-106 [facility] Work Phone: Comment on above: Fasting Glucose resu lt greater than or equal to 126 mg/dL suggests DIABETES MELLITUS per A.D.A. criteria. Potassium [Moles/Vol] 3.6 mmol/L 3.5-5.1 [facility] Work Phone: Sodium [Moles/Vol] 138 mmol/L 136-145 [facility] Work Phone: Laboratory - Chemistry and C hemistry - challengeon 04-01-2022 CO2 [Moles/Vol] 26.0 mmol/L 21.0-32.0 [facility] Work Phone: Urea nitrogen/Creatinine [Mass ratio] 23.8 mg/mg 10-20 [facility] Work Phone: No Panel Informationon 04-01 Estimated GFR (MDRD) Amer 74 mL/min >60 [facility] Work Phone: Comment on above: GFR Calc Estimated GFR (MDRD) Non-Af Amer 61 mL/min >60 [facility] Work Phone: Comment on above: Non- GFR Calc Serum or plasma calcium nir urement (mass/volume)on 04-01-2022 Calcium [Mass/Vol] 9.3 mg/dL 8.5-10.1 [facility] Work Phone: Serum or plasma creatinine m easurement (mass/volume)on 04-01-2022 Creatinine [Mass/Vol] 0.96 mg/dL 0.55-1.02 [facility] Work Phone: Comment on above: The validity of the calculated GFR & GFRAA in patients over 70 years has not been determined. Clinical correlation is essential. Serum or plasma urea nitroge n measurement (mass/volume)on 04-01-2022 Urea nitrogen [Mass/Vol] 23 mg/dL 7-18 [facility] Work Phone: Thin prep Papanicolaou smear with manual screeningon 04-01-2022 Thin prep Papanicolaou smear with manual screening 9 - [facility] Work Phone: Hemoglobin A1con 11-07-2020 Glucose [Mass/Vol] 131 mg/dL Normal [facility] Comment on above: Performed By: #### H BA1C #### [facility] Routine Lab [address], [place] [address] HbA1c (Bld) [Mass fraction] 6.2 % High 4.3-5.6 [facility] Comment on above: Performed By: #### H BA1C #### [facility] [address], [place] [address] Hemoglobin A1con 07-07-2020 Glucose [Mass/Vol] 137 mg/dL Normal [facility] Comment on above: Performed By: #### H BA1C #### [facility] [address], [place] [address] HbA1c (Bld) [Mass fraction] 6.4 % High 4.3-5.6 [facility] Comment on above: Performed By: #### H BA1C #### [facility] [address] [place], [place] [address] Hemoglobin A1con 03-02-2020 Glucose [Mass/Vol] 131 mg/dL Normal [facility] Comment on above: Performed By: #### H BA1C #### [facility] [address], [place] [address] HbA1c (Bld) [Mass fraction] 6.2 % High 4.3-5.6 [facility] Comment on above: Performed By: #### H BA1C #### [facility] [address], [place] [address] Vital Signs Date Time Vital Sign Value Performing Clinician Facility 11-08-2024 07:40-0400 Body height 154.[address] Poly Sutherland MD Work Phone: [facility] 11-08-2024 07:40-0400 Body mass index (BMI) [Ratio] 30.6 kg/m2 Dr. Poly Sutherland MD Work Phone: [facility] 11-08-2024 07:40-0400 Body weight 73.[address] Poly Sutherland MD Work Phone: [facility] 11-08-2024 07:40-0400 Diastolic blood pressure 86 mm[Hg] Dr. Poly Sutherland MD Work Phone: [facility] 11-08-2024 07:40-0400 Heart rate 78 /min Dr. Poly Sutherland MD Work Phone: [facility] 11-08-2024 07:40-0400 Respiratory rate 18 /min Dr. Poly Sutherland MD Work Phone: [facility] 11-08-2024 07:40-0400 SaO2% (BldA) [Mass fraction] 96 % Dr. Poly Sutherland MD Work Phone: [facility] 11-08-2024 07:40-0400 Systolic blood pressure 166 mm[Hg] Dr. Poly Sutherland MD Work Phone: [facility] 09-19-2024 07:03-0400 Body height 154.[address] Poly Sutherland MD Work Phone: [facility] 09-19-2024 07:03-0400 Body mass index (BMI) [Ratio] 30.9 kg/m2 Dr. Poly Sutherland MD Work Phone: [facility] 09-19-2024 07:03-0400 Body weight 74.[address] Poly Sutherland MD Work Phone: [facility] 09-19-2024 07:03-0400 Diastolic blood pressure 81 mm[Hg] Dr. Poly Sutherland MD Work Phone: [facility] 09-19-2024 07:03-0400 Heart rate 83 /min Dr. Poly Sutherland MD Work Phone: [facility] 09-19-2024 07:03-0400 Respiratory rate 18 /min Dr. Poly Sutherland MD Work Phone: [facility] 09-19-2024 07:03-0400 SaO2% (BldA) [Mass fraction] 92 % Dr. Poly Sutherland MD Work Phone: [facility] 09-19-2024 07:03-0400 Systolic blood pressure 129 mm[Hg] Dr. Poly Sutherland MD Work Phone: [facility] 08-05-2024 07:59-0400 Body mass index (BMI) [Ratio] 30.77 kg/m2 Christel Simpson RELATIONSHIP BANKER.BAG MACHINE OPERATOR Work Phone: [facility] 08-05-2024 07:59-0400 Body weight 73.48 kg Christel Simpson RELATIONSHIP BANKER.BAG MACHINE OPERATOR Work Phone: [facility] 08-05-2024 07:59-0400 Diastolic blood pressure 78 mm[Hg] Christel Simpson RELATIONSHIP BANKER.BAG MACHINE OPERATOR Work Phone: [facility] 08-05-2024 07:59-0400 Systolic blood pressure 126 mm[Hg] Christel Simpson RELATIONSHIP BANKER.BAG MACHINE OPERATOR Work Phone: [facility] 07-11-2024 09:11-0400 Blood Pressure Location GABRIELLE ZIMMERMAN [facility] 07-11-2024 09:11-0400 Body height 154.9 cm GABRIELLE ZIMMERMAN [facility] 07-11-2024 09:11-0400 Body temperature 98.42 [degF] GABRIELLE ZIMMERMAN [facility] 07-11-2024 09:11-0400 Body weight 72.5 kg GABRIELLE ZIMMERMAN [facility] 07-11-2024 09:11-0400 Body weight 30.22 kg/m2 GABRIELLEEDEL ZIMMERMAN [facility] 07-11-2024 09:11-0400 Diastolic Blood Pressure Non-Invasive 67 mm[Hg] GABRIELLE GUZMANERTY [facility] 07-11-2024 09:11-0400 Heart rate 77 /min GABRIELLEEDEL ZIMMERMAN [facility] 07-11-2024 09:11-0400 Respiratory rate 18 /min GABRIELLE ZIMMERMAN [facility] 07-11-2024 09:11-0400 Systolic Blood Pressure Non-Invasive 144 mm[Hg] GABRIELLE GUZMANERTY [facility] 02-19-2024 14:39-0400 Body mass index (BMI) [Ratio] 30.89 kg/m2 Christel Miles RELATIONSHIP BANKER.BAG MACHINE OPERATOR Work Phone: [facility] 02-19-2024 14:39-0400 Body weight 73.75 kg Christel Simpson RELATIONSHIP BANKER.BAG MACHINE OPERATOR Work Phone: [facility] 02-19-2024 14:39-0400 Diastolic blood pressure 76 mm[Hg] Christel Miles RELATIONSHIP BANKER.BAG MACHINE OPERATOR Work Phone: [facility] 02-19-2024 14:39-0400 Systolic blood pressure 130 mm[Hg] Christel Simpson RELATIONSHIP BANKER.BAG MACHINE OPERATOR Work Phone: [facility] 01-22-2024 12:58-0400 Body height 154.5 cm Christel Miles RELATIONSHIP BANKER.BAG MACHINE OPERATOR Work Phone: [facility] 01-22-2024 12:58-0400 Body mass index (BMI) [Ratio] 30.96 kg/m2 Christel Miles RELATIONSHIP BANKER.BAG MACHINE OPERATOR Work Phone: [facility] 01-22-2024 12:58-0400 Body weight 73.94 kg Christel Miles RELATIONSHIP BANKER.BAG MACHINE OPERATOR Work Phone: [facility] 01-22-2024 12:58-0400 Diastolic blood pressure 80 mm[Hg] Christel Miles RELATIONSHIP BANKER.BAG MACHINE OPERATOR Work Phone: [facility] 01-22-2024 12:58-0400 Systolic blood pressure 134 mm[Hg] Christel Simpson RELATIONSHIP BANKER.BAG MACHINE OPERATOR Work Phone: [facility] 12-04-2023 14:20-0400 Body mass index (BMI) [Ratio] 31.93 kg/m2 Christel Miles RELATIONSHIP BANKER.BAG MACHINE OPERATOR Work Phone: [facility] 12-04-2023 14:20-0400 Body weight 76.66 kg Christel Miles RELATIONSHIP BANKER.BAG MACHINE OPERATOR Work Phone: [facility] 12-04-2023 14:20-0400 Diastolic blood pressure 80 mm[Hg] Christel Simpson RELATIONSHIP BANKER.BAG MACHINE OPERATOR Work Phone: [facility] 12-04-2023 14:20-0400 Systolic blood pressure 134 mm[Hg] Christel Miles RELATIONSHIP BANKER.BAG MACHINE OPERATOR Work Phone: [facility] 04-01-2022 11:32-0500 Body height 154.[address] Poly Sutherland Work Phone: [facility] Work Phone: 04-01-2022 11:32-0500 Body mass index (BMI) [Ratio] 32.5 kg/m2 Dr. Poly Sutherland Work Phone: [facility] Work Phone: 04-01-2022 11:32-0500 Body weight 78.[address] Poly Sutherland Work Phone: [facility] Work Phone: 04-01-2022 11:32-0500 Diastolic blood pressure 72 mm[Hg] Dr. Poly Sutherland Work Phone: [facility] Work Phone: 04-01-2022 11:32-0500 Heart rate 64 /min Dr. Poly Sutherland Work Phone: [facility] Work Phone: 04-01-2022 11:32-0500 Respiratory rate 16 /min Dr. Poly Sutherland Work Phone: [facility] Work Phone: 04-01-2022 11:32-0500 Systolic blood pressure 148 mm[Hg] Dr. Poly Sutherland Work Phone: [facility] Work Phone: 10-29-2021 15:41-0400 Body height 154.[address] Poly Sutherland Work Phone: [facility] Work Phone: 10-29-2021 15:41-0400 Body mass index (BMI) [Ratio] 32.1 kg/m2 Dr. Poly Sutherland Work Phone: [facility] Work Phone: 10-29-2021 15:41-0400 Body weight 77.[address] Poly Sutherland Work Phone: [facility] Work Phone: 10-29-2021 15:41-0400 Diastolic blood pressure 74 mm[Hg] Dr. Poly Sutherland Work Phone: [facility] Work Phone: 10-29-2021 15:41-0400 Heart rate 76 /min Dr. Poly Sutherland Work Phone: [facility] Work Phone: 10-29-2021 15:41-0400 Respiratory rate 16 /min Dr. Poly Sutherland Work Phone: [facility] Work Phone: 10-29-2021 15:41-0400 Systolic blood pressure 158 mm[Hg] Dr. Poly Sutherland Work Phone: [facility] Work Phone: Encounters Encounter Date Encounter Type Care Provider Facility Start: 12-02-2024 ambulatory Poly Sutherland Facility:[facility] Start: 11-28-2024 ambulatory Nay Welsh DRUG INSPECTOR Facili ty:[facility] Start: 11-25-2024 ambulatory Jesse Reyna [facility] Start: 11-16-2024 End: 11-16-2024 ambulatory POLY SUTHERLAND Bernardo [facility] Start: 11-08-2024 End: 11-08-2024 Telephone encounter Christel Sanches APRN.BAG MACHINE OPERATOR Work Phone: OB/Gynecology Comment on above: Results Start: 11-08-2024 End: 11-08-2024 Patient encounter procedure Nay Welsh DRUG INSPECTOR-C -[facility] Work Phone: Start: 11-08-2024 End: 11-08-[address] Poly Sutherland MD Work Phone: -[facility] Start: 11-08-2024 End: 11-08-2024 ambulatory Nay Welsh NP Facility:[facility] Start: 10-11-2024 End: 10-11-2024 ambulatory POLY Chang [facility] Start: 09-27-2024 End: 09-27-2024 Telephone encounter Christel Sanches APRN.CNP Work Phone: Maternal Medicine Comment on above: Orders (Repeat Diagn ostic Mammogram) Start: 09-19-2024 End: 09-19-2024 Patient encounter procedure Nay Welsh DRUG INSPECTOR-C -[facility] Work Phone: Start: 09-19-2024 End: 09-19-[address] Poly Sutherland MD Work Phone: [facility] Work Phone: Start: 08-19-2024 End: 08-19-2024 ambulatory POLY SUTHERLAND [facility] Start: 08-08-2024 End: 10-08-2024 Follow-up encounter Christel Sanches APRN.CNP Work Phone: OB/Gynecology Comment on above: Results Start: 08-05-2024 End: 08-05-2024 Patient encounter procedure Christel Sanches APRN.CNP Work Phone: OB/Gynecology Comment on above: Vaginal itching (Kirstie beryl Dx) Start: 08-05-2024 End: 08-05-2024 ambulatory CHRISTEL SANCHES Facility:[facility] Start: 07-11-2024 End: 07-11-2024 ambulatory GABRIELLE ZIMMERMAN NP Facility: Start: 07-11-2024 End: 07-11-2024 Patient encounter procedure GABRIELLE ZIMMERMAN DRUG INSPECTOR [facility] Start: 05-16-2024 End: 05-16-2024 ambulatory POLY SUTHERLAND [facility] Start: 05-10-2024 End: 05-10-[address] [facility] Start: 05-06-2024 End: 05-06-2024 Chart abstracting Christel Sanches APRN.BAG MACHINE OPERATOR Work Phone: OB/Gynecology Comment on above: Mammogram Abnormalit y Start: 05-06-2024 End: 05-06-[address] [facility] Start: 05-04-2024 End: 05-04-2024 Emergency department patient visit YASSER MD [facility] Start: 05-03-2024 End: 05-03-2024 ambulatory POLY CULLEN [facility] Start: 04-28-2024 End: 04-28-2024 ambulatory POLY CULLEN [facility] Start: 04-12-2024 ambulatory [facility] Start: 04-08-2024 ambulatory [facility] Start: 04-08-2024 End: 04-08-20[facility] Start: 04-06-2024 End: 04-06-2024 ambulatory [facility] Facility:[facility] Start: 03-14-2024 End: 03-14-2024 ambulatory POLY CULLEN [facility] Start: 03-02-2024 End: 03-02-2024 Telephone encounter Christel Miles RELATIONSHIP BANKER.BAG MACHINE OPERATOR Work Phone: OB/Gynecology Comment on above: Results Start: 02-29-2024 End: 03-01-2024 Telephone encounter Christel Miles RELATIONSHIP BANKER.BAG MACHINE OPERATOR Work Phone: OB/Gynecology Comment on above: Results Start: 02-22-2024 End: 02-22-2024 Telephone encounter Christel Simpson RELATIONSHIP BANKER.BAG MACHINE OPERATOR Work Phone: OB/Gynecology Comment on above: Results Start: 02-19-2024 End: 02-19-2024 ambulatory CHRISTEL MILES Facility:[facility] Start: 02-19-2024 End: 02-19-2024 Patient encounter procedure Christel Miles RELATIONSHIP BANKER.BAG MACHINE OPERATOR Work Phone: OB/Gynecology Comment on above: Vulvar irritation (P rimary Dx); Vaginal irritation Start: 02-15-2024 End: 02-15-2024 ambulatory POLY CULLEN [facility] Start: 01-23-2024 End: 01-25-2024 Telephone encounter Christel Simpson RELATIONSHIP BANKER.BAG MACHINE OPERATOR Work Phone: [facility] Comment on above: Results Start: 01-22-2024 End: 01-22-2024 ambulatory CHRISTEL SANCHES Facility:[facility] Start: 01-22-2024 End: 01-22-2024 Patient encounter procedure Christel Sanches RELATIONSHIP BANKER.BAG MACHINE OPERATOR Work Phone: OB/Gynecology Comment on above: Encounter for gyneco logical examination (general) (routine) without abnormal findings (Primary Dx); Encounter for screening mammogram for breast cancer; Vulvar irritation Start: 01-22-2024 End: 01-22-2024 Patient encounter status Christel Sanches RELATIONSHIP BANKER.BAG MACHINE OPERATOR Work Phone: [facility] Start: 01-18-2024 End: 01-18-2024 ambulatory POLY SUTHERLAND [facility] Start: 12-07-2023 End: 12-07-2023 Telephone encounter Fuentes Lula RELATIONSHIP BANKER.BAG MACHINE OPERATOR Work Phone: OB/Gynecology Comment on above: Results Start: 12-04-2023 End: 12-04-2023 ambulatory POLY SUTHERLAND Facility:[facility] Start: 12-04-2023 End: 12-04-2023 Patient encounter procedure Christel Sanches RELATIONSHIP BANKER.BAG MACHINE OPERATOR Work Phone: OB/Gynecology Comment on above: Vaginal irritation ( Primary Dx) Start: 04-01-2022 Non-patient / Non-visit Dr. Nathalia Sutherland Work Phone: [facility] Start: 04-01-2022 End: 04-01-[address] Poly Sutherland Work Phone: [facility] Work Phone: Start: 04-01-2022 End: 04-01-[address] Poly Sutherland Work Phone: [facility] Start: 04-01-2022 End: 04-01-[address] Poly Sutherland Work Phone: [facility] Work Phone: Start: 04-01-2022 End: 04-01-[address] Poly Sutherland Work Phone: [facility] Start: 11-19-2021 Non-patient / Non-visit Dr. Nathalia Sutherland Work Phone: [facility] Start: 11-19-2021 End: 11-19-[address] Poly Sutherland Work Phone: [facility] Start: 10-29-2021 End: 10-29-[address] Poly Sutherland Work Phone: [facility] Start: 10-28-2021 Non-patient / Non-visit Dr. Nathalia Sutherland Work Phone: [facility] Procedures Date Procedure Procedure Detail Performing Clinician Start: 08-19-2024 Urinalysis [facility] Comment on above: Result Comment: URIN ALYSIS Performed By: #### [id number] #### [facility],[address] [place] [address] Start: 11-19-2021 Radionuclide imaging of perfusion of myocardium under exercise stress Dr. Poly Sutherland Work Phone: Carpal tunnel syndro me (disorder) GABRIELLE ZIMMERMAN DRUG INSPECTOR Ligation of fallopian tube H DEANDRE ZIMMERMAN NP Plan of Treatment Date Care Activity Detail Author Start: 12-24-2027 RSV Vaccine (1 - 1-d ose 75+ series) RSV Vaccine (1 - 1-dose 75+ series) [facility] Start: 01-01-2026 Diabetes Screening Diabetes Screenin g [facility] Start: 08-05-2025 BP Controlled (<130/80) BP Con trolled (<130/80) [facility] Start: 08-05-2025 zzBP Controlled (<130/80) (Retired) zzBP Controlled (<130/80) (Retired) [facility] Start: 01-24-2025 End: 01-24-2025 Patient encounter procedure 01/24/2025 3:30 PM EDT Office Visit OB/Gynecology [address] [place] [address] Christel Sanches, RELATIONSHIP BANKER.BAG MACHINE OPERATOR [address] [place] [address] Annual OB/Gynecology Comment on above: Annual Start: 12-19-2024 Influenza vaccination Influenza Vacc ine (#1) [facility] Start: 11-08-2024 Evaluation of diagno stic study results [facility] Start: 04-20-2024 Advance Directive Discussion Advance Directive Discussion [facility] Start: 04-20-2024 Medicare Advantage Annual Wellness Visit Medicare Advantage Annual Wellness Visit [facility] Start: 02-08-2024 End: 02-08-2024 Patient encounter procedure 02/08/2024 2:15 PM EDT Office Visit OB/Gynecology [address] [place] [address] Christel Sanches, RELATIONSHIP BANKER.BAG MACHINE OPERATOR [address] [place] [address] Vulva Biopsy OB/Gynecology Comment on above: Vulva Biopsy Start: 01-22-2024 End: 01-22-2024 Patient encounter procedure 01/22/2024 1:00 PM EDT Office Visit OB/Gynecology [address] [place] [address] Christel Sanches, RELATIONSHIP BANKER.BAG MACHINE OPERATOR [address] [place] [address] Annual exam OB/Gynecology Comment on above: Annual exam Start: 12-20-2023 Covid-19 Vaccine () Covid-19 Vaccine ( season) [facility] Start: 12-20-2023 Influenza vaccination Influenza Vacc ine (#1) [facility] Start: 04-20-2023 Advance Directive Discussion Advance Directive Discussion [facility] Start: 12-19-2022 Covid-19 Vaccine ( season) Covid-19 Vaccine ( season) [facility] Start: 2017 Screening for osteoporosis Bone Density Screening [facility] Start: 2012 RSV Vaccine (1 - 1-d ose 60+ series) RSV Vaccine (1 - 1-dose 60+ series) [facility] Start: 08-23-2009 Screening for malign ant neoplasm of breast Mammogram Screening [facility] Start: 1997 Lipid panel Lipid Screening [facility] Start: 1997 Screening for malign ant neoplasm of colon [facility] Start: 12-24-1971 Urine microalbumin profile DTaP,Tdap,Td Vaccine (1 - Tdap) [facility] Start: 1970 Annual 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 [employer]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 Disease Visit Annual PCP Team Chronic Disease Visit [facility] Start: 1970 Anxiety Screening Anxiety Screening [facility] Start: 1970 BP Controlled (<130/80) BP Con trolled (<130/80) [facility] Start: 1970 Depression Screening Depression Scre ening [facility] Start: 1970 Hepatitis C screening Hepatitis C [facility] Ambulatory ECG [facility] BACTERIAL VAGINOSIS NAAT BACTERI AL VAGINOSIS NAAT Lab Routine Vaginal irritation 12/04/2023 2:47 PM EDT [facility] BACTERIAL VAGINOSIS NAAT BACTERI AL VAGINOSIS NAAT Lab Routine Vulvar irritation 01/22/2024 1:46 PM EDT [facility] BACTERIAL VAGINOSIS NAAT BACTERI AL VAGINOSIS NAAT Lab Routine Vaginal irritation 02/19/2024 3:13 PM EDT [facility] BACTERIAL VAGINOSIS NAAT BACTERI AL VAGINOSIS NAAT Lab Routine Vaginal itching 08/05/2024 8:30 AM EDT [facility] Basic metabolic 2008 panel with ionized calcium - Serum or Plasma [facility] CINDY/TRICHOMONAS NAAT CINDY /TRICHOMONAS NAAT Lab Routine Vaginal irritation 12/04/2023 2:47 PM EDT [facility] Work Phone: CINDY/TRICHOMONAS NAAT CINDY /TRICHOMONAS NAAT Lab Routine Vulvar irritation 01/22/2024 1:46 PM EDT [facility] Work Phone: CINDY/TRICHOMONAS NAAT CINDY /TRICHOMONAS NAAT Lab Routine Vaginal irritation 02/19/2024 3:13 PM EDT [facility] CINDY/TRICHOMONAS NAAT CINDY /TRICHOMONAS NAAT Lab Routine Vaginal itching 08/05/2024 8:30 AM EDT [facility] Work Phone: CBC W Auto Different ial panel - Blood [facility] End: 12-08-2025 MG Breast - right Diagnostic for implant BOB DIAGNOSTIC RIGHT Radiology Routine Category 3 mammography result with short follow-up interval suggested for probably benign finding 1 Occurrences starting 11/08/2024 until 12/08/2025 [facility] Comment on above: 1 Occurrences starti ng 11/08/2024 until 12/08/2025 SURGICAL PATHOLOGY SURGICAL PATH OLOGY Lab Routine Vulvar irritation 02/19/2024 3:13 PM EDT [facility] Work Phone: Thyroid stimulating hormone measurement [facility] End: 12-08-2025 US Breast - right limited US BREAST LTD RIGHT Radiology Routine Category 3 mammography result with short follow-up interval suggested for probably benign finding 1 Occurrences starting 11/08/2024 until 12/08/2025 [facility] Work Phone: Comment on above: 1 Occurrences starti ng 11/08/2024 until 12/08/2025 [facility] Immunizations Immunization Date Immunization Notes Care Provider Alyssa titus 02-18-2024 influenza virus vacc ine, unspecified formulation Christel Simpson RELATIONSHIP BANKER.BAG MACHINE OPERATOR Work Phone: [facility] 03-21-2022 influenza virus vacc ine, unspecified formulation Christel Miles RELATIONSHIP BANKER.BAG MACHINE OPERATOR Work Phone: [facility] 03-24-2005 influenza virus vacc ine, unspecified formulation Christel Miles RELATIONSHIP BANKER.BAG MACHINE OPERATOR Work Phone: [facility] Payers Date Payer Category Payer Private Health Insurance 1ed [id number] 2024 Self-pay [id number] 2021 Medicare AETNA MEDICARE A ETNA MEDICARE PPO [id number] 2021-Present [phone] [address] [place] [address] PPO [id number] 2021 Medicare (Managed Care) [employer] [place] DICARE [id number] 2021 Private Health Insurance [facility] [id number] 1950 Unknown [id number] 2.16.840.1.660925.3.579.2. 64 1950 Unknown [id number] 2.16.840.1.625635.3.579.2. 1950 Unknown [id number] 2.16.840.1.187512.3.579.2. 1950 Unknown [id number] 2.16.840.1.147526.3.579.2. 1952 Unknown [id number] 2.16.840.1.746366.3.579.2. 1952 Unknown [id number] 2.16.840.1.904652.3.579.2. 67 1952 Unknown [id number] 2.16.840.1.661411.3.579.2. 651 1952 Unknown [id number] 2.16.840.1.877750.3.579.2. 651 1952 Unknown [id number] 2.16.840.1.392197.3.579.2. 65 1952 Unknown [id number] 2.16.840.1.318270.3.579.2. 65 1952 Unknown [id number] 2.16.840.1.383967.3.579.2. 65 1952 Unknown [id number] 2.16.840.1.623707.3.579.2. 1952 Unknown [id number] 2.16.840.1.096115.3.579.2. 1950 Unknown [id number] 2.840.1.522661.3.579.2. Medicare [id number] Private Health Insurance [facility] [id number] Unknown [id number] Unknown [id number] 2.840.1.360795.3.579.2. 462 Unknown [id number] 2.840.1.100579.3.579.2. 462 Unknown [id number] 2.840.1.454150.3.579.2. 462 Unknown [id number] 2.16.840.1.879486.3.579.2. 462 Unknown [id number] 2.16.840.1.635702.3.579.2. 462 Unknown [id number] 2.840.1.148930.3.579.2. 462 Unknown [id number] 2.840.1.999453.3.579.2. 462 Unknown [id number] 2.16.840.1.572002.3.579.2. 462 Unknown [id number] 2.16.840.1.978231.3.579.2. 462 Unknown [id number] 2.16.840.1.722008.3.579.2. 462 Unknown [id number] 2.16.840.1.646322.3.579.2. 462 Social History Date Type Detail Facility Start: 10-29-2021 End: 04-01-2022 Tobacco smoking status NHIS Unknown if ever smoked [facility] Work Phone: Start: 1950 Sex Assigned At Female [facility] Start: 01-19-2023 End: 03-16-2023 Tobacco smoking status NHIS Never smoked tobacco [facility] Start: 01-19-2023 Tobacco use and exposure Smoke less tobacco non-user [facility] Start: 12-04-2023 End: 02-19-2024 Alcohol intake Current non-drinker of alcohol (finding) [facility] Start: 12-04-2023 End: 01-22-2024 History of Social function [facility] Start: 12-04-2023 End: 01-22-2024 Tobacco use panel [facility] Start: 1950 Sex Assigned At Not on file [facility] National Score (1-10 0), lower number is lower risk 50 [facility] Sexual Orientation [facility] Start: 12-05-2015 Sex Female (finding) [facility] Functional Status Date Assessment Result Facility 07-11-2024 Functional Status ID band on, Allergy Band on, Safety level maintained [facility] Clinical Notes 12-04-2023 to 11-08-2024 Telephone Encounter - Bing Kellogg RN - 11/08/2024 3:44 PM EDTTelephone Encounter - Bing Kellogg RN - 11/08/2024 3:44 PM EDTTelephone Encounter - Lucrecia Lucero - 09/27/2024 2:56 PM EDT Note Date & Type Note Facility 11-08-2024 Telephone encounter Note Form atting of this note might be different from the original. Order faxed to [facility]. Bing Kellogg RN [facility] 11-08-2024 Miscellaneous Notes Formattin g of this note might be different from the original. Order faxed to [facility]. Bing Kellogg RN Orders filed. Please faxed to [facility]. Christel Sanches APRN.CANDY Right diagnostic mammogram and right breast ultrasound results received from [facility]. Results scanned into chart and copy to provider to review. documented in this encounter [facility] 11-08-2024 Telephone encounter Note Form atting of this note might be different from the original. Orders filed. Please faxed to [facility]. Christel Sanches APRN.CANDY [facility] 11-08-2024 Telephone encounter Note Form atting of this note might be different from the original. Right diagnostic mammogram and right breast ultrasound results received from [facility]. Results scanned into chart and copy to provider to review. [facility] 09-27-2024 Telephone encounter Note Form atting of this note might be different from the original. Order signed by and faxed to [facility]. Left detailed message on identified voicemail that order was faxed to [facility]. Ghislaine Monahan RN [facility] 09-27-2024 Miscellaneous Notes Formattin g of this note might be different from the original. Order signed by and faxed to [facility]. Left detailed message on identified voicemail that order was faxed to [facility]. Ghislaine Monahan RN Radiology order form to to sign. Click on link below to view last [facility] mammogram result. Ghislaine Monahan RN [facility] - Mammography [ID [id number]] Patient calling to report that she was advised to have repeat diagnostic mammogram performed six months later around 11/03/24). Please submit necessary order then fax to [facility] at [phone]. Please notify patient when order has been faxed so she may follow up with [facility] schedulers. documented in this encounter [facility] 09-27-2024 Telephone encounter Note Form atting of this note is different from the original. Radiology order form to to sign. Click on link below to view last [facility] mammogram result. Ghislaine Monahan RN [facility] - Mammography [ID [id number]] [facility] 09-27-2024 Telephone encounter Note Form atting of this note might be different from the original. Patient calling to report that she was advised to have repeat diagnostic mammogram performed six months later around 11/03/24). Please submit necessary order then fax to [facility] at [phone]. Please notify patient when order has been faxed so she may follow up with [facility] schedulers. [facility] 09-19-2024 Evaluation note Diagnosis Onset Date Resolution Hypokalemia acute September 19 2:56pm Palpitations acute September 19 2:56pm Pure hypercholesterolemia acute September 19, 2024 2:56pm Sinus pause acute September 19 2:56pm Tachycardia acute September 19 2:56pm Tachycardia acute November 08 1:23pm [facility] Work Phone: 1(562) 884-821506-02-2025 Evaluation note* Diagnosis Onset Date Resolution Status Admit Date Hypokalemia acute September 19 2:56pm Palpitations acute September 19 2:56pm Pure hypercholesterolemia acute September 19, 2024 2:56pm Sinus pause acute September 19 2:56pm Tachycardia acute September 19 2:56pm Elevated blood pressure reading acut e November 08, 2024 1:23pm Hypokalemia acute November 08 1:23pm Palpitations acute November 08, 025 1:23pm Pure hypercholesterolemia acute November 08, 2024 1:23pm Sinus pause acute November 08 1:23pm Tachycardia acute November 08 1:23pm [facility] Work Phone: 1(114) 294-177706-02-2025 Evaluation note* Diagnosis Onset Date Resolution Status Admit Date Hypokalemia acute September 19 2:56pm Palpitations acute September 19 2:56pm Pure hypercholesterolemia acute September 19, 2024 2:56pm Sinus pause acute September 19 2:56pm Tachycardia acute September 19 2:56pm [facility] Work Phone: 1(308) 502-745004-21-2025 Telephone encounter Note* Telephone Encounter - Christel Sanches APRN.CNP - 08/08/2024 7:23 AM EDT +BV- metrogel sent. Please notify pt. Christel Sanches APRN.CNP [facility]04-21-2025 Miscellaneous Notes* Telephone Encounter - Christel Sanches APRN.CNP - 08/08/2024 7:23 AM EDT +BV- metrogel sent. Please notify pt. Christel Sanches APRN.CNP [facility] NoteHNO ID: [id number] Author: CHRISTEL SANCHES APRN.CNP Service: ? Author Type: Nurse Practitioner Type: Progress Notes Filed: 08/05/2024 08:24 Note Text: Gema Romero is a 73 year old female who presents for vaginal pruritis for several week(s). Vaginal discharge: none. Itching: YES Dyspareunia: N/A Fever/chills: No Abdominal pain: No Bladder: Negative for dysuria or frequency Bowel: No blood in stool, pain with BM, tarry stool, persistent diarrhea or constipation Are you currently taking any medications to treat vaginitis: No Do you use feminine sprays, douches or deodorants: No Past medical, surgical, social history, medications and allergies reviewed and updated. OBJECTIVE: SENSITIVE EXAM: The sensitive examination was discussed with the Patient or Patient's Authorized Table Games Supervisor. As applicable, any other physician, advance practice provider, medical student, or other health professional student that will be observing or involved in the sensitive examination for educational or training purposes was discussed with the Patient or Authorized Table Games Supervisor. The Patient or Authorized Table Games Supervisor has agreed to proceed with the sensitive examination. (Sensitive examination includes inspection and/or palpation of the breasts, pelvis, prostate and anorectal regions). BP 126/78 Wt 162 lb (73.5kg) GENERAL: Well developed, well nourished in no apparent distress PELVIC: external genitalia normal, normal Bartholin's glands, urethra, [place]'s glands, no vulvar lesions, physiologic discharge present, normal appearing perineal body and perianal region ASSESSMENT/PLAN: 1. Vaginal itching - ICD9: 698.1, ICD10: N89.8 Will notify patient of test results. - CINDY/TRICHOMONAS NAAT - BACTERIAL VAGINOSIS NAAT If BV+ want metrogel Clobetasol 2x/day x 2 wks, then 3x/wk, if irritation is not resolving will try estrace cream externally Christel Sanches APRN.CNP Medical Decision Making: Problems: Low: Acute, uncomplicated illness or injury Data: Unique test(s) ordered: 2 Risk: Moderate: Drug management Medical Decision Making [facility]: [facility] of Present illness Narrative* Christel Sanches APRN.CNP - 08/05/2024 7:52 AM EDT Gema Romero is a 73 year old female who presents for vaginal pruritis for several week(s). Vaginal discharge: none. Itching: YES Dyspareunia: N/A Fever/chills: No Abdominal pain: No Bladder: Negative for dysuria or frequency Bowel: No blood in stool, pain with BM, tarry stool, persistent diarrhea or constipation Are you currently taking any medications to treat vaginitis: No Do you use feminine sprays, douches or deodorants: No Past medical, surgical, social history, medications and allergies reviewed and updated. OBJECTIVE: SENSITIVE EXAM: The sensitive examination was discussed with the Patient or Patient's Authorized Table Games Supervisor. As applicable, any other physician, advance practice provider, medical student, or other health professional student that will be observing or involved in the sensitive examination for educational or training purposes was discussed with the Patient or Authorized Table Games Supervisor. The Patient or Authorized Table Games Supervisor has agreed to proceed with the sensitive examination. (Sensitive examination includes inspection and/or palpation of the breasts, pelvis, prostate and anorectal regions). BP 126/78 Wt 162 lb (73.5kg) GENERAL: Well developed, well nourished in no apparent distress PELVIC: external genitalia normal, normal Bartholin's glands, urethra, [place]'s glands, no vulvar lesions, physiologic discharge present, normal appearing perineal body and perianal region ASSESSMENT/PLAN: 1. Vaginal itching - ICD9: 698.1, ICD10: N89.8 Will notify patient of test results. - CINDY/TRICHOMONAS NAAT - BACTERIAL VAGINOSIS NAAT If BV+ want metrogel Clobetasol 2x/day x 2 wks, then 3x/wk, if irritation is not resolving will try estrace cream externally Christel Sanches APRN.CNP Medical Decision Making: Problems: Low: Acute, uncomplicated illness or injury Data: Unique test(s) ordered: 2 Risk: Moderate: Drug management Medical Decision Making Level: 3 - Low [facility] NoteORIGINAL PROCEDURE: ULTRASOUND GUIDED THYROID FNA Right thyroid lobe nodule 07/11/2024 HISTORY: ORDERING SYSTEM PROVIDED HISTORY: Reason for Exam: NODULE TECHNIQUE: Maximum sterile barrier technique including hand hygiene, skin prep and sterile ultrasound technique utilized for procedure.. Sterile ultrasound technique also utilized for procedure. Informed consent was obtained after the procedure was discussed in detail including the risk, benefits, and alternatives. Nelson protocol was followed. The neck was prepped and draped in sterile fashion and local anesthesia was achieved with lidocaine. 25 gauge aspiration biopsy specimens of previously reported nodule in midportion right thyroid lobe were collected and sent for laboratory evaluation. Postprocedure images demonstrate no complications.. FINDINGS: Pre and intraprocedural images demonstrate hypoechoic nodule midportion right thyroid lobe consistent with previously described finding. Biopsy needle seen within target lesion. Postprocedure images demonstrate no complications. IMPRESSION: Successful ultrasound-guided 25 gauge fine-needle aspiration of the right thyroid nodule. No complication suggested. Interpreted by: Frantz Evans DO Preliminary Report By: Frantz Evans DO Electronically signed By Frantz Evans DO Dictated Date: 07/11/2024 2:07:02 PM Prelim Date: 07/11/2024 2:08:24 PM Sign Date: 07/11/2024 2:08:24 PM [facility]ing [facility] Evaluation + Plan noteExtracted from: Title:IR Pre-Procedure H&P Author:SHABNAM LE PA-C Date:07/11/24 Interventional Radiology Focused Preprocedure History/Physical Reason for Visit NODULE History of Presenting Illness/Planned IR Procedure Patient presents for thyroid nodule biopsy Allergies (1) ActiveSeverityReaction Zithromax Z-Pakrash Home Medications (12) Active aspirin 81 mg oral delayed release tablet 81 mg = 1 tab(s), Oral, Daily atenolol 25 mg, PO, Daily hydroCHLOROthiazide 25 mg oral tablet 25 mg = 1 tab(s), Oral, qDay LORazepam 0.5 mg oral tablet 0.5 mg = 1 tab(s), PRN, Oral, q8h lutein 20 mg oral capsule 20 mg = 1 cap(s), Oral, qDay MetFORMIN (Eqv-Glucophage XR) 500 mg oral tablet, EXTENDED RELEASE 1,000 mg = 2 tab(s), Oral, BID omeprazole 40 mg oral delayed release capsule 40 mg = 1 cap(s), Oral, qDay Potassium Chloride (Eqv-K-Tab) 20 mEq oral tablet, extended release 20 mEq = 1 tab(s), Oral, BID rosuvastatin 5 mg oral tablet 5 mg = 1 tab(s), Oral, Daily Synthroid 75 mcg (0.075 mg) oral tablet 75 mcg = 1 tab(s), Oral, qDay Vitamin D3 25 mcg (1000 intl units) oral capsule 25 mcg = 1 cap(s), Oral, Daily Yuvafem 10 mcg vaginal insert Problem List/Past Medical History Acid reflux Diabetes mellitus High blood pressure Hypothyroidism Surgical History Carpal tunnel Tubal ligation Family History No family history recorded. Social History Alcohol Details: Use: Never. Substance Abuse Details: Use: Never. Tobacco Details: Nicotine Use: Never (less than 100 in lifetime). Physical Exam Vitals: Eanvahqdyar36.9 (09:11) Systolic Blood Iggypazo538 (09:11) Diastolic Blood Argmkgmw97 (09:11) Pulse77 (09:11) SjA462 (09:11) Respiratory RateNo result General: Alert, cooperative. The remainder of the physical exam is noncontributory. Labs Anticoagulation Labs No qualifying data available. No qualifying data available. Assessment/Treatment Plan Image guided thyroid nodule biopsy Post Procedure Discharge Plan Patient to be discharged home. Kandi Le PA-C Interventional Radiology Pager: [phone] IR dept: [phone] [facility] 03-24-2025 Note* Camille Boilermaker Welder Rocio Perez: SIGN, AUTHOR, SIGN, AUTHOR, PERFORM Event Display: IR Procedure Record Authored Date: IR Procedure Record Summary Primary Physician: Finalized Date/Time: 07/11/24 11:14:38 Pt. Name: GEMA ROMERO Chris /Sex: 1950 Female Med Rec #: [id number] Physician: Financial #: [id number] Pt. 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 Farmer Details Time In 07/11/24 10:37:00 07/11/24 10:30:00 Time Out 07/11/24 11:01:00 07/11/24 11:01:00 Procedure/Preference IR Thyroid Biopsy SN IR Thyroid Biopsy SN Card Last Modified By: Tayler Obrien Technician Hannah L 07/11/24 Rocio Perez 07/11/24 11:01:23 11:01:52 Radiology Procedures- IR Entry 1 Procedure/Preference IR Thyroid Biopsy SN Actual Procedure IR THYROID BIOPSY Card Primary Procedure Yes Primary Surgeon LORENA JIMENES MD Anesthesia/Sedation Local Type Additional Procedure Times Start 07/11/24 10:37:00 Stop 07/11/24 10:56:00 Specialty Service SN Radiology Procedure EBL 0 mL Last Modified By: Tayler Obrien 07/11/24 11:00:28 Radiology Procedure Details - IR Entry 1 Radiology Sedation Case Times Sedation Total Time 0 Radiology - Fluid/Drainage Radiology Contrast Contrast Used? No Radiology Flouroscopy Fluoroscopy Used? No Fluoro Time 0 Radiology Local Radiology Procedure Site Site Condition No complications Dressing Type Bandaids Last Modified By: Tayler Obrien 07/11/24 11:01:01 General Comments: x 4 passes of 25 g needles Cultures and Specimens- IR Entry 1 Kind Specimen Type Nodule Description Other Disposition Pathology/Histology Lab Last Modified By: Tayler Obrien 07/11/24 10:45:50 General Case Data - IR Entry 1 Case Information Room AH IR US Case Level IR Level 2 Wound Class None Specialty SN Radiology Procedure ASA Class None Diagnosis Preop Diagnosis right thyroid nodule Postop Same As Preop Yes Postop Diagnosis right thyroid nodule Last Modified By: Tayler Obrien 07/11/24 10:46:26 Medication Administration- IR Entry 1 Medication 2% Lidocaine Time Administered 07/11/24 10:43:00 Route of Admin Local Volume 3 mL VORB Administered by Yes Administered by: FRANTZ EVANS DO Physician? Last Modified By: Tayler Obrien 07/11/24 10:44:06 Procedure Case Times- IR Entry 1 Patient In Procedure Patient In OR 07/11/24 10:30:00 Patient Out of OR 07/11/24 11:01:00 Procedure Start/Stop Procedure Start Time 07/11/24 10:47:00 Procedure Stop Time 07/11/24 10:56:00 Last Modified By: Tayler Obrien 07/11/24 11:01:37 Immediate Post OP Note - IR Entry 1 Immediate Post Yes Findings 25 ga aspiration Procedure Note specimens right thyroid displayed for mass Physician to review Closure Technique Closure Technique Other than Primary Last Modified By: Tayler Obrien 07/11/24 11:00:12 Immediate Post OP Note - IR Signed By: FRANTZ EVANS DO 07/11/24 10:58 Allergy Information- IR Entry 1 Allergies Reviewed? Yes Allergies Reviewed Medical Record With Last Modified By: Tayler Obrien 07/11/24 10:37:05 Radiology Protocols/Time Out- IR Entry 1 Preprocedure Clinician Verifies Correct patient ID When Clinically Confirmation of correct using name & date Indicated side(s) and site(s), or MRN, Accurate Correct diagnostic and procedure, complete radiology tests Informed Consent, H & P available, Required update immediately blood products, prior to procedure, if implants, devices applicable and/or special equipment available OR/Procedure Room/Bedside Time 07/11/24 10:41:00 Clinician Verifies Correct patient identity including EMR & records using name and date or medical record number, Accurate procedure consent form, Correct patient position, Necessary equipment is available, Anticipated non-routine events with surgical team (case duration, estimated blood loss, patient specific concerns)., Delatorre patient factors for recovery and management identified with surgical team. When Applicable Confirmation correct Team Members FRANTZ EVANS DO, side and site marked, Present for Time Out Tayler Obrien Relevant images and Rocio Perez results are properly labeled and appropriately displayed, Alcohol based prep dry, Double verification of sterility indicators complete Instrument Sterility Team Members FRANTZ EVANS DO Verifying Sterility Procedure IR Thyroid Biopsy SN Last Modified By: Tayler Obrien 07/11/24 10:41:15 Skin Prep- IR Entry 1 Procedure IR Thyroid Biopsy SN Skin Prep Prep Area Neck Side Right By FRANTZ EVANS DO Prep Agents Chloraprep Hair Removal Method N/A Last Modified By: Tayler Obrien 07/11/24 10:45:07 Patient Positioning- IR Entry 1 Procedure IR Thyroid Biopsy SN Body Position OP Supine Feet Uncrossed? Yes Pressure Points Yes Checked Last Modified By: Tayler Obrien 07/11/24 10:47:01 Radiology Procedure Plan - IR Entry 1 Radiology - Nursing Care Plan Outcome Statement The patient Outcome Statement The patient receives demonstrates knowledge Cont. appropriate of the expected medication(s), safely responses to the administered during the operative/invasive perioperative/invasive procedure., The period., The patient is patient's value system, free from signs and lifestyle, ethnicity, symptoms of injury and culture are caused by extraneous considered, respected, objects (equipment, and incorporated in the instrumentation, perioperative plan of sponges, or sharps)., care., The patient is The patient is at or free from signs and returning to symptoms of infection., normothermia at the The patient is free conclusion of the from signs and symptoms immediate of injury related to postoperative/invasive positioning. period. Radiology - Action Plan Action Plan - Patient demonstrates Outcome Statement knowledge of the expected reseponses to the invasive procedure, Patient is free from signs and symptoms of injury related to positioning., Patient receives appropriate medication(s), safely administered during the perioperative period., Patient is free from signs and symptoms of injury caused by extraneous objects (equipment, instrumentation, sponges, or sharps). Outcomes Met? Yes Predictive Maintenance Specialist Tyaler Obrien Procedure Plan Last Modified By: Tayler Obrien 07/11/24 10:46:12 Transfer Post Procedure- IR Entry 1 RAD - Transport to Recovery Via Ambulatory Post-op Destination Home Transported By Tayler Obrien Post Procedure Time Out Double Verification Yes Date/Time Verified 07/11/24 10:37:00 of ID band on patient Completed Verfied ID Band on Tayler Obrien by Rocio Perez Last Modified By: Tayler Obrien 07/11/24 11:01:15 Case Comments <None> Finalized By: Tayler Obrien Document Signatures Signed By: Tayler Obrien 07/11/24 11:02 Tayler Obrien 07/11/24 11:14 [facility] 03-24-2025 Hospital Discharge instructions Patient Education 07/11/2024 10:18:40 Thyroid Needle Biopsy, Care After Thyroid Needle Biopsy, Care After This sheet gives you information about how to care for yourself after your procedure. Your health care provider may also give you more specific instructions. If you have problems or questions, contact your health care provider. What can I expect after the procedure? After the procedure, it is common to have: Soreness and tenderness that lasts for a few days. Bruising where the needle was inserted (puncture site). Follow these instructions at home: Take dxgd-sqv-srxwqfx and prescription medicines only as told by your health care provider. To help ease discomfort, keep your head raised (elevated) when you are lying down. When you move from lying down to sitting up, use both hands to support the back of your head and neck. Check your puncture site every day for signs of infection. Check for: ?Redness, swelling, or pain. ?Fluid or blood. ?Warmth. ?Pus or a bad smell. Return to your normal activities as told by your health care provider. Ask your health care provider what activities are safe for you. Keep all follow-up visits as told by your health care provider. This is important. Contact a health care provider if: You have redness, swelling, or pain around your puncture site. You have fluid or blood coming from your puncture site. Your puncture site feels warm to the touch. You have pus or a bad smell coming from your puncture site. You have a fever. Get help right away if: You have severe bleeding from the puncture site. You have difficulty swallowing. You have swollen glands (lymph nodes) in your neck. Summary It is common to have some bruising and soreness where the needle was inserted in your lower front neck area (puncture site). Check your puncture site every day for signs of infection, such as redness, swelling, or pain. Get help right away if you have severe bleeding from your puncture site. This information is not intended to replace advice given to you by your health care provider. Make sure you discuss any questions you have with your health care provider. Document Released: 11/01/2014 Document Revised: 03/19/2018 Document Reviewed: 01/18/2018 [employer] Patient Education 2020 [employer]. Follow Up Care 06/17/2024 10:47:02 With:Follow up with primary care provider Address:Unknown When: Unknown With:GABRIELLE ZIMMERMAN NP Address: [address] [place] [address] [place] [id number] When: Unknown Comments:Follow-up as scheduled [facility] 03-24-2025 Note* Exam Date Time Procedure Performing Provider Status 07/11/24 11:40 AM IR Thyroid Biopsy FRANTZ EVANS; Kimi (Verified) [id number] ORIGINAL PROCEDURE: ULTRASOUND GUIDED THYROID FNA Right thyroid lobe nodule 07/11/2024 HISTORY: ORDERING SYSTEM PROVIDED HISTORY: Reason for Exam: NODULE TECHNIQUE: Maximum sterile barrier technique including hand hygiene, skin prep and sterile ultrasound technique utilized for procedure.. Sterile ultrasound technique also utilized for procedure. Informed consent was obtained after the procedure was discussed in detail including the risk, benefits, and alternatives. Nelson protocol was followed. The neck was prepped and draped in sterile fashion and local anesthesia was achieved with lidocaine. 25 gauge aspiration biopsy specimens of previously reported nodule in midportion right thyroid lobe were collected and sent for laboratory evaluation. Postprocedure images demonstrate no complications.. FINDINGS: Pre and intraprocedural images demonstrate hypoechoic nodule midportion right thyroid lobe consistent with previously described finding. Biopsy needle seen within target lesion. Postprocedure images demonstrate no complications. IMPRESSION: Successful ultrasound-guided 25 gauge fine-needle aspiration of the right thyroid nodule. No complication suggested. Interpreted by: Frantz Evans DO Preliminary Report By: Frantz Evans DO Electronically signed By Frantz Evans DO Dictated Date: 07/11/2024 2:07:02 PM Prelim Date: 07/11/2024 2:08:24 PM Sign Date: 07/11/2024 2:08:24 PM Ordering Provider: GABRIELLE ZIMMERMAN [id number] Note IR Procedure Record Summary Primary Physician: Finalized Date/Time: 07/11/24 11:14:38 Pt. Name: GEMA ROMERO Chris /Sex: 1950 Female Med Rec #: [id number] Physician: Financial #: [id number] Pt. Type: O Room/Bed: / Admit/Disch: 07/11/24 08:52:00 - Institution: Allergies identified in patient's electronic medical record at time of printing on 07/11/24 Entry 1 Substance Zithromax Z-Pierce Reaction Type Allergy Last Modified By: MARCEL Martinez 11/17/09 20:46:28 Case Attendance- IR Entry 1 Entry 2 Case Attendee FRANTZ EVANS Technician Hannah L Role Performed Radiologist Procedure Diversified [employer] Farmer Details Time In 07/11/24 10:37:00 07/11/24 10:30:00 Time Out 07/11/24 11:01:00 07/11/24 11:01:00 Procedure/Preference IR Thyroid Biopsy SN IR Thyroid Biopsy SN Card Last Modified By: Tayler Obrien Technician Hannah L 07/11/24 Rocio Perez 07/11/24 11:01:23 11:01:52 Radiology Procedures- IR Entry 1 Procedure/Preference IR Thyroid Biopsy SN Actual Procedure IR THYROID BIOPSY Card Primary Procedure Yes Primary Surgeon LORENA JIMENES MD Anesthesia/Sedation Local Type Additional Procedure Times Start 07/11/24 10:37:00 Stop 07/11/24 10:56:00 Specialty Service SN Radiology Procedure EBL 0 mL Last Modified By: Tayler Obrien 07/11/24 11:00:28 Radiology Procedure Details - IR Entry 1 Radiology Sedation Case Times Sedation Total Time 0 Radiology - Fluid/Drainage Radiology Contrast Contrast Used? No Radiology Flouroscopy Fluoroscopy Used? No Fluoro Time 0 Radiology Local Radiology Procedure Site Site Condition No complications Dressing Type Bandaids Last Modified By: Tayler Obrien 07/11/24 11:01:01 General Comments: x 4 passes of 25 g needles Cultures and Specimens- IR Entry 1 Kind Specimen Type Nodule Description Other Disposition Pathology/Histology Lab Last Modified By: Tayler Obrien 07/11/24 10:45:50 General Case Data - IR Entry 1 Case Information Room AH IR US Case Level IR Level 2 Wound Class None Specialty SN Radiology Procedure ASA Class None Diagnosis Preop Diagnosis right thyroid nodule Postop Same As Preop Yes Postop Diagnosis right thyroid nodule Last Modified By: Tayler Obrien 07/11/24 10:46:26 Medication Administration- IR Entry 1 Medication 2% Lidocaine Time Administered 07/11/24 10:43:00 Route of Admin Local Volume 3 mL VORB Administered by Yes Administered by: FRANTZ EVANS DO Physician? Last Modified By: Tayler Obrien 07/11/24 10:44:06 Procedure Case Times- IR Entry 1 Patient In Procedure Patient In OR 07/11/24 10:30:00 Patient Out of OR 07/11/24 11:01:00 Procedure Start/Stop Procedure Start Time 07/11/24 10:47:00 Procedure Stop Time 07/11/24 10:56:00 Last Modified By: Tayler Obrien 07/11/24 11:01:37 Immediate Post OP Note - IR Entry 1 Immediate Post Yes Findings 25 ga aspiration Procedure Note specimens right thyroid displayed for mass Physician to review Closure Technique Closure Technique Other than Primary Last Modified By: Tayler Obrien 07/11/24 11:00:12 Immediate Post OP Note - IR Signed By: FRANTZ EVANS DO 07/11/24 10:58 Allergy Information- IR Entry 1 Allergies Reviewed? Yes Allergies Reviewed Medical Record With Last Modified By: Tayler Obrien 07/11/24 10:37:05 Radiology Protocols/Time Out- IR Entry 1 Preprocedure Clinician Verifies Correct patient ID When Clinically Confirmation of correct using name & date Indicated side(s) and site(s), or MRN, Accurate Correct diagnostic and procedure, complete radiology tests Informed Consent, H & P available, Required update immediately blood products, prior to procedure, if implants, devices applicable and/or special equipment available OR/Procedure Room/Bedside Time 07/11/24 10:41:00 Clinician Verifies Correct patient identity including EMR & records using name and date or medical record number, Accurate procedure consent form, Correct patient position, Necessary equipment is available, Anticipated non-routine events with surgical team (case duration, estimated blood loss, patient specific concerns)., Delatorre patient factors for recovery and management identified with surgical team. When Applicable Confirmation correct Team Members FRANTZ EVANS DO, side and site marked, Present for Time Out Tayler Obrien Relevant images and Rocio Perez results are properly labeled and appropriately displayed, Alcohol based prep dry, Double verification of sterility indicators complete Instrument Sterility Team Members FRANTZ EVANS DO Verifying Sterility Procedure IR Thyroid Biopsy SN Last Modified By: Tayler Obrien 07/11/24 10:41:15 Skin Prep- IR Entry 1 Procedure IR Thyroid Biopsy SN Skin Prep Prep Area Neck Side Right By FRANTZ EVANS DO Prep Agents Chloraprep Hair Removal Method N/A Last Modified By: Tayler Obrien 07/11/24 10:45:07 Patient Positioning- IR Entry 1 Procedure IR Thyroid Biopsy SN Body Position OP Supine Feet Uncrossed? Yes Pressure Points Yes Checked Last Modified By: Tayler Obrien 07/11/24 10:47:01 Radiology Procedure Plan - IR Entry 1 Radiology - Nursing Care Plan Outcome Statement The patient Outcome Statement The patient receives demonstrates knowledge Cont. appropriate of the expected medication(s), safely responses to the administered during the operative/invasive perioperative/invasive procedure., The period., The patient is patient's value system, free from signs and lifestyle, ethnicity, symptoms of injury and culture are caused by extraneous considered, respected, objects (equipment, and incorporated in the instrumentation, perioperative plan of sponges, or sharps)., care., The patient is The patient is at or free from signs and returning to symptoms of infection., normothermia at the The patient is free conclusion of the from signs and symptoms immediate of injury related to postoperative/invasive positioning. period. Radiology - Action Plan Action Plan - Patient demonstrates Outcome Statement knowledge of the expected reseponses to the invasive procedure, Patient is free from signs and symptoms of injury related to positioning., Patient receives appropriate medication(s), safely administered during the perioperative period., Patient is free from signs and symptoms of injury caused by extraneous objects (equipment, instrumentation, sponges, or sharps). Outcomes Met? Yes Predictive Maintenance Specialist Tayler Obrien Procedure Plan Last Modified By: Tayler Obrien 07/11/24 10:46:12 Transfer Post Procedure- IR Entry 1 RAD - Transport to Recovery Via Ambulatory Post-op Destination Home Transported By Tayler Obrien Post Procedure Time Out Double Verification Yes Date/Time Verified 07/11/24 10:37:00 of ID band on patient Completed Verfied ID Band on Tayler Obrien by Rocio Perez Last Modified By: Tayler Obrien 07/11/24 11:01:15 Case Comments Finalized By: Tayler Obrien Document Signatures Signed By: Tayler Obrien 07/11/24 11:02 Tayler Obrien 07/11/24 11:14 [facility] [id number] Summary of episode note Discharge Instructions Thank you for allowing [facility] to assist you with your healthcare needs. The following is importantdischarge information regarding your hospital visit. Your Care Team POLY SUTHERLAND MD What to do next Follow Up Appointments Follow Up with Follow up with primary care provider Follow Up with GABRIELLE ZIMMERMAN NP Where:[id number] [facility] [address] [place] [address] Additional Information: Follow-up as scheduled The Following Activity and Diet Have Been Ordered for You No qualifying data available. No qualifying data available. The Following Equipment Has Been Ordered for You No qualifying data available. The Following Treatments Have Been Ordered for You Discharge Labs No qualifying data available. Discharge Radiology No qualifying data available. Other Therapies No qualifying data available. Post Acute Orders No qualifying data available. Someone Will Contact You Regarding These Home Health Referrals No home referrals have been ordered for you. No one will call you. Allergies Zithromax Z-Pierce rash Medications Please ask your primary doctor or pharmacist before taking any other medication not listed, including over the counter drugs, herbal medications, vitamins and or supplements as they may interact withyour home medications. What How Much When Instructions Last Dose Unchanged aspirin (aspirin 81 mg oral delayed release tablet) 1 tab(s) by mouth Every day Unchanged atenolol 25 Milligram by mouth Every day Unchanged cholecalciferol (Vitamin D3 25 mcg (1000 intl units) oral capsule) 1 cap by mouth Every day Unchanged estradiol topical (Yuvafem 10 mcg vaginal insert) Unchanged hydroCHLOROthiazide (hydroCHLOROthiazide 25 mg oral tablet) 1 tab(s) by mouth Once a day Unchanged levothyroxine (Synthroid 75 mcg (0.075 mg) oral tablet) 1 tab(s) by mouth Once a day Unchanged LORazepam (LORazepam 0.5 mg oral tablet) 1 tab(s) by mouth Every 8 hours as needed for as needed for anxiety Unchanged lutein (lutein 20 mg oral capsule) 1 cap by mouth Once a day Unchanged metFORMIN (MetFORMIN (Eqv-Glucophage XR) 500 mg oral tablet, EXTENDED RELEASE) 2 tab(s) by mouth Two (2) times a day Unchanged omeprazole (omeprazole 40 mg oral delayed release capsule) 1 cap by mouth Once a day Unchanged potassium chloride (Potassium Chloride (Eqv-K-Tab) 20 mEq oral tablet, extended release) 1 tab(s) by mouth Two (2) times a day Unchanged rosuvastatin (rosuvastatin 5 mg oral tablet) 1 tab(s) by mouth Every day Please take this list to your next doctor s visit. Bring all medications you take, including over the counter medications, herbals and other supplements with you to your doctor s visit. Patients and families are reminded to discard old lists and to update any records with all medication providers or retail pharmacies. Education Materials Thyroid Needle Biopsy, Care After This sheet gives you information about how to care for yourself after your procedure. Your health care provider may also give you more specific instructions. If you have problems or questions, contact your health care provider. What can I expect after the procedure? After the procedure, it is common to have: Soreness and tenderness that lasts for a few days. Bruising where the needle was inserted (puncture site). Follow these instructions at home: Take xieq-hly-gdeyibz and prescription medicines only as told by your health care provider. To help ease discomfort, keep your head raised (elevated) when you are lying down. When you move from lying down to sitting up, use both hands to support the back of your head and neck. Check your puncture site every day for signs of infection. Check for: ? Redness, swelling, or pain. ? Fluid or blood. ? Warmth. ? Pus or a bad smell. Return to your normal activities as told by your health care provider. Ask your health care provider what activities are safe for you. Keep all follow-up visits as told by your health care provider. This is important. Contact a health care provider if: You have redness, swelling, or pain around your puncture site. You have fluid or blood coming from your puncture site. Your puncture site feels warm to the touch. You have pus or a bad smell coming from your puncture site. You have a fever. Get help right away if: You have severe bleeding from the puncture site. You have difficulty swallowing. You have swollen glands (lymph nodes) in your neck. Summary It is common to have some bruising and soreness where the needle was inserted in your lower front neck area (puncture site). Check your puncture site every day for signs of infection, such as redness, swelling, or pain. Get help right away if you have severe bleeding from your puncture site. This information is not intended to replace advice given to you by your health care provider. Make sure you discuss any questions you have with your health care provider. Document Released: 11/01/2014 Document Revised: 03/19/2018 Document Reviewed: 01/18/2018 [employer] Patient Education 2020 [employer] Additional Information VACCINATE! IT SAVES LIVES! Members of the community who have not yet received the COVID-19 vaccine and would like to receive it can visit one of [facility] vaccine clinics. There are many vaccine clinic locations within the [facility]. For locations and available times, please visit [email or web address].gov/. It is important to note that some COVID mobile vaccine clinics are held outdoors and may be canceled in rainy or stormy conditions. To learn more about pediatric vaccinations (ages 5-11), we invite you to visit the [facility] webpage. https://www.[facility].org/pages/[email or web address]-Hkpji-Lsnggqtswho-Cpzwgfsjqn-Dospp-Rge stions.htmlTo learn more about the COVID-19 vaccine, we invite you to visit the CDC website for a list of frequently asked questions.https://www.cdc.gov/coronavirus/2019-ncov/vaccines/faq.html [facility] Patient Portal Access Instructions: Stay connected with your healthcare team and access your personal medical information anytime with the [facility] Patient Portal. Please follow the directions below to create your [facility] account: 1.Access the email account you provided upon registration to the hospital/physician office.2.Look for an invitation email from [facility].3.Open the email and access the invitation link: AcceptInvitation to [facility].4.Fill in the required harman to create your account. To access your account, visit [employer]/Review Trackers. Click the blue button labeled Access Patient Portal and then log in with the username and password that you created in the steps above. You will be able to view your test results, lab results, a summary of your visits, upcoming appointments and more. There is also a convenient messaging option where you can send secure messages to your p R[employer] Corporationvider. In addition, you will have the ability to download any documents or summaries to your computer and/or send the information securely to a physician. Remember that your healthcare information is confidential, so carefully consider who you will allowto register on the [facility] Patient Portal for access to your information. You can also access the [facility] Patient Portal on the [facility] meliton. Simply click on Patient Portal and then log into your account. If you would like to receive a full copy of your medical records, please contact the [facility] Medical Records Department by calling [phone], Thursday through Thursday between 8 a.m. and 4:30 p.m. HOW TO SAFELY DISPOSE OF PRESCRIPTION MEDICATIONS Please use one of the following methods to safely dispose of your unused medications. 1.Use a drug disposal kit: the drug disposal pouch allows you to safely discard your old and unuseddrugs. Ask your nurse to give you one when you are discharged.2.Visit a local take-back location: Many local pharmacies and police departments have programs that collect old and unwanted prescriptiondrugs. Call your local pharmacy or go to http://SocialSmack.Citysearch/8B4Np7z to find one close to you.3.Make use of household items: Use cat litter or old coffee grounds to dispose medications if other options arenot available. Mix your drugs with these household products, seal them in an airtight container andthrow it into the garbage. Call [facility]: [phone] to be sure your drugs can be disposed of in this way. Some medicines may require a different approach.4.Never flush your medications down the toilet. IF YOU HAVE BEEN PRESCRIBED AN OPIOID FOR PAIN If you have been prescribed an opioid (such as hydrocodone, oxycodone or morphine), it is critical to understand the possible side effects and risks of opioid pain medications. Even when taken as directed, opioids can have several side effects including: Tolerance, meaning you might need to take more of a medication for the same pain relief. Nausea, vomiting and/or constipation. Sleepiness, dizziness, dry mouth, confusion, depression or itching. Physical dependence, meaning you have withdrawal symptoms when a medication is stopped, can develop within a few days. KNOW YOUR RESPONSIBILITIES It is important to know exactly how much and how often to take the opioid pain medications you are prescribed. Never take opioids in higher amounts or more often than prescribed. Do not combine opioids with alcohol or other drugs that cause drowsiness, such as benzodiazepines, also known as benzos, including diazepam and alprazolam, muscle relaxants or sleep aids. Never sell or share prescription opioids. This is illegal. Store opioids in a secure place and out of reach of others (including children, family, friends and visitors). The last page of this document has been signed and retained as a CHART COPY. Signatures Patient Education Materials Thyroid Needle Biopsy, Care After Medication Leaflets My discharge plan and instructions have been reviewed and explained to me and I,CLOSE, GEMA Perez understand my current condition and have read and understand these discharge instructions. I have received a written copy of the plan/instructions. If I have questions, I am aware that I should contact my doctor. Patient/Table Games Supervisor Signature: Date/Time: Relationship to Patient: Witness Name/Signature: Date/Time: [facility]ian [id number] Summary of episode note Discharge Instructions Thank you for allowing [facility] to assist you with your healthcare needs. The following is importantdischarge information regarding your hospital visit. Your Care Team POLY SUTHERLAND MD What to do next Follow Up Appointments Follow Up with GABRIELLE ZIMMERMAN NP Where:[address] [place] [phone] Additional Information: Follow-up as scheduled The Following Activity and Diet Have Been Ordered for You No qualifying data available. No qualifying data available. The Following Equipment Has Been Ordered for You No qualifying data available. The Following Treatments Have Been Ordered for You Discharge Labs No qualifying data available. Discharge Radiology No qualifying data available. Other Therapies No qualifying data available. Post Acute Orders No qualifying data available. Someone Will Contact You Regarding These Home Health Referrals No home referrals have been ordered for you. No one will call you. Allergies Zithromax Z-Pierce rash Medications Please ask your primary doctor or pharmacist before taking any other medication not listed, including over the counter drugs, herbal medications, vitamins and or supplements as they may interact withyour home medications. What How Much When Instructions Last Dose Unchanged aspirin (aspirin 81 mg oral delayed release tablet) 1 tab(s) by mouth Every day Unchanged atenolol 25 Milligram by mouth Every day Unchanged cholecalciferol (Vitamin D3 25 mcg (1000 intl units) oral capsule) 1 cap by mouth Every day Unchanged estradiol topical (Yuvafem 10 mcg vaginal insert) Unchanged hydroCHLOROthiazide (hydroCHLOROthiazide 25 mg oral tablet) 1 tab(s) by mouth Once a day Unchanged levothyroxine (Synthroid 75 mcg (0.075 mg) oral tablet) 1 tab(s) by mouth Once a day Unchanged LORazepam (LORazepam 0.5 mg oral tablet) 1 tab(s) by mouth Every 8 hours as needed for as needed for anxiety Unchanged lutein (lutein 20 mg oral capsule) 1 cap by mouth Once a day Unchanged metFORMIN (MetFORMIN (Eqv-Glucophage XR) 500 mg oral tablet, EXTENDED RELEASE) 2 tab(s) by mouth Two (2) times a day Unchanged omeprazole (omeprazole 40 mg oral delayed release capsule) 1 cap by mouth Once a day Unchanged potassium chloride (Potassium Chloride (Eqv-K-Tab) 20 mEq oral tablet, extended release) 1 tab(s) by mouth Two (2) times a day Unchanged rosuvastatin (rosuvastatin 5 mg oral tablet) 1 tab(s) by mouth Every day Please take this list to your next doctor s visit. Bring all medications you take, including over the counter medications, herbals and other supplements with you to your doctor s visit. Patients and families are reminded to discard old lists and to update any records with all medication providers or retail pharmacies. Education Materials Thyroid Needle Biopsy, Care After This sheet gives you information about how to care for yourself after your procedure. Your health care provider may also give you more specific instructions. If you have problems or questions, contact your health care provider. What can I expect after the procedure? After the procedure, it is common to have: Soreness and tenderness that lasts for a few days. Bruising where the needle was inserted (puncture site). Follow these instructions at home: Take egvp-ksn-nthbiwa and prescription medicines only as told by your health care provider. To help ease discomfort, keep your head raised (elevated) when you are lying down. When you move from lying down to sitting up, use both hands to support the back of your head and neck. Check your puncture site every day for signs of infection. Check for: ? Redness, swelling, or pain. ? Fluid or blood. ? Warmth. ? Pus or a bad smell. Return to your normal activities as told by your health care provider. Ask your health care provider what activities are safe for you. Keep all follow-up visits as told by your health care provider. This is important. Contact a health care provider if: You have redness, swelling, or pain around your puncture site. You have fluid or blood coming from your puncture site. Your puncture site feels warm to the touch. You have pus or a bad smell coming from your puncture site. You have a fever. Get help right away if: You have severe bleeding from the puncture site. You have difficulty swallowing. You have swollen glands (lymph nodes) in your neck. Summary It is common to have some bruising and soreness where the needle was inserted in your lower front neck area (puncture site). Check your puncture site every day for signs of infection, such as redness, swelling, or pain. Get help right away if you have severe bleeding from your puncture site. This information is not intended to replace advice given to you by your health care provider. Make sure you discuss any questions you have with your health care provider. Document Released: 11/01/2014 Document Revised: 03/19/2018 Document Reviewed: 01/18/2018 [employer] Patient Education 2020 [employer] Additional Information VACCINATE! IT SAVES LIVES! Members of the community who have not yet received the COVID-19 vaccine and would like to receive it can visit one of [facility] vaccine clinics. There are many vaccine clinic locations within the [facility]. For locations and available times, please visit [email or web address].gov/. It is important to note that some COVID mobile vaccine clinics are held outdoors and may be canceled in rainy or stormy conditions. To learn more about pediatric vaccinations (ages 5-11), we invite you to visit the [facility] webpage. https://www.[facility].org/pages/7651-Hkbnj-Pfcifswjtsy-Banivnxqkv-Dtkja-Aqs stions.htmlTo learn more about the COVID-19 vaccine, we invite you to visit the CDC website for a list of frequently asked questions.https://www.cdc.gov/coronavirus/2019-ncov/vaccines/faq.html [employer] Patient Portal Access Instructions: Stay connected with your healthcare team and access your personal medical information anytime with the [employer] Patient Portal. Please follow the directions below to create your [employer] account: 1.Access the email account you provided upon registration to the hospital/physician office.2.Look for an invitation email from [facility].3.Open the email and access the invitation link: AcceptInvitation to [employer].4.Fill in the required harman to create your account. To access your account, visit [employer]/pbsiselenet. Click the blue button labeled Access Patient Portal and then log in with the username and password that you created in the steps above. You will be able to view your test results, lab results, a summary of your visits, upcoming appointments and more. There is also a convenient messaging option where you can send secure messages to your p rovider. In addition, you will have the ability to download any documents or summaries to your computer and/or send the information securely to a physician. Remember that your healthcare information is confidential, so carefully consider who you will allowto register on the [facility] Patient Portal for access to your information. You can also access the [facility] on the [facility] meliton. Simply click on Patient Portal and then log into your account. If you would like to receive a full copy of your medical records, please contact the [facility] Medical Records Department by calling [phone], Thursday through Thursday between 8 a.m. and 4:30 p.m. HOW TO SAFELY DISPOSE OF PRESCRIPTION MEDICATIONS Please use one of the following methods to safely dispose of your unused medications. 1.Use a drug disposal kit: the drug disposal pouch allows you to safely discard your old and unuseddrugs. Ask your nurse to give you one when you are discharged.2.Visit a local take-back location: Many local pharmacies and police departments have programs that collect old and unwanted prescriptiondrugs. Call your local pharmacy or go to http://SocialSmack.Citysearch/0D5Er4i to find one close to you.3.Make use of household items: Use cat litter or old coffee grounds to dispose medications if other options arenot available. Mix your drugs with these household products, seal them in an airtight container andthrow it into the garbage. Call [facility]: [phone] to be sure your drugs can be disposed of in this way. Some medicines may require a different approach.4.Never flush your medications down the toilet. IF YOU HAVE BEEN PRESCRIBED AN OPIOID FOR PAIN If you have been prescribed an opioid (such as hydrocodone, oxycodone or morphine), it is critical to understand the possible side effects and risks of opioid pain medications. Even when taken as directed, opioids can have several side effects including: Tolerance, meaning you might need to take more of a medication for the same pain relief. Nausea, vomiting and/or constipation. Sleepiness, dizziness, dry mouth, confusion, depression or itching. Physical dependence, meaning you have withdrawal symptoms when a medication is stopped, can develop within a few days. KNOW YOUR RESPONSIBILITIES It is important to know exactly how much and how often to take the opioid pain medications you are prescribed. Never take opioids in higher amounts or more often than prescribed. Do not combine opioids with alcohol or other drugs that cause drowsiness, such as benzodiazepines, also known as benzos, including diazepam and alprazolam, muscle relaxants or sleep aids. Never sell or share prescription opioids. This is illegal. Store opioids in a secure place and out of reach of others (including children, family, friends and visitors). The last page of this document has been signed and retained as a CHART COPY. Signatures Patient Education Materials Thyroid Needle Biopsy, Care After Medication Leaflets My discharge plan and instructions have been reviewed and explained to me and I,CLOSE, GEMA Chris understand my current condition and have read and understand these discharge instructions. I have received a written copy of the plan/instructions. If I have questions, I am aware that I should contact my doctor. Patient/Table Games Supervisor Signature: Date/Time: Relationship to Patient: Witness Name/Signature: Date/Time: [facility] [id number] Note Interventional Radiology Focused Preprocedure History/Physical Reason for Visit NODULE History of Presenting Illness/Planned IR Procedure Patient presents for thyroid nodule biopsy Allergies (1) ActiveSeverityReaction Zithromax Z-Pakrash Home Medications (12) Active aspirin 81 mg oral delayed release tablet 81 mg = 1 tab(s), Oral, Daily atenolol 25 mg, PO, Daily hydroCHLOROthiazide 25 mg oral tablet 25 mg = 1 tab(s), Oral, qDay LORazepam 0.5 mg oral tablet 0.5 mg = 1 tab(s), PRN, Oral, q8h lutein 20 mg oral capsule 20 mg = 1 cap(s), Oral, qDay MetFORMIN (Eqv-Glucophage XR) 500 mg oral tablet, EXTENDED RELEASE 1,000 mg = 2 tab(s), Oral, BID omeprazole 40 mg oral delayed release capsule 40 mg = 1 cap(s), Oral, qDay Potassium Chloride (Eqv-K-Tab) 20 mEq oral tablet, extended release 20 mEq = 1 tab(s), Oral, BID rosuvastatin 5 mg oral tablet 5 mg = 1 tab(s), Oral, Daily Synthroid 75 mcg (0.075 mg) oral tablet 75 mcg = 1 tab(s), Oral, qDay Vitamin D3 25 mcg (1000 intl units) oral capsule 25 mcg = 1 cap(s), Oral, Daily Yuvafem 10 mcg vaginal insert Problem List/Past Medical History Acid reflux Diabetes mellitus High blood pressure Hypothyroidism Surgical History Carpal tunnel Tubal ligation Family History No family history recorded. Social History Alcohol Details: Use: Never. Substance Abuse Details: Use: Never. Tobacco Details: Nicotine Use: Never (less than 100 in lifetime). Physical Exam Vitals: Kpftkrgsoew84.9 (09:11) Systolic Blood Jbjehipg268 (09:11) Diastolic Blood Puqamshn23 (09:11) Pulse77 (09:11) FfU010 (09:11) Respiratory RateNo result General: Alert, cooperative. The remainder of the physical exam is noncontributory. Labs Anticoagulation Labs No qualifying data available. No qualifying data available. Assessment/Treatment Plan Image guided thyroid nodule biopsy Post Procedure Discharge Plan Patient to be discharged home. Kandi Le PA-C Interventional Radiology Pager: [phone] IR dept: [phone] Available on [facility] Digitally Signed by KANDI LE PA-C on 07/11/2024 09:53 AM [facility] [id number] NoteHNO ID: [id number] Author: BING KELLOGG RN Service: ? Author Type: Registered Nurse Type: Progress Notes Filed: 05/06/2024 16:26 Note Text: Scan on 05/06/2024 3:02 PM by Provider, External, PA-C[facility] of Present illness Narrative* Bing Kellogg RN - 05/06/2024 4:26 PM EST Scan on 05/06/2024 3:02 PM by Provider, FIDELINA Garcia: [facility] Tele[facility] encounter Note * Telephone Encounter - Shaniqua Saunders RN - 03/02/2024 8:59 AM EST Patient notified of results, verbalizes understanding of instructions. Shaniqua Saunders RN [facility]11-13-2024 Miscellaneous Notes* Telephone Encounter - Shaniqua Saunders RN - 03/02/2024 8:59 AM EST Patient notified of results, verbalizes understanding of instructions. Shaniqua Saunders RN * Telephone Encounter - Jamia Delcid RN - 03/02/2024 8:43 AM EST Left message for patient to call office. Jamia Delcid RN * Telephone Encounter - Christel Snaches APRN.CNP - 03/02/2024 8:07 AM EST Please let the patient know that her vulvar biopsy showed plasma cell vulvitis. I would like her touse the clobetasol cream twice a day for 2 weeks just to that area, then 3 times a week. If this does not help with the irritation to let me know and we can try a different steroid cream. Christel Sanches APRN.CNP documented in this encounterCleveland [id number] Telephone encounter Note * Telephone Encounter - Jamia Delcid RN - 03/02/2024 8:43 AM EST Left message for patient to call office. Jamia Delcid RN [facility]11-13-2024 Telephone encounter Note* Telephone Encounter - Christel Sanches APRN.CNP - 03/02/2024 8:07 AM EST Please let the patient know that her vulvar biopsy showed plasma cell vulvitis. I would like her touse the clobetasol cream twice a day for 2 weeks just to that area, then 3 times a week. If this does not help with the irritation to let me know and we can try a different steroid cream. Christel Sanches APRN.CANDY [facility]11-11-2024 Telephone encounter Note* Telephone Encounter - Bing Kellogg RN - 02/29/2024 3:12 PM EST Patient called to inquire about her vulvar biopsy result from 02/18. Advised they are still in process and we will contact her once we receive them. Advised there may be a delay in results if the pathology lab is behind. Bing Kellogg RN [facility]11-11-2024 Miscellaneous Notes* Telephone Encounter - Bing Kellogg RN - 02/29/2024 3:12 PM EST Patient called to inquire about her vulvar biopsy result from 02/18. Advised they are still in process and we will contact her once we receive them. Advised there may be a delay in results if the pathology lab is behind. Bing Kellogg RN documented in this [facility] Tele[facility] encounter Note * Telephone Encounter - Bing Kellogg RN - 02/22/2024 10:09 AM EST Patient notified. Bing Kellogg RN [facility] Miscellaneous Notes* Telephone Encounter - Bing Kellogg RN - 02/22/2024 10:09 AM EST Patient notified. Bing Kellogg RN * Telephone Encounter - Christel Sanches APRN.CNP - 02/22/2024 10:01 AM EST Yes, I sent in Metrogel. Christel Sanches APRN.CNP * Telephone Encounter - Bing Kellogg RN - 02/22/2024 8:37 AM EST Patient notified. Asking if there is a medication that she can use to treat the vagina rather than another round of Flagyl. Briefly discussed Metrogel. Please advise. Bing Kellogg RN * Telephone Encounter - Christel Sanches APRN.CNP - 02/22/2024 7:43 AM EST BV positive. To treat with Flagyl 500mg PO BID for 7 days. 1) No alcohol during treatment and for 24 hours after last dose. 2) No intercourse during treatment. 3) Probiotic by mouth once daily for 30 days or as needed. Christel Sanches APRN.CNP [facility] Telephone encounter Note * Telephone Encounter - Christel Sanches APRN.CNP - 02/22/2024 10:01 AM EST Yes, I sent in Metrogel. Christel Sanches APRN.CNP [facility] Telephone encounter Note* Telephone Encounter - Bing Kellogg RN - 02/22/2024 8:37 AM EST Patient notified. Asking if there is a medication that she can use to treat the vagina rather than another round of Flagyl. Briefly discussed Metrogel. Please advise. Bing Kellogg RN [facility] Telephone encounter Note* Telephone Encounter - Christel Sanches APRN.CNP - 02/22/2024 7:43 AM EST BV positive. To treat with Flagyl 500mg PO BID for 7 days. 1) No alcohol during treatment and for 24 hours after last dose. 2) No intercourse during treatment. 3) Probiotic by mouth once daily for 30 days or as needed. Christel Sanches APRN.CNP [facility]11-01-2024 Instructions* Patient Instructions* Fariha Wolf LPN - 02/19/2024 2:33 PM EDT VULVAR BIOPSY PATIENT INSTRUCTIONS Many conditions may cause your group chief operator to suggest a vulvar biopsy including vulvar itching unresponsive to therapy, ulcerated lesions, pigmented lesions, and tumors. The biopsy result will assist your group chief operator to devise a treatment plan suitable to your condition. 1. Usually, there is a local discomfort, swelling, and skin discoloration. Using cold compresses overnight usually alleviates the discomfort considerably. Warm compresses thereafter can be used as needed. Prescribed analgesic (pain killers) are not necessary. You may use Advil, Tylenol, etc. for pain relief. 2. You may shower or take tub baths. 3. If sutures are used, they will dissolve in 7-14 days. 4. You should call the office if there is excessive bleeding, swelling, fever, chills, sweats, or difficulty walking. 5. Biopsy results will be available in 7-10 days. If you have not heard your results in 2 weeks please contact your physician. documented in [facility]24 NoteHNO ID: [id number] Author: CHRISTEL SANCHES APRN.BAG MACHINE OPERATOR Service: ? Author Type: Nurse Practitioner Type: Progress Notes Filed: 02/19/2024 15:31 Note Text: 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 Gema Romero is a 73 year old female who presents today for a vulvar biopsy. Indication: persistent pruritis. UNIVERSAL PROTOCOL / SAFETY CHECKLIST Procedure to be Performed:Vulvar Biopsy. Sign In: A Moment of CARE was completed. Personnel directly involved with the procedure wore the appropriate PPE (Personal Protective Equipment). Patient/Surrogate Stated/Verified: PATIENT VERIFIED(optional for EMERGENT procedures): Patient name, Date of , Relevant allergies, and The intended procedure Time Out Communication: Intended patient and procedure match the source documents. Consent documented and matches the intended procedure. Sign Out: SIGN OUT (optional for EMERGENT procedures): All specimen containers correctly labeled. No instruments, equipment or retained foreign bodies applicable. Post-procedure follow-up management communicated and Plan of Care Visit completed when applicable. PROCEDURE NOTE: GROSS LESIONS: Yes, skin discoloration BIOPSY: Area was cleansed with betadine and anesthetized with 1mL 1% lidocaine with 1:100,000 epi. 4mm [place]qu[place] punch used to biopsy region. HEMOSTASIS: Obtained with silver nitrate and pressure Procedure Summary: Patient tolerated procedure well. ASSESSMENT: Vuvlar biopsy BV/yeast ordered for vaginal irritation due to recent antibiotics PLAN: Specimens labeled and sent to Pathology. Will notify patient of results in 1-2 weeks. Post-procedure instructions reviewed and written material given to the patient. Christel Sanches APRN.[facility]NP[facility] History of Present illness Narrative* Christel Sanches APRN.CNP - 02/19/2024 2:21 PM EDT 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 Gema Romero is a 73 year old female who presents today for a vulvar biopsy. Indication: persistent pruritis. UNIVERSAL PROTOCOL / SAFETY CHECKLIST Procedure to be Performed:Vulvar Biopsy. Sign In: A Moment of CARE was completed. Personnel directly involved with the procedure wore the appropriate PPE (Personal Protective Equipment). Patient/Surrogate Stated/Verified: PATIENT VERIFIED(optional for EMERGENT procedures): Patient name, Date of , Relevant allergies, and The intended procedure Time Out Communication: Intended patient and procedure match the source documents. Consent documented and matches the intended procedure. Sign Out: SIGN OUT (optional for EMERGENT procedures): All specimen containers correctly labeled. No instruments, equipment or retained foreign bodies applicable. Post-procedure follow-up management communicated and Plan of Care Visit completed when applicable. PROCEDURE NOTE: GROSS LESIONS: Yes, skin discoloration BIOPSY: Area was cleansed with betadine and anesthetized with 1mL 1% lidocaine with 1:100,000 epi. 4mm [place] punch used to biopsy region. HEMOSTASIS: Obtained with silver nitrate and pressure Procedure Summary: Patient tolerated procedure well. ASSESSMENT: Vuvlar biopsy BV/yeast ordered for vaginal irritation due to recent antibiotics PLAN: Specimens labeled and sent to Pathology. Will notify patient of results in 1-2 weeks. Post-procedure instructions reviewed and written material given to the patient. Christel Sanches APRN.CANDY documented [facility] Telephone encounter Note * Telephone Encounter - Bing Kellogg RN - 01/25/2024 8:12 AM EDT Patient notified.Bing Kellogg RN [facility] Miscellaneous Notes* Telephone Encounter - Bing Kellogg RN - 01/25/2024 8:12 AM EDT Patient notified.Bing Kellogg, RN * Telephone Encounter - Christel Sanches APRN.CNP - 01/23/2024 8:31 AM EDT BV positive. To treat with Flagyl 500mg PO BID for 7 days. 1) No alcohol during treatment and for 24 hours after last dose. 2) No intercourse during treatment. 3) Probiotic by mouth once daily for 30 days or as needed. Christel Sanches APRN.CNP documented [facility] Telephone encounter Note * Telephone Encounter - Christel Sanches APRN.CNP - 01/23/2024 8:31 AM EDT BV positive. To treat with Flagyl 500mg PO BID for 7 days. 1) No alcohol during treatment and for 24 hours after last dose. 2) No intercourse during treatment. 3) Probiotic by mouth once daily for 30 days or as needed. Christel Sanches APRN.CNP [facility]24 NoteHNO ID: [id number] Author: CHRISTEL SANCHES APRN.CNP Service: ? Author Type: Nurse Practitioner Type: Progress Notes Filed: 01/22/2024 13:37 Note Text: Animal Science Professor offered: Patient declinesArlene Ribeiro is a 73 year old who presents for an annual gynecologic exam with complaints, vulvar irritation. Postmenopausal: Yes HRT use: Yes, unsure How lon yr. Last Pap: 08/04/2005 normal HPV: 08/01/2005 negative History of abnormal pap: No Last mammogram: 2022 normal @ [facility] History of abnormal mammogram: Yes breast biopsy Sexually active: No 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 LMP: Postmenopausal Age at Menarche: Age at First : Age at Menopause: Web Operations Administrator History Comments: Sexual Activity: Not Currently; Male; menopausal/tubal ligation Contraception: Surgical PAST MEDICAL HISTORY Diagnosis Date Other and unspecified hyperlipidemia Prediabetes Symptomatic menopausal or female climacteric states Unspecified essential hypertension Unspecified symptom associated with female genital organs 04/20/2002 vulvadynia PAST SURGICAL HISTORY Procedure Laterality Date BIOPSY BREAST OPEN INCISIONAL BX BREAST NEEDLE CORE W/O IMAGING GUIDANCE SPX DILATION AND CURETTAGE DXAND/THER NONOBSTETRIC LIG/TRNSXJ FLP TUBE ABDL/VAG APPR UNI/BI FAMILY HISTORY Problem Relation Age of Onset Coronary Artery Disease Father Colon Cancer Sister Heart disease Brother Diabetes Maternal Grandmother SOCIAL HISTORY Social History Tobacco Use Smoking status: Never Smokeless tobacco: Never Vaping Use Vaping status: Never Used Substance Use Topics Alcohol use: No Drug use: No REVIEW OF SYSTEMS Abdomen: No abdominal pain, nausea, vomiting, diarrhea, or constipation. No bloating, early satiety, indigestion, or increased flatulence. Bladder: No dysuria, gross hematuria, urinary frequency, urinary urgency, or incontinence Breast: No breast lumps, nipple d/c, overlying skin changes, redness or skin retraction Allergies and current medication updated:Yes SENSITIVE EXAM: The sensitive examination was discussed with the Patient or Patient's Authorized Table Games Supervisor. As applicable, any other physician, advance practice provider, medical student, or other health professional student that will be observing or involved in the sensitive examination for educational or training purposes was discussed with the Patient or Authorized Table Games Supervisor. The Patient or Authorized Table Games Supervisor has agreed to proceed with the sensitive examination. (Sensitive examination includes inspection and/or palpation of the breasts, pelvis, prostate and anorectal regions). EXAM: BP 134/80 Ht 5' .839 (1.55m) Wt 163 lb (73.9kg) BMI 30.97 kg/(m2). GENERAL: pleasant, female in no apparent distress HEENT: Normocephalic, atraumatic, mucus membranes moist, and no lesions NECK: Supple, full range of motion, no adenopathy, and thyroid normal DERMATOLOGY: Normal, without lesions, non-icteric, and non-hirsute BREAST: soft, non-tender, symmetric, no dominant mass, normal nipple-areolar complex, no lymphadenopathy, and no nipple discharge CHEST: Normal inspiratory effort ABDOMEN: soft, non-tender, and no masses PELVIC: external genitalia normal, normal Bartholin's glands, urethra, [place]'s glands, no cervical lesions, physiologic discharge present, normal appearing perineal body and perianal region, red discoloration at the 5 o'clock position on the inner left labia BIMANUAL: uterus normal size, shape and consistency, no adnexal masses, and non-tender RECTOVAGINAL: deferred. NEURO: alert and oriented x3,exam grossly non-focal EXTREMITIES: normal ASSESSMENT/PLAN: 1) Health maintenance: Pap/HPV screening no longer needed Mammogram ordered for [facility] Nutrition, exercise and routine health maintenance exams reviewed. Calcium/Vitamin D supplementation information provided. 2) Follow up one year or sooner as needed Pt is to schedule appt for vulvar biopsy Christel Sanches APRN.[facility]10-04-2024 History of Present illness Narrative* Christel Sanches APRN.CANDY - 01/22/2024 12:46 PM EDT Animal Science Professor offered: Patient declinesArlene Ribeiro is a 73 year old who presents for an annual gynecologic exam with complaints, vulvarirritation. Postmenopausal: Yes HRT use: Yes, unsure How lon yr. Last Pap: 08/04/2005 normal HPV: 08/01/2005 negative History of abnormal pap: No Last mammogram: 2022 normal @ [facility] History of abnormal mammogram: Yes breast biopsy Sexually active: No 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 LMP: Postmenopausal Age at Menarche: Age at First : Age at Menopause: Web Operations Administrator History Comments: Sexual Activity: Not Currently; Male; menopausal/tubal ligation Contraception: Surgical PAST MEDICAL HISTORY Diagnosis Date Other and unspecified hyperlipidemia Prediabetes Symptomatic menopausal or female climacteric states Unspecified essential hypertension Unspecified symptom associated with female genital organs 04/20/2002 vulvadynia PAST SURGICAL HISTORY Procedure Laterality Date BIOPSY BREAST OPEN INCISIONAL BX BREAST NEEDLE CORE W/O IMAGING GUIDANCE SPX DILATION & CURETTAGE DX&/THER NONOBSTETRIC LIG/TRNSXJ FLP TUBE ABDL/VAG APPR UNI/BI FAMILY HISTORY Problem Relation Age of Onset Coronary Artery Disease Father Colon Cancer Sister Heart disease Brother Diabetes Maternal Grandmother SOCIAL HISTORY Social History Tobacco Use Smoking status: Never Smokeless tobacco: Never Vaping Use Vaping status: Never Used Substance Use Topics Alcohol use: No Drug use: No REVIEW OF SYSTEMS Abdomen: No abdominal pain, nausea, vomiting, diarrhea, or constipation. No bloating, early satiety, indigestion, or increased flatulence. Bladder: No dysuria, gross hematuria, urinary frequency, urinary urgency, or incontinence Breast: No breast lumps, nipple d/c, overlying skin changes, redness or skin retraction Allergies and current medication updated:Yes SENSITIVE EXAM: The sensitive examination was discussed with the Patient or Patient's Authorized Table Games Supervisor. As applicable, any other physician, advance practice provider, medical student, or other health professional student that will be observing or involved in the sensitive examination for educational or training purposes was discussed with the Patient or Authorized Table Games Supervisor. The Patient or Authorized Table Games Supervisor has agreed to proceed with the sensitive examination. (Sensitive examination includes inspection and/or palpation of the breasts, pelvis, prostate and anorectal regions). EXAM: BP 134/80 Ht 5' .839 (1.55m) Wt 163 lb (73.9kg) BMI 30.97 kg/(m^2). GENERAL: pleasant, female in no apparent distress HEENT: Normocephalic, atraumatic, mucus membranes moist, and no lesions NECK: Supple, full range of motion, no adenopathy, and thyroid normal DERMATOLOGY: Normal, without lesions, non-icteric, and non-hirsute BREAST: soft, non-tender, symmetric, no dominant mass, normal nipple-areolar complex, no lymphadenopathy, and no nipple discharge CHEST: Normal inspiratory effort ABDOMEN: soft, non-tender, and no masses PELVIC: external genitalia normal, normal Bartholin's glands, urethra, [place]'s glands, no cervical lesions, physiologic discharge present, normal appearing perineal body and perianal region, red discoloration at the 5 o'clock position on the inner left labia BIMANUAL: uterus normal size, shape and consistency, no adnexal masses, and non-tender RECTOVAGINAL: deferred. NEURO: alert and oriented x3,exam grossly non-focal EXTREMITIES: normal ASSESSMENT/PLAN: 1) Health maintenance: Pap/HPV screening no longer needed Mammogram ordered for [facility] Nutrition, exercise and routine health maintenance exams reviewed. Calcium/Vitamin D supplementation information provided. 2) Follow up one year or sooner as needed Pt is to schedule appt for vulvar biopsy Christel Sanches APRN.CANDY [facility] Telephone encounter Note * Telephone Encounter - Shaniqua Saunders RN - 12/07/2023 10:16 AM EDT Patient notified of results, verbalizes understanding of instructions. Shaniqua Saunders RN [facility]08-[facility] Miscellaneous Notes* Telephone Encounter - Shaniqua Saunders RN - 12/07/2023 10:16 AM EDT Patient notified of results, verbalizes understanding of instructions. Shaniqua Saunders RN * Telephone Encounter - Fuentes Cotton APRN.CNP - 12/07/2023 9:52 AM EDT Please notify patient: You tested positive for bacterial vaginosis. This is an imbalance of your normal bacteria. Your partner does not need treated. I will send a prescription for Flagyl 500mg by mouth twice a day for 7 days. 1) No alcohol during treatment and for 72 hours after last dose. 2) No intercourse during treatment. 3) Probiotic by mouth once daily for 30 days or as needed. Please let me know if you have any questions. Fuentes Cotton APRN.CNP documented in this encounterMer[facility]08-[facility]-2024 Telephone encounter Note * Telephone Encounter - Fuentes Cotton APRN.CNP - 12/07/2023 9:52 AM EDT Please notify patient: You tested positive for bacterial vaginosis. This is an imbalance of your normal bacteria. Your partner does not need treated. I will send a prescription for Flagyl 500mg by mouth twice a day for 7 days. 1) No alcohol during treatment and for 72 hours after last dose. 2) No intercourse during treatment. 3) Probiotic by mouth once daily for 30 days or as needed. Please let me know if you have any questions. Fuentes Cotton APRN.CANDY [facility]08-16-2024 NoteHNO ID: [id number] Author: CHRISTEL SANCHES APRN.CNP Service: ? Author Type: Nurse Practitioner Type: Progress Notes Filed: 12/04/2023 16:01 Note Text: Animal Science Professor offered: Patient declines. Gema Romero is a 72 year old female who presents for problem visit for vaginal itching. HPI: Patient is here for vaginal itching. She does not notice any abnormal discharge or fowl odor. She states that the itching is internally and external. Patient also states her clitoris is itching and swollen as well, she also has a little pain in this area as well. 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 LMP: Postmenopausal Age at Menarche: Age at First : Age at Menopause: Web Operations Administrator History Comments: Sexual Activity: Not Currently; Male; menopausal/tubal ligation Contraception: Surgical PAST MEDICAL HISTORY No date: Other and unspecified hyperlipidemia No date: Prediabetes No date: Symptomatic menopausal or female climacteric states No date: Unspecified essential hypertension 04/20/2002: Unspecified symptom associated with female genital organs Comment: vulvadynia PAST SURGICAL HISTORY No date: BIOPSY BREAST OPEN INCISIONAL No date: BX BREAST NEEDLE CORE W/O IMAGING GUIDANCE SPX No date: DILATION AND CURETTAGE DXAND/THER NONOBSTETRIC No date: LIG/TRNSXJ FLP TUBE ABDL/VAG APPR UNI/BI FAMILY HISTORY Problem Relation Age of Onset Coronary Artery Disease Father Colon Cancer Sister Heart disease Brother Diabetes Maternal Grandmother Social History Tobacco Use Smoking status: Never Smokeless tobacco: Never Vaping Use Vaping Use: Never used Substance Use Topics Alcohol use: No Drug use: No Current Outpatient Medications Medication Sig LORazepam (ATIVAN) 0.5 mg 0.5 mg as needed. cloNIDine HCl (CATAPRES) 0.1 mg tablet Take 0.1 mg by mouth as needed. ibuprofen (ADVIL ORAL) Take by mouth. triamcinolone (KENALOG) 0.1 % lotion Apply to affected area as needed. omeprazole (PRILOSEC) 40 mg capsule potassium chloride 20 mEq TbER metFORMIN ER (GLUCOPHAGE XR) 500 mg 24 hr tablet Take 1,000 mg by mouth two times a day. SYNTHROID 75 mcg tablet hydroCHLOROthiazide 25 mg tablet rosuvastatin (CRESTOR) 5 mg tablet Take 5 mg by mouth once daily. aspirin, enteric coated (ASPIRIN, ENTERIC COATED) 81 mg EC tablet Take 81 mg by mouth once daily. ubidecarenone Q-10 (CO Q-10) 10 mg cap Take by mouth two times a day. omega3/dha/epa/fish oil/vit D3 (OMEGA-3 PLUS VITAMIN D3 ORAL) Take by mouth. Estradiol (YUVAFEM) 10 mcg vaginal tablet Use 1 tablet vaginally two times a week. clobetasol (TEMOVATE) 0.05 % cream Apply to affected area 1-3x/week for maintenance. ATENOLOL 50 MG TAB Take 25 mg by mouth once daily. vit C/vit E acet/lutein/min (OCUVITE LUTEIN ORAL) Take by mouth. (Patient not taking: Reported on 12/04/2023) clobetasol propionate/emoll (CLOBETASOL E TOPICAL) Apply to affected area. (Patient not taking: Reported on 12/04/2023) No current facility-administered medications for this visit. Allergies As of Date: 12/04/2023 Allergen Noted Reaction AZITHROMYCIN 08/18/2002 Rash ERYTHROMYCIN BASE 08/18/2002 Fully Assessed 12/04/2023 REVIEW OF SYSTEMS Expanded ROS: N/A Allergies and current medication updated:Yes EXAM: BP 134/80 Wt 169 lb (76.7kg) GENERAL: pleasant, female in no apparent distress HEENT: Normocephalic, atraumatic, mucus membranes moist, and no lesions CHEST: Normal inspiratory effort PELVIC: redness to the labia NEURO: alert and oriented x3,exam grossly non-focal EXTREMITIES: normal ASSESSMENT/PLAN: 1. Vaginal irritation - ICD9: 623.9, ICD10: N89.8 Will notify patient of test results. - CINDY/TRICHOMONAS NAAT - BACTERIAL VAGINOSIS NAAT Yuvafem daily x 7 days, then 2x/wk Clobetasol 2x/day x7 days then 2-3x/wk Christel Sanches APRN.CNP Medical Decision Making: Problems: Low: Acute, uncomplicated illness or injury Data: Unique test(s) ordered: 2 Risk: Moderate: Drug management Medical Decision Making Level: 3 [facility] History of Present illness Narrative* Christel Sanches APRN.CNP - 12/04/2023 2:11 PM EDT Animal Science Professor offered: Patient declines. Gema Romero is a 72 year old female who presents for problem visit for vaginal itching. HPI: Patient is here for vaginal itching. She does not notice any abnormal discharge or fowl odor. She states that the itching is internally and external. Patient also states her clitoris is itching and swollen as well, she also has a little pain in this area as well. 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 LMP: Postmenopausal Age at Menarche: Age at First : Age at Menopause: Web Operations Administrator History Comments: Sexual Activity: Not Currently; Male; menopausal/tubal ligation Contraception: Surgical PAST MEDICAL HISTORY No date: Other and unspecified hyperlipidemia No date: Prediabetes No date: Symptomatic menopausal or female climacteric states No date: Unspecified essential hypertension 04/20/2002: Unspecified symptom associated with female genital organs Comment: vulvadynia PAST SURGICAL HISTORY No date: BIOPSY BREAST OPEN INCISIONAL No date: BX BREAST NEEDLE CORE W/O IMAGING GUIDANCE SPX No date: DILATION & CURETTAGE DX&/THER NONOBSTETRIC No date: LIG/TRNSXJ FLP TUBE ABDL/VAG APPR UNI/BI FAMILY HISTORY Problem Relation Age of Onset Coronary Artery Disease Father Colon Cancer Sister Heart disease Brother Diabetes Maternal Grandmother Social History Tobacco Use Smoking status: Never Smokeless tobacco: Never Vaping Use Vaping Use: Never used Substance Use Topics Alcohol use: No Drug use: No Current Outpatient Medications Medication Sig LORazepam (ATIVAN) 0.5 mg 0.5 mg as needed. cloNIDine HCl (CATAPRES) 0.1 mg tablet Take 0.1 mg by mouth as needed. ibuprofen (ADVIL ORAL) Take by mouth. triamcinolone (KENALOG) 0.1 % lotion Apply to affected area as needed. omeprazole (PRILOSEC) 40 mg capsule potassium chloride 20 mEq TbER metFORMIN ER (GLUCOPHAGE XR) 500 mg 24 hr tablet Take 1,000 mg by mouth two times a day. SYNTHROID 75 mcg tablet hydroCHLOROthiazide 25 mg tablet rosuvastatin (CRESTOR) 5 mg tablet Take 5 mg by mouth once daily. aspirin, enteric coated (ASPIRIN, ENTERIC COATED) 81 mg EC tablet Take 81 mg by mouth once daily. ubidecarenone Q-10 (CO Q-10) 10 mg cap Take by mouth two times a day. omega3/dha/epa/fish oil/vit D3 (OMEGA-3 PLUS VITAMIN D3 ORAL) Take by mouth. Estradiol (YUVAFEM) 10 mcg vaginal tablet Use 1 tablet vaginally two times a week. clobetasol (TEMOVATE) 0.05 % cream Apply to affected area 1-3x/week for maintenance. ATENOLOL 50 MG TAB Take 25 mg by mouth once daily. vit C/vit E acet/lutein/min (OCUVITE LUTEIN ORAL) Take by mouth. (Patient not taking: Reported on 12/04/2023) clobetasol propionate/emoll (CLOBETASOL E TOPICAL) Apply to affected area. (Patient not taking: Reported on 12/04/2023) No current facility-administered medications for this visit. Allergies As of Date: 12/04/2023 Allergen Noted Reaction AZITHROMYCIN 08/18/2002 Rash ERYTHROMYCIN BASE 08/18/2002 Fully Assessed 12/04/2023 REVIEW OF SYSTEMS Expanded ROS: N/A Allergies and current medication updated:Yes EXAM: BP 134/80 Wt 169 lb (76.7kg) GENERAL: pleasant, female in no apparent distress HEENT: Normocephalic, atraumatic, mucus membranes moist, and no lesions CHEST: Normal inspiratory effort PELVIC: redness to the labia NEURO: alert and oriented x3,exam grossly non-focal EXTREMITIES: normal ASSESSMENT/PLAN: 1. Vaginal irritation - ICD9: 623.9, ICD10: N89.8 Will notify patient of test results. - CINDY/TRICHOMONAS NAAT - BACTERIAL VAGINOSIS NAAT Yuvafem daily x 7 days, then 2x/wk Clobetasol 2x/day x7 days then 2-3x/wk Christel Sanches APRN.CNP Medical Decision Making: Problems: Low: Acute, uncomplicated illness or injury Data: Unique test(s) ordered: 2 Risk: Moderate: Drug management Medical Decision Making Level: 3 - [facility] Diagnosis Onset Date Resolution Status Palpitations acute Pure hypercholesterolemia ac luz Sinus pause acute Tachycardia [facility] Work Phone: Evaluation note* Diagnosis Onset Date Resolution Status Edema of right upper arm acu te Hypokalemia acute Palpitations acute Pure hypercholesterolemia ac luz Sinus pause acute Tachycardia [facility] Work Phone: Evaluation note* Diagnosis Vaginal irritation- Primary Unspecified noninflammatory disorder of vagina documented in this encounter [facility]* Diagnosis Bacterial vaginosis- Primary Vaginitis and vulvovaginitis, unspecified documented in this encounter [facility] note* Diagnosis Encounter for gynecological examination (general) (routine) without abnormal findings- Primary Encounter for screening mammogram for breast cancer Vulvar irritation Other specified noninflammatory disorder of vulva and perineum documented in this encounter [facility] note* Diagnosis Vulvar irritation- Primary Other specified noninflammatory disorder of vulva and perineum Vaginal irritation Unspecified noninflammatory disorder of vagina documented in this encounter [facility]* Diagnosis Vaginal itching- Primary Pruritus of genital organs documented in this encounter [facility] note* Diagnosis Category 3 mammography result with short follow-up interval suggested for probably benign finding- Primary Inconclusive [facility] N[facility]ative No data available for this section [facility] Reason for referral (narrative)No [facility] Summary Purpose Family History No Family History Records Found Relationship Condition Age at Onset Recorded Date/T hemanth father Cardiac disease Unknown Kidney disorder Unknown brother Cardiac disease Unknown Advance Directives No Advanced Directives Records FoundNo Advanced Directives Records FoundNo Advanced Directives Records FoundNo Advanced Directives Records FoundNo Advanced Directives Records FoundNo Advanced Directives Records Found Chief Complaint and Reason for Visit Chief Complaint Amb Documentation PALPITATIONS/REF. OMRAN SINUS PAUSE PALP Reason for Visit Palpitations Pure hypercholesterolemia Sinus pause Tachycardia Chief Complaint 4 M FU E ORDER Other specified soft tissue disorders Reason for Visit Edema of right upper arm Hypokalemia Palpitations Pure hypercholesterolemia Sinus pause Tachycardia Chief Complaint Admit Date 9 M FU September 19, 2024 2:56p m Reason for Visit Admit Date Hypokalemia September 19, 2024 2:56p m Palpitations September 19, 2024 2:56p m Pure hypercholesterolemia September 19, 2024 2:56pm Sinus pause September 19, 2024 2:56p m Tachycardia September 19, 2024 2:56p m Chief Complaint Admit Date 9 M FU September 19, 2024 2:56p m Tachycardia/See Clinical Note November 08, 2024 1:23pm Reason for Visit Admit Date Hypokalemia September 19, 2024 2:56p m Palpitations September 19, 2024 2:56p m Pure hypercholesterolemia September 19, 2024 2:56pm Sinus pause September 19, 2024 2:56p m Tachycardia September 19, 2024 2:56p m Tachycardia November 08, 2024 1:23 pm Reason for Visit Admit Date Hypokalemia September 19, 2024 2:56p m Palpitations September 19, 2024 2:56p m Pure hypercholesterolemia September 19, 2024 2:56pm Sinus pause September 19, 2024 2:56p m Tachycardia September 19, 2024 2:56p m Elevated blood pressure reading October 1:23pm Hypokalemia November 08, 2024 1:23 pm Palpitations November 08, 2024 1:23 pm Pure hypercholesterolemia November 08 1:23pm Sinus pause November 08, 2024 1:23 pm Tachycardia November 08, 2024 1:23 pm Additional Source Comments INFORMATION SOURCE (unrecogn ized section and content) DATE CREATED AUTHOR 11/08/2020 [facility] DATE CREATED AUTHOR AUTHOR'S ORGANIZ ATION 06/28/2022 [facility] ([place]) DATE CREATED AUTHOR AUTHOR'S ORGANIZ ATION 09/22/2024 [facility] DATE CREATED AUTHOR AUTHOR'S ORGANIZ ATION 11/10/2024 [facility] DATE CREATED AUTHOR AUTHOR'S ORGANIZ ATION 11/18/2024 [facility] DATE CREATED AUTHOR AUTHOR'S ORGANIZ ATION 11/29/2024 [facility] Goals (unrecognized section and content) Goals may be documented in a n alternate sectionGoals may be documented in an alternate sectionGoals may be documented in an alternate section No data available for this sectionGoals may be documented in an alternate sectionGoals may be documented in an alternate sectionGoals may be documented in an alternate section Source Comments (unrecognize d section and content) In the event this informatio n is protected by the Federal Confidentiality of Alcohol and Drug Abuse Patient Records regulations: The Federal rules restrict any use of the information to criminally investigate or prosecute any alcohol or drug abuse patient.[facility] Hospital[facility] the event this information is protected by the Federal Confidentiality of Alcohol and Drug Abuse Patient Records regulations: The Federal rules restrict any use of the information to criminally investigate or prosecute any alcohol or drug abuse patient.[facility] HospitalIn the event this information is protected by the Federal Confidentiality of Alcohol and Drug Abuse Patient Records regulations: The Federal rules restrict any use of the information to criminally investigate or prosecute any alcohol or drug abuse patient.[facility] HospitalIn the event this information is protected by the Federal Confidentiality of Alcohol and Drug Abuse Patient Records regulations: The Federal rules restrict any use of the information to criminally investigate or prosecute any alcohol or drug abuse patient.[facility] HospitalIn the event this information is protected by the Federal Confidentiality of Alcohol and Drug Abuse Patient Records regulations: The Federal rules restrict any use of the information to criminally investigate or prosecute any alcohol or drug abuse patient.[facility] HospitalIn the event this information is protected by the Federal Confidentiality of Alcohol and Drug Abuse Patient Records regulations: The Federal rules restrict any use of the information to criminally investigate or prosecute any alcohol or drug abuse patient.[facility] HospitalIn the event this information is protected by the Federal Confidentiality of Alcohol and Drug Abuse Patient Records regulations: The Federal rules restrict any use of the information to criminally investigate or prosecute any alcohol or drug abuse patient.[facility] HospitalIn the event this information is protected by the Federal Confidentiality of Alcohol and Drug Abuse Patient Records regulations: The Federal rules restrict any use of the information to criminally investigate or prosecute any alcohol or drug abuse patient.[facility] HospitalIn the event this information is protected by the Federal Confidentiality of Alcohol and Drug Abuse Patient Records regulations: The Federal rules restrict any use of the information to criminally investigate or prosecute any alcohol or drug abuse patient.[facility] HospitalIn the event this information is protected by the Federal Confidentiality of Alcohol and Drug Abuse Patient Records regulations: The Federal rules restrict any use of the information to criminally investigate or prosecute any alcohol or drug abuse patient.[facility] HospitalIn the event this information is protected by the Federal Confidentiality of Alcohol and Drug Abuse Patient Records regulations: The Federal rules restrict any use of the information to criminally investigate or prosecute any alcohol or drug abuse patient.[facility] HospitalIn the event this information is protected by the Federal Confidentiality of Alcohol and Drug Abuse Patient Records regulations: The Federal rules restrict any use of the information to criminally investigate or prosecute any alcohol or drug abuse patient.[facility] HospitalIn the event this information is protected by the Federal Confidentiality of Alcohol and Drug Abuse Patient Records regulations: The Federal rules restrict any use of the information to criminally investigate or prosecute any alcohol or drug abuse patient.[facility] Care Teams (unrecognized sec tion and content) Predictive Maintenance Specialist Relationship Specialty Start Date End Date Poly Sutherland MD [address] [place] [address] PCP - General Infectious Diseases 01/19/23 Predictive Maintenance Specialist Relationship Specialty Start Date End Date Poly Sutherland MD [address] [place] [address] PCP - General Infectious Diseases 01/19/23 Predictive Maintenance Specialist Relationship Specialty Start Date End Date Poly Sutherland MD [address] [place] [address] PCP - General Infectious Diseases 01/19/23 Predictive Maintenance Specialist Relationship Specialty Start Date End Date Poly Sutherland MD [address] [place] [address] PCP - General Infectious Diseases 01/19/23 Predictive Maintenance Specialist Relationship Specialty Start Date End Date Poly Sutherland MD [address] [place], [place] [address] PCP - General Infectious Diseases 01/19/23 Predictive Maintenance Specialist Relationship Specialty Start Date End Date Poly Sutherland MD [address] [place] [address] PCP - General Infectious Diseases 01/19/23 Predictive Maintenance Specialist Relationship Specialty Start Date End Date Poly Sutherland MD [address] [place] [address] PCP - General Infectious Diseases 01/19/23 Team Status: Active Member Role Status Dates Dr. Poly Sutherland MD Primary Care Provider Active Team Status: Inactive Member Role Status Dates Dr. Poly Sutherland MD Primary Care Provider Active Start: September 19, 2024 End: September 19, 2024 Dr. Poly Sutherland MD Referring Provider Active Start: September 19, 2024 End: September 19, 2024 Nay Welsh DRUG INSPECTOR, DRUG INSPECTOR-C Attending Provider Active Start: September 19, 2024 End: September 19, 2024 Predictive Maintenance Specialist Relationship Specialty Start Date End Date Poly Sutherland MD [address] [place] [address] PCP - General Infectious Diseases 01/19/23 Predictive Maintenance Specialist Relationship Specialty Start Date End Date Poly Sutherland MD [address] [address] PCP - General Infectious Diseases 01/19/23 Team Status: Active Member Role/Relationship Status Dates Dr. Poly Sutherland MD Primary Care Provider Active Team Status: Inactive Member Role/Relationship Status Dates Dr. Poly Sutherland MD Primary Care Provider Active Start: September 19, 2024 End: September 19, 2024 Dr. Poly Sutherland MD Referring Provider Active Start: September 19, 2024 End: September 19, 2024 Nay Welsh NP, DRUG INSPECTOR-C Attending Provider Active Start: September 19, 2024 End: September 19, 2024 Team Status: Inactive Member Role/Relationship Status Dates Dr. Poly Sutherland MD Primary Care Provider Active Start: November 08, 2024 End: November 08, 2024 Dr. Poly Sutherland MD Referring Provider Active Start: November 08, 2024 End: November 08, 2024 Nay Welsh NP, DRUG INSPECTOR-C Attending Provider Active Start: November 08, 2024 End: November 08, 2024 Predictive Maintenance Specialist Relationship Specialty Start Date End Date Poly Sutherland MD [address] [address] PCP - General Infectious Diseases 01/19/23 Team Status: Inactive Member Role/Relationship Status Dates Dr. Poly Sutherland MD Primary Care Provider Active Start: November 08, 2024 End: November 08, 2024 Nay Welsh NP, DRUG INSPECTOR-C Attending Provider Active Start: November 08, 2024 End: November 08, 2024 Nay Welsh NP, DRUG INSPECTOR-C Referring Provider Active Start: November 08, 2024 End: November 08, 2024 Reason for Visit (unrecogniz ed section and content) Reason Comments Results Reason Comments Well Woman Reason Comments vulvar biopsy Reason Comments Mammogram Abnormality Reason Comments Vaginal Problem Reason Comments Orders Repeat Diagnostic Ma mmogram Reason Onset Date Comments Results 08/08/2024 Reason Comments Results FOR RECORDS PERTAINING TO PATIENTS WHO ARE OR HAVE BEEN ENROLLED IN A CHEMICAL DEPENDENCY/SUBSTANCEABUSE PROGRAM, SOME INFORMATION MAY BE OMITTED. This clinical summary was aggregated from multiple sources. Caution should be exercised in using it in the provision of clinical care. This summary normalizes information from multiple sources, and as a consequence, information in this document may materially change the coding, format and clinical context of patient data. In addition, data may be omitted in some cases. CLINICAL DECISIONS SHOULD BE BASED ON THE PRIMARY CLINICAL RECORDS. [facility]. provides no warranty or guarantee of the accuracy or completeness of information in this document.
== END | disposition home or self-care (01) ==
LOC: PSN 07:47
PROVIDERS: PCP Internal Medicine Infectious Disease; Referring Provider Nurse Practitioner Gerontology; Visit Provider Nurse Practitioner Gerontology
DX: R00.0 Tachycardia, unspecified (principal); I45.5 Other specified heart block
CPT/HCPCS: 93225; 93226